=== PATIENT | male | born 1955 | race Caucasian/White ===

== ENCOUNTER 2016-05-17 18:58 | Emergency (ER) | payer SELFPAY ==
[2016-05-17 19:27] LABS: BASOPHILS 0.3 % (0.0-2.0); EOSINOPHILS 0.8 % (0-7); HEMATOCRIT 43.7 % (42.0-54.0); HEMOGLOBIN 15.2 g/dL (13.5-17.5); IMMATURE GRANULOCYTES 0.4 % (0-5); LYMPHOCYTES 40.6 % (15-50); MCH 36.2 pg (26.0-34.0); MCHC 34.8 g/dL (31.0-37.0); MEAN PLATELET VOLUME 9.5 fL (7.4-10.4); MONOCYTES 9.9 % (2-11); PLATELET COUNT 104 10x3/uL (130-400); RDW 12.5 % (11.5-14.5); WBC 7.7 10x3/uL (4.8-10.8)
[2016-05-17 19:52] LABS: ALBUMIN 4.1 g/dL (3.4-5.0); ALKALINE PHOSPHATASE 74 U/L (46-116); ALT (SGPT) 62 U/L (10-68); BILIRUBIN - TOTAL 0.24 mg/dL (0.2-1.3); CALC OSMOLALITY 272 mosm/kg (275-300); CALCIUM 8.2 mg/dL (8.5-10.1); CARBON DIOXIDE 27.1 mmol/L (21.0-32.0); CHLORIDE - SERUM 100 mmol/L (98-107); CREATININE - SERUM 0.8 mg/dL (0.6-1.3); GLUCOSE 98 mg/dL (74-106); POTASSIUM - SERUM 4.7 mmol/L (3.5-5.1); PROTEIN - SERUM 7.3 g/dL (6.4-8.2); SODIUM 137 mmol/L (136-145); UREA NITROGEN 10 mg/dL (7-18); eGFR NON AFRICAN AMERICAN > 90 mL/min (90-120)
[2016-05-17 20:03] LABS: CHOL - HDL RATIO 1.8 ratio (2.3-4.9); CHOLESTEROL, TOTAL 149 mg/dL (0-200); CKMB 2.2 U/L (0.0-3.6); CREATINE KINASE 216 UL (21-232); HDL CHOLESTEROL 81 mg/dL (32-96); LDL CHOLESTEROL 56 mg/dL (0-100); LDL-HDL RATIO 0.7 ratio (1.5-3.5); TRIGLYCERIDE 63 mg/dL (30-200); TROPONIN-I < 0.017 ng/mL (0.000-0.060)
== END 2016-05-17 21:28 | disposition home or self-care (01) ==
LOC: D.ER 18:58
PROVIDERS: Family Medicine
DX: R07.89 Other chest pain (principal); Y04.2XXA Assault by strike against or bumped into by another person, initial encounter; Y93.89 Activity, other specified; Y92.89 Other specified places as the place of occurrence of the external cause; F17.200 Nicotine dependence, unspecified, uncomplicated

== ENCOUNTER 2018-04-30 11:52 | Inpatient (IN) | payer MEDICAID ==
[~2018-04-30] VITALS: Ht 185.4 cm; Wt 61.2 kg
[2018-04-30 13:00] LABS: BASOPHILS 0.2 % (0-2); EOSINOPHILS 0 % (0-7); HEMOGLOBIN 13.3 g/dL (13.5-17.5); IMMATURE GRANULOCYTES 0.2 % (0-5); LYMPHOCYTES 23.9 % (15-50); MCH 37.4 pg (26.0-34.0); MCV 106.7 fL (80.0-100.0); MEAN PLATELET VOLUME 9.2 fL (7.4-10.4); MONOCYTES 6.3 % (2-11); NEUTROPHILS 69.4 % (40-80); RBC 3.56 10x6/uL (4.20-6.10); WBC 4.6 10x3/uL (4.8-10.8)
[2018-04-30 13:11] LABS: ANION GAP 9.5 mmol/L (8-16); BILIRUBIN - TOTAL 0.35 mg/dL (0.2-1.3); CALCIUM 8.8 mg/dL (8.5-10.1); CARBON DIOXIDE 24.7 mmol/L (21.0-32.0); CREATININE - SERUM 2.7 mg/dL (0.6-1.3); POTASSIUM - SERUM 3.2 mmol/L (3.5-5.1); PROTEIN - SERUM 7.2 g/dL (6.4-8.2)
[2018-04-30 13:40] LABS: PLATELET COUNT 28 10x3/uL (130-400)
--- NOTE | 2018-04-30 13:40 | NUR ---
CRITICAL LAB VALUE PLATELET COUNT OF 28 CALLED IN BY RADHA FROM LAB. EDP NOTIFIED AT THIS TIME.
[2018-04-30 13:47] LABS: PLATELET ESTIMATE DECREASED
[2018-04-30 15:38] LABS: INR 1.05 (0.85-1.17); PROTIME 13.2 SECONDS (11.6-15.0)
--- NOTE | 2018-04-30 16:55 | NUR ---
PT SPOUSE : SHIV PEPE [phone]
--- NOTE | 2018-04-30 19:00 | NUR ---
REPORT RECEIVED AND CARE OF PT ASSUMED. PT LYING IN SUPINE POSITION VISITING WITH SPOUSE. IV IN RIGHT FA PATENT WITH LR INFUSING AT 125 ML / HR. PT JUST ARRIVED ON UNIT AT 1825.
[2018-04-30 20:00] VITALS: BP 127/80
[2018-04-30 21:19] VITALS: BP 127/80; BMI 17.8
--- NOTE | 2018-04-30 21:48 | NUR ---
ADMISSION ASSESSMENT AND HISTORY COMPLETE. SCD'S PLACED ON PT PER ORDER. IV IN RIGHT FA PATENT WITH LR INFUSING AT 125 ML / HR. FALL PRECAUTIONS PLACED PT HAD A FALL LAST NIGHT AT HOME. IS AT BEDSIDE.
--- NOTE | 2018-04-30 22:52 | NUR ---
TELEMETRY PLACED ON PT PER ORDER.
[2018-05-01] VITALS: BP 107/63
[2018-05-01 04:00] VITALS: BP 105/71
[2018-05-01 06:44] LABS: BASOPHILS 0.3 % (0-2); EOSINOPHILS 0.3 % (0-7); HEMATOCRIT 31.7 % (42.0-54.0); HEMOGLOBIN 11.1 g/dL (13.5-17.5); LYMPHOCYTES 39.2 % (15-50); MCH 36.9 pg (26.0-34.0); MCV 105.3 fL (80.0-100.0); MEAN PLATELET VOLUME 8.9 fL (7.4-10.4); MONOCYTES 12.5 % (2-11); NEUTROPHILS 47.7 % (40-80); RBC 3.01 10x6/uL (4.20-6.10); RDW 13.1 % (11.5-14.5)
[2018-05-01 06:45] LABS: PLATELET COUNT 28 10x3/uL (130-400); WBC 3.4 10x3/uL (4.8-10.8)
[2018-05-01 07:06] LABS: ALBUMIN 3.1 g/dL (3.4-5.0); BILIRUBIN - TOTAL 0.37 mg/dL (0.2-1.3); CALCIUM 8.1 mg/dL (8.5-10.1); CARBON DIOXIDE 24.9 mmol/L (21.0-32.0); MAGNESIUM - SERUM 1.3 mg/dL (1.8-2.4); POTASSIUM - SERUM 3.9 mmol/L (3.5-5.1)
--- NOTE | 2018-05-01 08:00 | NUR ---
PATIENT IN BED WITH IV INTACT. NO COMPLAINTS OR SIGNS OF DISTRESS. EXPLAINED NOT TO EAT UNTIL AFTER CT SCANS. VERBALIZED UNDERSTANDING. CALL LIGHT WITHIN REACH.
[2018-05-01 09:09] VITALS: BP 129/81
[2018-05-01 10:00] VITALS: Ht 185.4 cm; Wt 61.2 kg
--- NOTE | 2018-05-01 11:20 | NUR ---
PATIENT RECIEVED BED BATH BY AT THIS TIME. IV INTACT. CALL LIGHT WITHIN REACH.
[2018-05-01 13:15] VITALS: BP 120/80
--- NOTE | 2018-05-01 14:15 | NUR ---
URINE SPECIMEN TAKEN TO LAB.
[2018-05-01 14:19] LABS: APPEARANCE CLEAR (CLEAR); BILIRUBIN NEGATIVE (NEGATIVE); COLOR STRAW (YELLOW); GLUCOSE NEGATIVE (NEGATIVE); KETONE LARGE mg/dL (NEGATIVE); NITRITE NEGATIVE (NEGATIVE); PROTEIN TRACE mg/dL (NEGATIVE); UROBILINOGEN NORMAL (NORMAL)
[2018-05-01 14:21] LABS: BACTERIA FEW /hpf (NONE SEEN); EPITHELIAL CELLS OCC /hpf (0-5); MUCUS <1+ /lpf (NONE SEEN); RED CELLS - URINE 0-5 /hpf (0-5); WHITE CELLS - URINE 0-5 /hpf (0-5)
--- NOTE | 2018-05-01 16:30 | NUR ---
PATIENT IN BED WITH IV INTACT. NO COMPLAINTS. CALL LIGHT WITHIN REACH.
--- NOTE | 2018-05-01 18:55 | NUR ---
PATIENT IN BED WITH IV INTACT. NO COMPLAINTS OR SIGNS OF DISTRESS. FAMILY AT BEDSIDE. CALL LIGHT WITHIN REACH.
[2018-05-01 19:38] VITALS: BP 149/95
--- NOTE | 2018-05-01 21:03 | NUR ---
GAVE TYLENOL PO PER REQUEST FOR PAIN IN FOOT (GOUT - PER PT)
--- NOTE | 2018-05-01 21:03 | NUR ---
HS MEDICATIONS GIVEN. WILL CONTINUE TO MONITOR FOR NEEDS.
--- NOTE | 2018-05-01 23:29 | NUR ---
GAVE LAST OF 4 MAG 1MG RIDERS FOR LOW MAGNESIUM LEVEL, PER THE ELECTROLYTE PROTOCOL.
[2018-05-02] VITALS: BP 131/84
[2018-05-02 04:00] VITALS: BP 140/90
--- NOTE | 2018-05-02 07:30 | NUR ---
REPORT RECIEVED ASSUMED CARE. PATIENT IN BED WITH IV INTACT. NO COMPLAINTS OR SIGNS OF DISTRESS. DENIES ANY NEEDS AT THIS TIME. CALL LIGHT WITHIN REACH.
[2018-05-02 07:32] LABS: BASOPHILS 0.3 % (0-2); EOSINOPHILS 0.3 % (0-7); HEMATOCRIT 31.4 % (42.0-54.0); HEMOGLOBIN 10.9 g/dL (13.5-17.5); LYMPHOCYTES 33.2 % (15-50); MCH 36.2 pg (26.0-34.0); MCHC 34.7 g/dL (31.0-37.0); MCV 104.3 fL (80.0-100.0); MEAN PLATELET VOLUME 10.2 fL (7.4-10.4); MONOCYTES 8.5 % (2-11); NEUTROPHILS 57.7 % (40-80); RBC 3.01 10x6/uL (4.20-6.10); RDW 12.7 % (11.5-14.5); WBC 3.1 10x3/uL (4.8-10.8)
[2018-05-02 07:42] LABS: PLATELET COUNT 37 10x3/uL (130-400)
[2018-05-02 08:00] VITALS: BP 119/72
[2018-05-02 08:01] LABS: BILIRUBIN - TOTAL 0.33 mg/dL (0.2-1.3); CALCIUM 7.9 mg/dL (8.5-10.1); CARBON DIOXIDE 28.3 mmol/L (21.0-32.0); PROTEIN - SERUM 5.9 g/dL (6.4-8.2)
[2018-05-02 08:04] LABS: ANION GAP 11.6 mmol/L (8-16); CREATININE - SERUM 1.3 mg/dL (0.6-1.3); MAGNESIUM - SERUM 1.7 mg/dL (1.8-2.4); POTASSIUM - SERUM 2.9 mmol/L (3.5-5.1)
--- NOTE | 2018-05-02 08:30 | NUR ---
PATIENT SITTING UP IN BED EATING WITH NO COMPLAINTS OR SIGNS OF DISTRESS. IV INTACT. CALL LIGHT WITHIN REACH.
[2018-05-02 12:00] VITALS: BP 131/85
--- NOTE | 2018-05-02 18:55 | NUR ---
PATIENT IN BED WITH IV INTACT. NO COMPLAINTS OR SIGNS OF DISTRESS. FAMILY AT BEDSIDE. CALL LIGHT WITHIN REACH.
--- NOTE | 2018-05-02 18:57 | NUR ---
PATIENT IN BED WITH IV INTACT. NO COMPLAINTS OR SIGNS OF DISTRESS AT THIS TIME. FAMILY AT BEDSIDE. CALL LIGHT WITHIN REACH.
--- NOTE | 2018-05-02 19:00 | NUR ---
REPORT RECEIVED AND CARE OF PT ASSUMED. PT LYING IN LOW DENSON'S POSITION VISITING WITH SPOUSE. IV IN RIGHT FA PATENT WITH LR INFUSING AT 125 ML / HR. TELEMETRY IN PLACE. WILL MONITOR FOR NEEDS.
[2018-05-02 21:02] VITALS: BP 148/74
--- NOTE | 2018-05-02 21:06 | NUR ---
HS MEDICATIONS GIVEN. WILL CONTINUE TO MONITOR FOR NEEDS.
[2018-05-03 00:43] VITALS: BP 140/84
[2018-05-03 04:00] VITALS: BP 130/85
--- NOTE | 2018-05-03 05:46 | NUR ---
PT SHOWERED WITH HIBACLENS AND ALL LINENS AND GOWN CHANGED.
[2018-05-03 06:03] LABS: BASOPHILS 0.3 % (0-2); EOSINOPHILS 1.4 % (0-7); HEMATOCRIT 34.5 % (42.0-54.0); LYMPHOCYTES 41.1 % (15-50); MCH 36.6 pg (26.0-34.0); MCHC 34.8 g/dL (31.0-37.0); MCV 105.2 fL (80.0-100.0); MEAN PLATELET VOLUME 9.5 fL (7.4-10.4); MONOCYTES 10.6 % (2-11); NEUTROPHILS 46.6 % (40-80); RBC 3.28 10x6/uL (4.20-6.10); RDW 12.9 % (11.5-14.5); WBC 3.5 10x3/uL (4.8-10.8)
[2018-05-03 06:32] LABS: INR 1.02 (0.85-1.17); PROTIME 12.9 SECONDS (11.6-15.0)
[2018-05-03 06:36] LABS: ALBUMIN 3.7 g/dL (3.4-5.0); ALKALINE PHOSPHATASE 39 U/L (46-116); BILIRUBIN - TOTAL 0.67 mg/dL (0.2-1.3); CALCIUM 8.8 mg/dL (8.5-10.1); CARBON DIOXIDE 31.3 mmol/L (21.0-32.0); CHLORIDE - SERUM 101 mmol/L (98-107); MAGNESIUM - SERUM 1.6 mg/dL (1.8-2.4); SODIUM 138 mmol/L (136-145); eGFR NON AFRICAN AMERICAN 80 mL/min (90-120)
[2018-05-03 06:52] LABS: PLATELET COUNT 50 10x3/uL (130-400)
[2018-05-03 06:56] LABS: ALT (SGPT) 29 U/L (10-68); CALC OSMOLALITY 274 mosm/kg (275-300); GLUCOSE 110 mg/dL (74-106); POTASSIUM - SERUM 3.7 mmol/L (3.5-5.1); UREA NITROGEN 7 mg/dL (7-18)
[2018-05-03 07:59] LABS: PLATELET ESTIMATE DECREASED
[2018-05-03 08:09] VITALS: BP 136/80
[2018-05-03] MEDS ORDERED: NORCO 7.5/325 T1 TA1 PO (11:39)
[2018-05-03] MEDS ORDERED: MIRALAX17 GM PO (11:40)
--- NOTE | 2018-05-03 11:58 | NUR ---
RESTING WITHOUT SIGNS OF DISTRESS
[2018-05-03 12:09] VITALS: BP 130/76
[2018-05-03 12:12] LABS: FOLATE (FOLIC ACID) - SERUM 6.5 ng/mL (>3.0)
--- NOTE | 2018-05-03 13:28 | MORECARE ---
CASE MANAGEMENT DISCHARGE SUMMARY PATIENT: HARRIET PEPE UNIT: [id number] ADM DATE: 04/30/18 AGE: 62 : 53 SEX: M ROOM/BED: D.2218 AUTHOR: FORREST CARVAJAL PHYSICIAN: REFERRING PHYSICIAN: SANDIE SIMMONS MD DATE OF SERVICE: 05/03/18 Discharge Plan Patient Name: HARRIET PEPE Facility: [facility]:[place] : 1955 Planned Disposition: Home Anticipated Discharge Date: Discharge Date: Expected LOS: Initial Reviewer: [email or web address] Initial Review Date: 04/30/2018 Generated: 05/03/18 2:28 pm Patient Name: HARRIET PEPE Page [id number] at 1328 All edits/amendments must be made on the electronic document DICTATION DATE: 05/03/18 1328 DIGITAL COMMENTATOR: FREDERIC 05/03/18 1328 RPT#: [id number] DC DATE: STATUS: ADM IN [facility] [address] [place] [address] END OF REPORT
--- NOTE | 2018-05-03 13:35 | MORECARE ---
CASE MANAGEMENT DISCHARGE SUMMARY PATIENT: HARRIET PEPE UNIT: [id number] ADM DATE: 04/30/18 AGE: 62 : 53 SEX: M ROOM/BED: D.2218 AUTHOR: FORREST CARVAJAL PHYSICIAN: REFERRING PHYSICIAN: SANDIE SIMMONS MD DATE OF SERVICE: 05/03/18 Discharge Plan Patient Name: HARRIET PEPE Facility: [facility]:[place] : 1955 Planned Disposition: Home Anticipated Discharge Date: Discharge Date: Expected LOS: Initial Reviewer: [id number] Initial Review Date: 04/30/2018 Generated: 05/03/18 2:35 pm Comments DCP- Discharge Planning Updated by [id number]: Shanique Anton on 05/03/18 12:[address] Patient Name: HARRIET PEPE Admission Status: ER Accout number: [id number] Admission Date: 04-30-2018 : 1955 Admission Diagnosis: Attending: SANDIE SIMMONS Current LOS: 3 Anticipated DC Date: Planned Disposition: Home Primary Insurance: MEDICAID [place] PENDING Discharge Planning Comments: CM MET WITH PATIENT TO ASSESS DISCHARGE PLANNING NEEDS. PATIENT LIVES INDEPENDENTLY WITH HIS AND PLANS TO RETURN THERE TODAY. HE SAID HIS HOME IS INDEPENDENT WITH HIS CARE AT HOME. DENIES ANY HH OR COMMUNITY NEEDS. THERE ARE 3 STEPS TO ENTER IN HIS HOME. CM WILL CONTINUE TO FOLLOW AND ASSIST WITH DC PLANNING NEEDED Rail Layer: Shanique Anton DCPIA - Discharge Planning Initial Assessment Updated by [id number]: Shanique Anton on 05/03/18 1:28 pm * Is the patient Alert and Oriented? Yes * How many steps to enter\exit or inside your home? * PCP soniya lo * Pharmacy [facility] [address] * Preadmission Environment Home with Family * ADLs Independent * Equipment None * List name and contact numbers for known caregivers / representatives who currently or will assist patient after discharge: bryson () [phone] * Verbal permission to speak to the caregivers and representatives has been obtained from the patient. N/A * Community resources currently utilized None * Additional services required to return to the preadmission environment? No * Can the patient safely return to the preadmission environment? Yes * Has this patient been hospitalized within the prior 30 days at any hospital? No Last DP export: 05/03/18 12:28 p Patient Name: HARRIET PEPE Page 86337 at 1335 All edits/amendments must be made on the electronic document DICTATION DATE: 05/03/181333 WAGON WINDER: FREDERIC 05/03/18 133 RPT#: [id number] DC DATE: STATUS: ADM IN [facility] [address] [place] [address] END OF REPORT
--- NOTE | 2018-05-03 13:56 | NUR ---
PT VOICE UNDERSTANDING OF DC ORDERS. IV WAS DC. AT BEDSIDE.
[2018-05-03 17:11] LABS: SPE - A/G RATIO 1.8 (0.7-1.7); SPE - ALPHA-1 GLOBULIN 0.2 g/dL (0.0-0.4); SPE - ALPHA-2 GLOBULIN 0.4 g/dL (0.4-1.0); SPE - BETA GLOBULIN 0.8 g/dL (0.7-1.3); SPE - GAMMA GLOBULIN 0.7 g/dL (0.4-1.8); SPE - M-SPIKE Not Observed g/dL (Not Observed); SPE - TOTAL PROTEIN 6.2 g/dL (6.0-8.5)
--- NOTE | 2018-05-04 14:32 | MORECARE ---
CASE MANAGEMENT DISCHARGE SUMMARY PATIENT: HARRIET PEPE UNIT: [id number] ADM DATE: 04/30/18 AGE: 62 : 53 SEX: M ROOM/BED: D.2218 AUTHOR: FORREST CARVAJAL PHYSICIAN: REFERRING PHYSICIAN: SANDIE SIMMONS MD DATE OF SERVICE: 05/04/18 Discharge Plan Patient Name: HARRIET PEPE Facility: [facility]:[place] : 1955 Planned Disposition: Home Anticipated Discharge Date: Discharge Date: 05/03/2018 Expected LOS: 0 Initial Reviewer: [id number] Initial Review Date: 04/30/2018 Generated: 05/04/18 3:32 pm Comments DCP- Discharge Planning Updated by [email or web address]: Shanique Anton on 05/03/18 12:[address] Patient Name: HARRIET PEPE Admission Status: ER Accout number: [id number] Admission Date: 04-30-2018 : 1955 Admission Diagnosis: Attending: SANDIE SIMMONS Current LOS: 3 Anticipated DC Date: Planned Disposition: Home Primary Insurance: MEDICAID [place] PENDING Discharge Planning Comments: CM MET WITH PATIENT TO ASSESS DISCHARGE PLANNING NEEDS. PATIENT LIVES INDEPENDENTLY WITH HIS AND PLANS TO RETURN THERE TODAY. HE SAID HIS HOME IS INDEPENDENT WITH HIS CARE AT HOME. DENIES ANY HH OR COMMUNITY NEEDS. THERE ARE 3 STEPS TO ENTER IN HIS HOME. CM WILL CONTINUE TO FOLLOW AND ASSIST WITH DC PLANNING NEEDED Grocery Carrier: Shanique Anton DCPIA - Discharge Planning Initial Assessment Updated by [id number]: Shanique Anton on 05/03/18 1:28 pm * Is the patient Alert and Oriented? Yes * How many steps to enter\exit or inside your home? * PCP soniya lo * Pharmacy [facility] [address] * Preadmission Environment Home with Family * ADLs Independent * Equipment None * List name and contact numbers for known caregivers / representatives who currently or will assist patient after discharge: bryson () [phone] * Verbal permission to speak to the caregivers and representatives has been obtained from the patient. N/A * Community resources currently utilized None * Additional services required to return to the preadmission environment? No * Can the patient safely return to the preadmission environment? Yes * Has this patient been hospitalized within the prior 30 days at any hospital? No Last DP export: 05/03/18 12:35 p Patient Name: HARRIET PEPE Page 60477 at 1432 All edits/amendments must be made on the electronic document DICTATION DATE: 05/04/181430 SCREW MACHINE SET UP OPERATOR: FREDERIC 05/04/181430 RPT#: [id number] DC DATE:05/03/18 STATUS: [facility] [address] [place] [address] END OF REPORT
== END 2018-05-03 13:57 | disposition home or self-care (01) | DRG 809 ==
LOC: D.ER 11:52 → D.MS 15:24 → D.EDHOLD 15:24 → D.MS 17:30
PROVIDERS: Family Medicine; General Practice; Internal Medicine Hematology & Oncology; ADMIT Family Medicine
PROC: 07DR3ZX Extraction of Iliac Bone Marrow, Percutaneous Approach, Diagnostic (ICD-10-PCS; principal; 2018-05-03 09:32)
DX: D61.818 Other pancytopenia (principal); E87.1 Hypo-osmolality and hyponatremia; N17.9 Acute kidney failure, unspecified; R18.8 Other ascites; Z72.0 Tobacco use; F10.10 Alcohol abuse, uncomplicated; E87.6 Hypokalemia; D75.89 Other specified diseases of blood and blood-forming organs

== ENCOUNTER 2018-05-08 13:31 | Inpatient (IN) | payer SELFPAY ==
[~2018-05-08] VITALS: Ht 185.4 cm; Wt 59.0 kg
[2018-05-08] VITALS (7 sets, daily range): BP systolic 105–131; BP diastolic 66–86
[~2018-05-08 13:31] MED LIST: MIRALAX17 GM PO; NORCO 7.5/325 T1 TA1 PO
[2018-05-08 14:46] LABS: APTT 33.8 SECONDS (22.8-39.4); BASOPHILS 0.6 % (0-2); EOSINOPHILS 0.3 % (0-7); HEMATOCRIT 36.5 % (42.0-54.0); HEMOGLOBIN 12.6 g/dL (13.5-17.5); INR 1.21 (0.85-1.17); MCH 37.3 pg (26.0-34.0); MCHC 34.5 g/dL (31.0-37.0); MEAN PLATELET VOLUME 9.3 fL (7.4-10.4); MONOCYTES 13.7 % (2-11); NEUTROPHILS 40.4 % (40-80); PROTIME 14.8 SECONDS (11.6-15.0); RBC 3.38 10x6/uL (4.20-6.10); RDW 14.1 % (11.5-14.5); WBC 3.2 10x3/uL (4.8-10.8)
[2018-05-08 14:47] LABS: PLATELET COUNT 64 10x3/uL (130-400)
[2018-05-08 14:51] LABS: ALBUMIN 4.1 g/dL (3.4-5.0); ALKALINE PHOSPHATASE 44 U/L (46-116); ALT (SGPT) 28 U/L (10-68); BILIRUBIN - TOTAL 0.39 mg/dL (0.2-1.3); CALC OSMOLALITY 289 mosm/kg (275-300); CALCIUM 9.3 mg/dL (8.5-10.1); CARBON DIOXIDE 31.1 mmol/L (21.0-32.0); CHLORIDE - SERUM 105 mmol/L (98-107); CREATININE - SERUM 3.1 mg/dL (0.6-1.3); GLUCOSE 130 mg/dL (74-106); PROTEIN - SERUM 7.6 g/dL (6.4-8.2); SODIUM 145 mmol/L (136-145); UREA NITROGEN 10 mg/dL (7-18); eGFR NON AFRICAN AMERICAN 22 mL/min (90-120)
[2018-05-08 15:03] LABS: CKMB 1.2 U/L (0.0-3.6); CREATINE KINASE 121 UL (21-232); MAGNESIUM - SERUM 1.7 mg/dL (1.8-2.4); THYROID STIMULATING HORMONE 0.28 uIU/mL (0.36-3.74)
[2018-05-08 15:04] LABS: TROPONIN-I < 0.017 ng/mL (0.000-0.060)
[2018-05-08 15:31] LABS: PRO BNP 68 pg/mL (0-125)
[2018-05-08] MEDS ORDERED: MULTI-DAY VITAM1 TAB PO (18:38)
[2018-05-09 01:14] VITALS: BP 117/66; BMI 17.8
[2018-05-09 03:44] VITALS: BP 108/64
[2018-05-09 09:27] VITALS: BP 130/85
[2018-05-09 10:32] LABS: APPEARANCE CLEAR (CLEAR); BILIRUBIN NEGATIVE (NEGATIVE); COLOR YELLOW (YELLOW); GLUCOSE NEGATIVE (NEGATIVE); KETONE MODERATE mg/dL (NEGATIVE); NITRITE NEGATIVE (NEGATIVE); PROTEIN 1+ mg/dL (NEGATIVE); UROBILINOGEN NORMAL (NORMAL)
[2018-05-09 10:35] LABS: UDS - AMPHET NEGATIVE QUAL (NEGATIVE); UDS - BARB NEGATIVE QUAL (NEGATIVE); UDS - BENZO NEGATIVE QUAL (NEGATIVE); UDS - COCAINE NEGATIVE QUAL (NEGATIVE); UDS - OPIATE NEGATIVE QUAL (NEGATIVE); UDS - PCP NEGATIVE QUAL (NEGATIVE); UDS - THC NEGATIVE QUAL (NEGATIVE)
[2018-05-09 10:37] LABS: BACTERIA FEW /hpf (NONE SEEN); EPITHELIAL CELLS 0-5 /hpf (0-5); RED CELLS - URINE 0-5 /hpf (0-5); WHITE CELLS - URINE 0-5 /hpf (0-5)
[2018-05-09 11:42] VITALS: BP 136/77
[2018-05-09 15:57] VITALS: BP 106/56
[2018-05-09 20:00] VITALS: BP 125/99
[2018-05-10 04:00] VITALS: BP 130/85
[2018-05-10 05:45] LABS: BASOPHILS 0.3 % (0-2); EOSINOPHILS 0.3 % (0-7); HEMATOCRIT 34.5 % (42.0-54.0); HEMOGLOBIN 11.8 g/dL (13.5-17.5); MCH 36.5 pg (26.0-34.0); MCHC 34.2 g/dL (31.0-37.0); MCV 106.8 fL (80.0-100.0); MEAN PLATELET VOLUME 9.4 fL (7.4-10.4); MONOCYTES 18.5 % (2-11); NEUTROPHILS 38.9 % (40-80); RBC 3.23 10x6/uL (4.20-6.10); RDW 13.2 % (11.5-14.5); WBC 2.9 10x3/uL (4.8-10.8)
[2018-05-10 05:50] LABS: PLATELET COUNT 77 10x3/uL (130-400)
[2018-05-10 05:59] LABS: ANION GAP 11.6 mmol/L (8-16); CALCIUM 8.3 mg/dL (8.5-10.1); CARBON DIOXIDE 28.9 mmol/L (21.0-32.0); POTASSIUM - SERUM 3.5 mmol/L (3.5-5.1)
[2018-05-10 06:01] LABS: CREATININE - SERUM 1.7 mg/dL (0.6-1.3)
[2018-05-10 08:56] VITALS: BP 131/91
[2018-05-10 12:07] VITALS: BMI 17.8
[2018-05-10 19:00] VITALS: BP 131/87
[2018-05-10 21:05] VITALS: Ht 185.4 cm; Wt 59.0 kg
[2018-05-11 04:00] VITALS: BP 147/93
[2018-05-11 05:26] LABS: BASOPHILS 0.3 % (0-2); EOSINOPHILS 1.2 % (0-7); HEMATOCRIT 34.6 % (42.0-54.0); HEMOGLOBIN 12.1 g/dL (13.5-17.5); LYMPHOCYTES 33.6 % (15-50); MCH 37.2 pg (26.0-34.0); MCV 106.5 fL (80.0-100.0); MEAN PLATELET VOLUME 10.2 fL (7.4-10.4); MONOCYTES 17.1 % (2-11); NEUTROPHILS 47.8 % (40-80); PLATELET COUNT 83 10x3/uL (130-400); RBC 3.25 10x6/uL (4.20-6.10); RDW 13.1 % (11.5-14.5); WBC 3.3 10x3/uL (4.8-10.8)
[2018-05-11 05:28] LABS: CALCIUM 8.4 mg/dL (8.5-10.1); CARBON DIOXIDE 28.6 mmol/L (21.0-32.0); CREATININE - SERUM 1.3 mg/dL (0.6-1.3); POTASSIUM - SERUM 3.6 mmol/L (3.5-5.1)
[2018-05-11 07:00] VITALS: BP 145/93
--- NOTE | 2018-05-11 17:21 | MORECARE ---
CASE MANAGEMENT DISCHARGE SUMMARY PATIENT: HARRIET PEPE UNIT: [id number] ADM DATE: 05/08/18 AGE: 62 : 53 SEX: M ROOM/BED: D.2120 AUTHOR: WEI,DOC PHYSICIAN: REFERRING PHYSICIAN: DORENE CONDE MD DATE OF SERVICE: 05/11/18 Discharge Plan Patient Name: HARRIET PEPE Facility: [facility]:[place] : 1955 Planned Disposition: Home Anticipated Discharge Date: 05/11/18 Discharge Date: 05/11/2018 Expected LOS: 3 Initial Reviewer: [id number] Initial Review Date: 05/11/2018 Generated: 05/11/18 6:21 pm Comments DCP- Discharge Planning Updated by [email or web address]: Josh Mcdermott on 05/11/18 4:[address] Patient Name: HARRIET PEPE Admission Status: ER Accout number: [id number] Admission Date: 05-08-2018 : 1955 Admission Diagnosis: Attending: DORENE CONDE Current LOS: 3 Anticipated DC Date: 05-11-2018 Planned Disposition: Home Primary Insurance: UNINSURED DISCOUNT PLAN Discharge Planning Comments: CM MET WITH PT AND SPOUS IN ROOM TO DISCUSS DISCHARGE NEEDS AND PLANNING. HARRIET PEPE provided verbal consent to discuss current and ongoing needs with/in the presence of: SPOUSE, LUIS FELIPE. PT HAS NO MEDICAL EQUIPMENT AT HOME AND NO MEDICAL EQUIPMENT PROVIDER PREFERENCE. CM DISCUSSED AVAILABILITY OF HOME HEALTH, REHAB SERVICES AND MEDICAL EQUIPMENT. PT DENIES DISCHARGE NEEDS. SPOUSE TO TRANSPORT HOME AT DISCHARGE TODAY. GREASE MACHINE WORKER NURSE NOTIFIED. Assistant Portfolio Manager: Josh Mcdermott DCPIA - Discharge Planning Initial Assessment Updated by [email or web address]: Josh Mcdermott on 05/11/18 5:19 pm * Is the patient Alert and Oriented? Yes * How many steps to enter\exit or inside your home? NONE * PCP DR. FRANCO VASQUEZ, [place] * Pharmacy [facility] [address] * Preadmission Environment Home with Family * ADLs Independent * Equipment None * Other Equipment NO MEDICAL EQUIPMENT PROVIDER PREFERENCE * List name and contact numbers for known caregivers / representatives who currently or will assist patient after discharge: LUIS FELIPE PEPE, SPOUSE, * Verbal permission to speak to the caregivers and representatives has been obtained from the patient. Yes * Community resources currently utilized None * Please name any agencies selected above. NONE * Additional services required to return to the preadmission environment? No * Can the patient safely return to the preadmission environment? Yes * Has this patient been hospitalized within the prior 30 days at any hospital? Yes Patient Name: HARRIET PEPE Page 34295 at 1721 All edits/amendments must be made on the electronic document DICTATION DATE: 05/11/181720 WATER TREATMENT PLANT ENGINEER: FREDERIC 05/11/181720 RPT#: [id number] DC DATE:05/11/18 STATUS: DIS IN [facility] [address] [place] [address] END OF REPORT
[2018-05-12 09:18] LABS: HEPATITIS C ANTIBODY <0.1 S/CO RAT (0.0-0.9)
== END 2018-05-11 13:46 | disposition home or self-care (01) | DRG 808 ==
LOC: D.ER 13:31 → D.EDHOLD 15:29 → D.M2 15:29
PROVIDERS: Family Medicine; Internal Medicine Hematology & Oncology; ADMIT Internal Medicine Nephrology
DX: D61.818 Other pancytopenia (principal); G93.41 Metabolic encephalopathy; E43 Unspecified severe protein-calorie malnutrition; F10.239 Alcohol dependence with withdrawal, unspecified; F17.213 Nicotine dependence, cigarettes, with withdrawal; Z68.1 Body mass index [BMI] 19.9 or less, adult; D53.9 Nutritional anemia, unspecified

== ENCOUNTER 2018-05-22 09:44 | Inpatient (IN) | payer MEDICAID ==
[~2018-05-22] VITALS: Ht 185.4 cm; Wt 61.8 kg
[~2018-05-22 09:44] MED LIST changes: +MULTI-DAY VITAM1 TAB PO
[2018-05-22 10:48] LABS: BASOPHILS 0.5 % (0-2); EOSINOPHILS 0 % (0-7); HEMATOCRIT 32.3 % (42.0-54.0); HEMOGLOBIN 11.3 g/dL (13.5-17.5); LYMPHOCYTES 38.8 % (15-50); MCH 36.9 pg (26.0-34.0); MCV 105.6 fL (80.0-100.0); MEAN PLATELET VOLUME 8.9 fL (7.4-10.4); MONOCYTES 6.8 % (2-11); NEUTROPHILS 53.9 % (40-80); RBC 3.06 10x6/uL (4.20-6.10); RDW 13.4 % (11.5-14.5); WBC 3.7 10x3/uL (4.8-10.8)
[2018-05-22 10:52] LABS: PLATELET COUNT 52 10x3/uL (130-400)
[2018-05-22 11:01] LABS: ALBUMIN 3.5 g/dL (3.4-5.0); ALKALINE PHOSPHATASE 43 U/L (46-116); ALT (SGPT) 19 U/L (10-68); BILIRUBIN - TOTAL 0.28 mg/dL (0.2-1.3); CALC OSMOLALITY 287 mosm/kg (275-300); CALCIUM 8.2 mg/dL (8.5-10.1); CARBON DIOXIDE 26.5 mmol/L (21.0-32.0); CHLORIDE - SERUM 108 mmol/L (98-107); CREATININE - SERUM 3.1 mg/dL (0.6-1.3); GLUCOSE 106 mg/dL (74-106); POTASSIUM - SERUM 3.5 mmol/L (3.5-5.1); PROTEIN - SERUM 6.7 g/dL (6.4-8.2); SODIUM 145 mmol/L (136-145); UREA NITROGEN 11 mg/dL (7-18); eGFR NON AFRICAN AMERICAN 22 mL/min (90-120)
[2018-05-22 11:14] LABS: AMYLASE - SERUM 72 U/L (25-115); CKMB 1.5 U/L (0.0-3.6); CREATINE KINASE 277 UL (21-232); LIPASE 225 U/L (73-393); MAGNESIUM - SERUM 1.6 mg/dL (1.8-2.4)
[2018-05-22 11:22] LABS: TROPONIN-I < 0.017 ng/mL (0.000-0.060)
[2018-05-22 11:26] VITALS: BP 105/64
[2018-05-22 12:35] LABS: UDS - AMPHET NEGATIVE QUAL (NEGATIVE); UDS - BARB NEGATIVE QUAL (NEGATIVE); UDS - BENZO POSITIVE QUAL (NEGATIVE); UDS - COCAINE NEGATIVE QUAL (NEGATIVE); UDS - OPIATE NEGATIVE QUAL (NEGATIVE); UDS - PCP NEGATIVE QUAL (NEGATIVE); UDS - THC NEGATIVE QUAL (NEGATIVE)
[2018-05-22 12:36] VITALS: BP 109/77
[2018-05-22 12:43] LABS: APPEARANCE CLEAR (CLEAR); BILIRUBIN NEGATIVE (NEGATIVE); COLOR YELLOW (YELLOW); GLUCOSE NEGATIVE (NEGATIVE); KETONE MODERATE mg/dL (NEGATIVE); NITRITE NEGATIVE (NEGATIVE); PROTEIN 1+ mg/dL (NEGATIVE); SPECIFIC GRAVITY 1.015 (1.005-1.020); UROBILINOGEN NORMAL (NORMAL)
[2018-05-22 13:30] VITALS: BP 127/84
--- NOTE | 2018-05-22 14:25 | NUR ---
ATTEMPT TO CALL REPORT ON PT. ROOM DIRTY, WILL NOT TAKE REPORT UNTIL CLEAN.
[2018-05-22 14:30] VITALS: BP 118/84
[2018-05-22 15:24] VITALS: BP 121/86
--- NOTE | 2018-05-22 15:26 | NUR ---
CALLED TO CHECK IF ROOM WAS CLEAN, NO ONE HAS CLEANED IT YET.
--- NOTE | 2018-05-22 15:51 | NUR ---
PT VOIDED 350CC .
--- NOTE | 2018-05-22 16:12 | NUR ---
RECIEVED REPORT FROM NURSE VILLA IN ER.
[2018-05-22 16:38] VITALS: BMI 17.9
--- NOTE | 2018-05-22 17:06 | NUR ---
PATIENT ARRIVED TO THE FLOOR. ASSISTED TO CHANGE INTO A YELLOW GOWN, ASSESSMENT COMPLETE, HISTORY COMPLETE. PATIENT IS A&O AT THIS TIME. SCATTERED BRUISING NOTED ON LIMBS AND TRUNK. DRIED ANIMAL FECES ON BILATERAL FEET, PATIENT REPORTS THE HAS 4 LARGE DOGS AND THEY "GO TO THE BATHROOM IN THE HOUSE", STATED HE USUALLY WEARS SHOES IN THE HOUSE BUT "GUESS NOT YESTERDAY". SMALL SCABS NOTED ON BILTERAL LEGS AND LEFT ELBOW. PATIENT STATES "I HAVE BEEN FALLING A LOT LATELY" PATIENT STATES HE HAS LOST WEIGHT DOWN TO 136 FROM 238 IN UNSPECIFID TIME.
--- NOTE | 2018-05-22 17:59 | NUR ---
SPOUSE CALLED AND CHECKED ON THE PATIENT. SPOUSE REPORTS THE PATIENT "IS TAKING TOO MANY PAIN PILLS, AND WAS VERBALLY ABUSIVE TODAY, CURSING AT HER TODAY" SHE REPORTS THE PATIETN IS SCHEDULED FOR OUTPATIENT XRAY ON RIGHT LEG AND FOOT ON THURSDAY RELATED TO THE PATIENTS PAIN.
--- NOTE | 2018-05-22 19:48 | NUR ---
RECEIVED REPORT, WILL ASSUME CARE OF PT, PT IS SLEEPING, NO DISTRESS NOTICE AT THIS TIME, BED IS LOW, SRX2, CALL LIGHT IN REACH, WILL CONTINUE PLAN OF CARE
[2018-05-22 20:00] VITALS: BP 125/87
[2018-05-23 00:40] VITALS: BP 126/80
--- NOTE | 2018-05-23 01:05 | NUR ---
PT ASKING FOR TYLENOL, GAVE ORDER
[2018-05-23 04:00] VITALS: BP 114/73
--- NOTE | 2018-05-23 04:41 | NUR ---
SLEEPING, NO DISTRESS NOTICED AT THIS TIME, BED IS LOW, SRX2, CALL LIGHT IN REACH, WILL CONTINUE PLAN OF CARE
--- NOTE | 2018-05-23 04:46 | NUR ---
RN ROUNDS. ASSESSED. PT RESTING WITH NON LABORED RESPIRATIONS, CALL LIGHT IN REACH. MONITOR AND CPOC.
[2018-05-23 05:47] LABS: BASOPHILS 0.5 % (0-2); EOSINOPHILS 0.5 % (0-7); HEMATOCRIT 29.8 % (42.0-54.0); HEMOGLOBIN 10.3 g/dL (13.5-17.5); IMMATURE GRANULOCYTES 0.2 % (0-5); LYMPHOCYTES 45.5 % (15-50); MCH 36.3 pg (26.0-34.0); MCHC 34.6 g/dL (31.0-37.0); MCV 104.9 fL (80.0-100.0); MEAN PLATELET VOLUME 9.3 fL (7.4-10.4); MONOCYTES 6.8 % (2-11); NEUTROPHILS 46.5 % (40-80); PLATELET COUNT 51 10x3/uL (130-400); RBC 2.84 10x6/uL (4.20-6.10); RDW 13.2 % (11.5-14.5); WBC 4.1 10x3/uL (4.8-10.8)
[2018-05-23 06:22] LABS: ALBUMIN 3.1 g/dL (3.4-5.0); BILIRUBIN - TOTAL 0.5 mg/dL (0.2-1.3); CALCIUM 7.8 mg/dL (8.5-10.1); CARBON DIOXIDE 23.5 mmol/L (21.0-32.0); MAGNESIUM - SERUM 1.8 mg/dL (1.8-2.4); POTASSIUM - SERUM 3.5 mmol/L (3.5-5.1)
--- NOTE | 2018-05-23 07:55 | NUR ---
PT LYING DOWN, AWAKE AND ORIENTED. C/O PAIN IN RIGHT FOOT. NO SWELLING OR NOTABLE FORRESTER ON FOOT. REQUESTS TYLENOL. WILL ACCOMIDATE. CL IN REACH. SRX2.
[2018-05-23 09:27] VITALS: BP 129/95
[2018-05-23 12:05] VITALS: BP 120/78
--- NOTE | 2018-05-23 13:10 | NUR ---
LORELEI NEEDS AT THIS TIME. CALL LIGHT IN REACH. WILL CONT. PLAN OF CARE.
--- NOTE | 2018-05-23 17:46 | NUR ---
PT LYING IN BED WATCHING SUPERBOWL. NO CONCERNS/COMPLAINTS. SHOWER WAS TAKEN TODAY. CL IN REACH. SRX2.
--- NOTE | 2018-05-23 19:30 | NUR ---
RECEIVED REPORT, WILL ASSUME CARE OF PT, PT ASKING WHEN I BRING MEDS TO PLEASE BRING HIM TYLENOL, DENIES ANY OTHER NEEDS, BED IS LOW, SRX2, CALL LIGHT IN REACH, WILL CONTINUE PLAN OF CARE
[2018-05-23 20:24] VITALS: BP 134/87
--- NOTE | 2018-05-23 21:34 | NUR ---
CALLED TO CHECK ON PT
[2018-05-23 23:55] VITALS: BP 141/85
[2018-05-24 03:50] VITALS: BP 133/87
--- NOTE | 2018-05-24 04:25 | NUR ---
PT RESTING IN BED WITH NO DISTRESS. RESPS. EVEN/NONLABORED. CALL LIGHT IN REACH. MONITOR AND CPOC.
[2018-05-24 05:49] LABS: BASOPHILS 0.2 % (0-2); EOSINOPHILS 0.4 % (0-7); HEMATOCRIT 27.5 % (42.0-54.0); HEMOGLOBIN 9.7 g/dL (13.5-17.5); LYMPHOCYTES 42.1 % (15-50); MCH 36.5 pg (26.0-34.0); MCHC 35.3 g/dL (31.0-37.0); MCV 103.4 fL (80.0-100.0); MEAN PLATELET VOLUME 9.4 fL (7.4-10.4); MONOCYTES 5.5 % (2-11); NEUTROPHILS 51.8 % (40-80); PLATELET COUNT 57 10x3/uL (130-400); RBC 2.66 10x6/uL (4.20-6.10); WBC 4.6 10x3/uL (4.8-10.8)
[2018-05-24 06:11] LABS: ANION GAP 13.6 mmol/L (8-16); CALCIUM 7.9 mg/dL (8.5-10.1); CARBON DIOXIDE 25.4 mmol/L (21.0-32.0)
[2018-05-24 06:24] LABS: CREATININE - SERUM 1.3 mg/dL (0.6-1.3)
[2018-05-24 08:02] LABS: PLATELET ESTIMATE DECREASED
[2018-05-24 08:05] LABS: ROULEAUX OCC
--- NOTE | 2018-05-24 10:16 | NUR ---
ALERT AND ORIENTED X4. RETURN TO ROOM FROM AMBULATING IN [place] WITH PHYSICAL THERAPY. SPOUSE ARRIVES REQUESTING CASE MANAGEMENT TO ACCOMPANY ENTERING ROOM. SPOUSE STATES, "I DO NOT WANT HIM TO COME HOME UNTIL HE HAS HAD TREATMENT. THIS IS THE THIRD TIME SINCE APRIL, HE HAS BEEN ADMITTED. HE NEEDS HELP, I CAN'T EVEN WORK BECAUSE WE ARE UP HERE OR I'M AT HOME TAKING CARE OF HIM." REPORT INFORMATION TO . CONTINUE PLAN OF CARE AND SAFETY PRECAUTIONS.
--- NOTE | 2018-05-24 12:53 | MORECARE ---
CASE MANAGEMENT DISCHARGE SUMMARY PATIENT: HARRIET PEPE UNIT: [id number] ADM DATE: 05/22/18 AGE: 62 : 53 SEX: M ROOM/BED: D.2113 AUTHOR: FORREST CARVAJAL PHYSICIAN: REFERRING PHYSICIAN: DORENE CONDE MD DATE OF SERVICE: 05/24/18 Discharge Plan Patient Name: HARRIET PEPE Facility: [facility]:[place] : 1955 Planned Disposition: Home Anticipated Discharge Date: 05/25/18 Discharge Date: Expected LOS: 3 Initial Reviewer: [email or web address] Initial Review Date: 05/22/2018 Generated: 05/24/18 1:53 pm DCPIA - Discharge Planning Initial Assessment Updated by [email or web address]: Josh Mcdermott on 05/24/18 12:53 pm * Is the patient Alert and Oriented? Yes * How many steps to enter\exit or inside your home? NONE * PCP DR. FRANCO VASQUEZ, [place] * Pharmacy [facility] * Preadmission Environment Home with Family * ADLs Independent * Equipment None * Other Equipment NO MEDICAL EQUIPMENT PROVIDER PREFERENCE * List name and contact numbers for known caregivers / representatives who currently or will assist patient after discharge: LUIS FELIPE PEPE, SPOUSE, * Verbal permission to speak to the caregivers and representatives has been obtained from the patient. Yes * Community resources currently utilized None * Please name any agencies selected above. NONE * Additional services required to return to the preadmission environment? No * Can the patient safely return to the preadmission environment? Yes * Has this patient been hospitalized within the prior 30 days at any hospital? Yes Coverage Notice Reviewer: [id number] - Josh Mcdermott Notice Issued Date-Time: 05/24/2018 9:25 Notice Type: IM Discharge Notice Notice Delivered To: Patient Relationship to Patient: Environmental Engineering Manager Name: Delivery Method: HAND - Hand Delivered Zuri Days: Prior Verbal Notification: Recipient Understood Notice: Yes Recipient Signature: Yes Med Rec Note Co-signed by Attending: Coverage Notice Comment: Patient Name: HARRIET PEPE Page 39490 at 1253 All edits/amendments must be made on the electronic document DICTATION DATE: 05/24/18 125 TECHNICAL ASSOCIATE: FREDERIC 05/24/18 125 RPT#: [id number] DC DATE: STATUS: ADM IN [facility] [address] [place] [address] END OF REPORT
[2018-05-24 13:02] VITALS: Ht 185.4 cm; Wt 61.8 kg
--- NOTE | 2018-05-24 13:08 | MORECARE ---
CASE MANAGEMENT DISCHARGE SUMMARY PATIENT: HARRIET PEPE UNIT: [id number] ADM DATE: 05/22/18 AGE: 62 : 53 SEX: M ROOM/BED: D.2113 AUTHOR: EWIDOC PHYSICIAN: REFERRING PHYSICIAN: DORENE CONDE MD DATE OF SERVICE: 05/24/18 Discharge Plan Patient Name: HARRIET PEPE Facility: [facility]:[place] : 1955 Planned Disposition: Home Anticipated Discharge Date: 05/25/18 Discharge Date: Expected LOS: 3 Initial Reviewer: [email or web address] Initial Review Date: 05/22/2018 Generated: 05/24/18 2:08 pm Comments DCP- Discharge Planning Updated by [email or web address]: Josh Mcdermott on 05/24/18 12:[address] Patient Name: HARRIET PEPE Admission Status: ER Accout number: [id number] Admission Date: 05-22-2018 : 1955 Admission Diagnosis: Attending: DORENE CONDE Current LOS: 2 Anticipated DC Date: 05-25-2018 Planned Disposition: Home Primary Insurance: MEDICAID [place] PENDING Discharge Planning Comments: CM RECEIVED CALL FROM LUIS FELIPE PEPE, SPOUSE, ; LUIS FELIPE STATES SHE IS TIRED OF PT'S DRINKING AND TAKING PRESCRIPTION MEDICATIONS. PT HAS TOLD EVERYONE THAT HE IS NOT DRINKING ANYMORE AND IT IS A LIE. SHE HAS FOUND TWO EMPTY PINT WHISKEY BOTTLES HIDDEN IN CABINETS. LUIS FELIPE REPORTS PT HAS A RECOVERY GROUP AT [place] BUT DOES NOT GO. SHE WOULD LIKE PT TO GO TO REHAB PRIOR TO RETURN HOME. CM EXPLAINED THAT PT WILL NEED TO BE AGREEABLE FOR CM TO ASSIST AND THAT CM WILL SPEAK TO PT THIS MORNING. CM DISCUSSED HOW TO APPLY FOR AN INVOLUNTARY COMMMITMENT FOR ALCOHOL AND DRUG ABUSE [facility] [place] [facility] COMPLIANCE DIRECTOR'S OFFICE. LUIS FELIPE WILL VISIT WITH THEM AND THEN COME TO HOSPITAL TO SEE PT. CM MET WITH PT IN ROOM TO DISCUSS DISCHARGE PLANNING AND NEEDS. PT REPORTS LIVING AT HOME INDEPENDENTLY WITH SPOUSE. PT HAS NO MEDICAL EQUIPMENT AND NO OUTSIDE SERVICES ASSISTING IN THE HOME. CM DISCUSSED AVAILABILITY OF HOME HEALTH, REHAB SERVICES AND MEDICAL EQUIPMENT. PT DENIES DISCHARGE NEEDS, REPORTS HIS WILL PICK HIM UP FOR DISCHARGE HOME. IMPORTANT MESSAGE FROM MEDICARE PROVIDED AND EXPLAINED. CM DISCUSSED AVAILABILITY OF DRUG AND ALCOHOL TREATMENT RESOURCES IN [place] AND [place]. PT REPORTS THAT HE HAS BEEN SOBER FOR TWO WEEKS AND HAS NOT DRANK SINCE THEN. PT REPORTS HE WAS DRINKING A PINT OF WHISKEY PER DAY UNTIL THAT TIME. PT DENIES NEED OF TREATMENT AND COMMUNITY RESOURCE INFORMATION REPORTING HE HAS A RECOVERY GROUP TO GO TO AT [place] IF NEEDED. PT REPORTS HE HAS QUIT SMOKING AND IS NOW VAPING AND WILL BE TRYING TO WEAN HIMSELF OFF THE VAPE ALSO. CM LEFT PT WITH THE COMMUNITY SUPPORT AND TREATMENT CENTER INFORMATION. PT'S SPOUSE ARRIVED, ASKED CM TO GO INTO ROOM WITH HER TO SPEAK TO PT. PT PROVIDED PERMISSION TO DISCUSS TREATMENT AND DISCHARGE PLANNING WITH HIS LUIS FELIPE. LUIS FELIPE INFORMED PT SHE IS TIRED OF HIS DRINKING AND LYING TO HER AND [place] FAMILY. SHE DEMANDED THAT PT GO TO TREATMENT BEFORE COMING HOME OR SHE IS LEAVING AND PT. PT AGREED TO GO TO TREATMENT. PT CALLED [facility], WAS TOLD THAT THERE IS WAITING LIST AND IT COULD BE "A WHILE" BEFORE THEY HAVE TREATMENT AVAILABILTY. PT PLACED HIMSELF ON THE LIST FOR ADMISSION AND THEY WILL CALL PT WHEN BED BECOMES AVAILABLE. PT REPORTS PLAN TO DISCHARGE HOME UNTIL HE CAN GET INTO TREATMENT. PT'S SPOUSE REPORTED THAT SHE WANTS PT TO STAY UNTIL HE GETS INTO TREATMENT. CM EXPLAINED THAT PT APPEARS STABLE AND THE DOCTOR HAD INFORMED PT YESTERDAY THAT PT MAY DISCHARGE TODAY. PT AGAIN REPORTS PLAN TO GO HOME UNTIL HE CAN GO TO TREATMENT. PT'S SPOUSE WILL CONTINUE TO SEEK OTHER TREATMENT PROVIDERS OUTSIDE [place] FOR PT. PT STATES HE WILL ONLY GO TO [facility] AND IS NOT LEAVING [facility]. PT DENIES FURTHER DISCHARGE NEEDS AT THIS TIME. PT ON WAITING LIST FOR [facility], PT PLANS TO DISCHARGE HOME UNTIL HE IS ACCEPTED UPON BED AVAILABILITY. CM TO FOLLOW AND ASSIST NEEDED. Graduate Recruiter: Josh Mcdermott DCPIA - Discharge Planning Initial Assessment Updated by [email or web address]: Josh Mcdermott on 05/24/18 12:53 pm * Is the patient Alert and Oriented? Yes * How many steps to enter\\exit or inside your home? NONE * PCP DR. FRANCO VASQUEZ, [place] * Pharmacy [facility] [address] * Preadmission Environment Home with Family * ADLs Independent * Equipment None * Other Equipment NO MEDICAL EQUIPMENT PROVIDER PREFERENCE * List name and contact numbers for known caregivers / representatives who currently or will assist patient after discharge: LUIS FELIPE PEPE, SPOUSE, * Verbal permission to speak to the caregivers and representatives has been obtained from the patient. Yes * Community resources currently utilized None * Please name any agencies selected above. NONE * Additional services required to return to the preadmission environment? No * Can the patient safely return to the preadmission environment? Yes * Has this patient been hospitalized within the prior 30 days at any hospital? Yes Coverage Notice Reviewer: [email or web address] Dana Mcdermott Notice Issued Date-Time: 05/24/2018 9:25 Notice Type: IM Discharge Notice Notice Delivered To: Patient Relationship to Patient: Molding Line Operator Name: Delivery Method: HAND - Hand Delivered Zuri Days: Prior Verbal Notification: Recipient Understood Notice: Yes Recipient Signature: Yes Med Rec Note Co-signed by Attending: Coverage Notice Comment: Last DP export: 05/24/18 11:53 am Patient Name: HARRIET PEPE Page 26159 at 1308 All edits/amendments must be made on the electronic document DICTATION DATE: 05/24/18 1308 GUT CARRIER: FREDERIC 05/24/18 1308 RPT#: [id number] DC DATE: STATUS: ADM IN [facility] [address] [place] [address] END OF REPORT
--- NOTE | 2018-05-24 18:03 | NUR ---
ALERT AND ORIENTED X4. RESTING IN BED. NO CHANGE. CONTINUE PLAN OF CARE AND SAFETY PRECAUTIONS.
--- NOTE | 2018-05-24 19:53 | NUR ---
RECEIVED REPORT, WILL ASSUME CARE PT, PT IS SLEEPING, NO DISTRESS NOTICED AT THIS TIME, BED IS LOW, SRX2, CALL LIGHT IN REACH, WILL CONTINUE PLAN OF CARE
[2018-05-24 20:00] VITALS: BP 141/90
[2018-05-25] VITALS: BP 143/100
[2018-05-25 04:00] VITALS: BP 114/57
--- NOTE | 2018-05-25 04:51 | NUR ---
SLEEPING WITH HEAD COVERED UP WITH BLANKET, BED IS LOW, SRX2, CALL LIGHT IN REACH, WILL CONTINUE PLAN OF CARE
[2018-05-25 05:43] LABS: BASOPHILS 0.5 % (0-2); EOSINOPHILS 1.2 % (0-7); HEMATOCRIT 29.1 % (42.0-54.0); LYMPHOCYTES 40.1 % (15-50); MCH 36.4 pg (26.0-34.0); MCHC 34.4 g/dL (31.0-37.0); MEAN PLATELET VOLUME 9.4 fL (7.4-10.4); MONOCYTES 8.8 % (2-11); NEUTROPHILS 49.4 % (40-80); PLATELET COUNT 68 10x3/uL (130-400); RBC 2.75 10x6/uL (4.20-6.10); RDW 13.2 % (11.5-14.5); WBC 4.1 10x3/uL (4.8-10.8)
[2018-05-25 06:07] LABS: CALC OSMOLALITY 278 mosm/kg (275-300); CALCIUM 8.1 mg/dL (8.5-10.1); CARBON DIOXIDE 25.4 mmol/L (21.0-32.0); CHLORIDE - SERUM 105 mmol/L (98-107); GLUCOSE 94 mg/dL (74-106); POTASSIUM - SERUM 3.5 mmol/L (3.5-5.1); SODIUM 141 mmol/L (136-145); UREA NITROGEN 8 mg/dL (7-18); eGFR NON AFRICAN AMERICAN 90 mL/min (90-120)
[2018-05-25 06:11] LABS: CREATININE - SERUM 0.9 mg/dL (0.6-1.3)
[2018-05-25 06:12] LABS: MCV 105.8 fL (80.0-100.0)
[2018-05-25 08:52] VITALS: BP 112/79
--- NOTE | 2018-05-25 09:11 | MORECARE ---
CASE MANAGEMENT DISCHARGE SUMMARY PATIENT: HARRIET PEPE UNIT: [id number] ADM DATE: 05/22/18 AGE: 62 : 53 SEX: M ROOM/BED: D.2113 AUTHOR: WEIDOC PHYSICIAN: REFERRING PHYSICIAN: DORENE CONDE MD DATE OF SERVICE: 05/25/18 Discharge Plan Patient Name: HARRIET PEPE Facility: [facility]:[place] : 1955 Planned Disposition: Home Anticipated Discharge Date: 05/25/18 Discharge Date: Expected LOS: 3 Initial Reviewer: [id number] Initial Review Date: 05/22/2018 Generated: 05/25/18 10:11 am Comments DCP- Discharge Planning Updated by [email or web address]: Josh Mcdermott on 05/25/18 8:[address] Patient Name: HARRIET PEPE Encounter No: [id number] : 1955 Primary Insurance: MEDICAID [place] PENDING Anticipated DC Date: 05-25-2018 Planned Disposition: Home DCP follow-up note: CM RECEIVED CALL FROM SHIV LI, SPOUSE, ; LUIS FELIPE WILL DRUG COORDINATOR PT TODAY AND ENSURE PT GOES TO [facility] ADDICTION SUPPORT GROUP UNTIL PT IS ACCEPTED AT [facility], SHE WILL BE HERE LATER TODAY. CM PAGED MARIAH MCKAY TO NOTIFY OF PT / SPOUSE'S AGREED UPON DISCHARGE PLAN FOR TODAY. Josh Mcdermott CASE MANAGEMENT DCP- Discharge Planning Updated by [id number]: Josh Mcdermott on 05/24/18 12:[address] Patient Name: HARRIET PEPE Admission Status: ER Accout number: [id number] Admission Date: 05-22-2018 : 1955 Admission Diagnosis: Attending: DORENE CONDE Current LOS: 2 Anticipated DC Date: 05-25-2018 Planned Disposition: Home Primary Insurance: MEDICAID [place] PENDING Discharge Planning Comments: CM RECEIVED CALL FROM LUIS FELIPE PEPE, SPOUSE, ; LUIS FELIPE STATES SHE IS TIRED OF PT'S DRINKING AND TAKING PRESCRIPTION MEDICATIONS. PT HAS TOLD EVERYONE THAT HE IS NOT DRINKING ANYMORE AND IT IS A LIE. SHE HAS FOUND TWO EMPTY PINT WHISKEY BOTTLES HIDDEN IN CABINETS. LUIS FELIPE REPORTS PT HAS A RECOVERY GROUP AT [place] BUT DOES NOT GO. SHE WOULD LIKE PT TO GO TO REHAB PRIOR TO RETURN HOME. CM EXPLAINED THAT PT WILL NEED TO BE AGREEABLE FOR CM TO ASSIST AND THAT CM WILL SPEAK TO PT THIS MORNING. CM DISCUSSED HOW TO APPLY FOR AN INVOLUNTARY COMMMITMENT FOR ALCOHOL AND DRUG ABUSE TH[facility]UGH THE [facility] OVER[facility] IRRIGATOR'S OFFICE. LUIS FELIPE WILL VISIT WITH THEM AND THEN COME TO HOSPITAL TO SEE PT. CM MET WITH PT IN ROOM TO DISCUSS DISCHARGE PLANNING AND NEEDS. PT REPORTS LIVING AT HOME INDEPENDENTLY WITH SPOUSE. PT HAS NO MEDICAL EQUIPMENT AND NO OUTSIDE SERVICES ASSISTING IN THE HOME. CM DISCUSSED AVAILABILITY OF HOME HEALTH, REHAB SERVICES AND MEDICAL EQUIPMENT. PT DENIES DISCHARGE NEEDS, REPORTS HIS WILL PICK HIM UP FOR DISCHARGE HOME. IMPORTANT MESSAGE FROM MEDICARE PROVIDED AND EXPLAINED. CM DISCUSSED AVAILABILITY OF DRUG AND ALCOHOL TREATMENT RESOURCES IN [place] AND [place]. PT REPORTS THAT HE HAS BEEN SOBER FOR TWO WEEKS AND HAS NOT DRANK SINCE THEN. PT REPORTS HE WAS DRINKING A PINT OF WHISKEY PER DAY UNTIL THAT TIME. PT DENIES NEED OF TREATMENT AND COMMUNITY RESOURCE INFORMATION REPORTING HE HAS A RECOVERY GROUP TO GO TO AT [place] IF NEEDED. PT REPORTS HE HAS QUIT SMOKING AND IS NOW VAPING AND WILL BE TRYING TO WEAN HIMSELF OFF THE VAPE ALSO. CM LEFT PT WITH THE [facility] SUPPORT AND TREATMENT CENTER INFORMATION. PT'S SPOUSE ARRIVED, ASKED CM TO GO INTO ROOM WITH HER TO SPEAK TO PT. PT PROVIDED PERMISSION TO DISCUSS TREATMENT AND DISCHARGE PLANNING WITH HIS LUIS FELIPE. LUIS FELIPE INFORMED PT SHE IS TIRED OF HIS DRINKING AND LYING TO HER AND [place] FAMILY. SHE DEMANDED THAT PT GO TO TREATMENT BEFORE COMING HOME OR SHE IS LEAVING AND PT. PT AGREED TO GO TO TREATMENT. PT CALLED [facility], WAS TOLD THAT THERE IS WAITING LIST AND IT COULD BE "A WHILE" BEFORE THEY HAVE TREATMENT AVAILABILTY. PT PLACED HIMSELF ON THE LIST FOR ADMISSION AND THEY WILL CALL PT WHEN BED BECOMES AVAILABLE. PT REPORTS PLAN TO DISCHARGE HOME UNTIL HE CAN GET INTO TREATMENT. PT'S SPOUSE REPORTED THAT SHE WANTS PT TO STAY UNTIL HE GETS INTO TREATMENT. CM EXPLAINED THAT PT APPEARS STABLE AND THE DOCTOR HAD INFORMED PT YESTERDAY THAT PT MAY DISCHARGE TODAY. PT AGAIN REPORTS PLAN TO GO HOME UNTIL HE CAN GO TO TREATMENT. PT'S SPOUSE WILL CONTINUE TO SEEK OTHER TREATMENT PROVIDERS OUTSIDE [place] FOR PT. PT STATES HE WILL ONLY GO TO [facility] AND IS NOT LEAVING [place] AREA. PT DENIES FURTHER DISCHARGE NEEDS AT THIS TIME. [facility], PT PLANS TO DISCHARGE HOME UNTIL HE IS ACCEPTED UPON BED AVAILABILITY. CM TO FOLLOW AND ASSIST NEEDED. Private Duty Rn: Josh Mcdermott DCPIA - Discharge Planning Initial Assessment Updated by [id number]: Josh Mcdermott on 05/24/18 12:53 pm * Is the patient Alert and Oriented? Yes * How many steps to enter\\exit or inside your home? NONE * PCP DR. FRANCO VASQUEZ, [place] * Pharmacy [facility] [address] * Preadmission Environment Home with Family * ADLs Independent * Equipment None * Other Equipment NO MEDICAL EQUIPMENT PROVIDER PREFERENCE * List name and contact numbers for known caregivers / representatives who currently or will assist patient after discharge: LUIS FELIPE PEPE, SPOUSE, * Verbal permission to speak to the caregivers and representatives has been obtained from the patient. Yes * Community resources currently utilized None * Please name any agencies selected above. NONE * Additional services required to return to the preadmission environment? No * Can the patient safely return to the preadmission environment? Yes * Has this patient been hospitalized within the prior 30 days at any hospital? Yes Coverage Notice Reviewer: [id number] - Josh Mcdermott Notice Issued Date-Time: 05/24/2018 9:25 Notice Type: IM Discharge Notice Notice Delivered To: Patient Relationship to Patient: Brake Repair Supervisor Name: Delivery Method: HAND - Hand Delivered Zuri Days: Prior Verbal Notification: Recipient Understood Notice: Yes Recipient Signature: Yes Med Rec Note Co-signed by Attending: Coverage Notice Comment: Last DP export: 05/24/18 12:08 pm Patient Name: HARRIET PEPE Page 68707 at 0911 All edits/amendments must be made on the electronic document DICTATION DATE: 05/25/18910 CAD DESIGNER DRAFTER: FREDERIC 05/25/18910 RPT#: [id number] DC DATE: STATUS: ADM IN [facility] [address] [place] [address] END OF REPORT
--- NOTE | 2018-05-25 13:05 | NUR ---
ARRIVES TO ROOM. ALERT AND ORIENTED X4. SITTING UP IN BED. DC LT WRIST IV TIP INTACT. DISCHARGE INSTRUCTIONS GIVEN VERBALLY AND WRITTEN. DISCHARGE PAPERS SIGNED ON CHART. ESCORT TO RIDE VIA WHEELCHAIR. REMAINS FREE FROM INJURY.
--- NOTE | 2018-05-26 07:50 | MORECARE ---
CASE MANAGEMENT DISCHARGE SUMMARY PATIENT: HARRIET PEPE UNIT: [id number] ADM DATE: 05/22/18 AGE: 62 : 53 SEX: M ROOM/BED: D.2113 AUTHOR: FORREST CARVAJAL PHYSICIAN: REFERRING PHYSICIAN: DORENE CONDE MD DATE OF SERVICE: 05/26/18 Discharge Plan Patient Name: HARRIET PEPE Facility: [facility]:[place] : 1955 Planned Disposition: Home Anticipated Discharge Date: 05/25/18 Discharge Date: 05/25/2018 Expected LOS: 3 Initial Reviewer: [id number] Initial Review Date: 05/22/2018 Generated: 05/26/18 8:50 am Comments DCP- Discharge Planning Updated by [id number]: Josh Mcdermott on 05/25/18 8:[address] Patient Name: HARRIET PEPE Encounter No: [id number] : 1955 Primary Insurance: MEDICAID [place] PENDING Anticipated DC Date: 05-25-2018 Planned Disposition: Home DCP follow-up note: CM RECEIVED CALL FROM SHIV LI, SPOUSE, ; LUIS FELIPE WILL LAMINATOR PT TODAY AND ENSURE PT GOES TO [facility] ADDICTION SUPPORT GROUP UNTIL PT IS ACCEPTED AT [facility], SHE WILL BE HERE LATER TODAY. CM PAGED MARIAH MCKAY TO NOTIFY OF PT / SPOUSE'S AGREED UPON DISCHARGE PLAN FOR TODAY. Josh Mcdermott CASE MARLY DCP- Discharge Planning Updated by [id number]: Josh Mcdermott on 05/24/18 12:[address] Patient Name: HARRIET PEPE Admission Status: ER Accout number: [id number] Admission Date: 05-22-2018 : 1955 Admission Diagnosis: Attending: DORENE CONDE Current LOS: 2 Anticipated DC Date: 05-25-2018 Planned Disposition: Home Primary Insurance: MEDICAID [place] PENDING Discharge Planning Comments: CM RECEIVED CALL FROM LUIS FELIPE PEPE, SPOUSE, ; LUIS FELIPE STATES SHE IS TIRED OF PT'S DRINKING AND TAKING PRESCRIPTION MEDICATIONS. PT HAS TOLD EVERYONE THAT HE IS NOT DRINKING ANYMORE AND IT IS A LIE. SHE HAS FOUND TWO EMPTY PINT WHISKEY BOTTLES HIDDEN IN CABINETS. LUIS FELIPE REPORTS PT HAS A RECOVERY GROUP AT [place] BUT DOES NOT GO. SHE WOULD LIKE PT TO GO TO REHAB PRIOR TO RETURN HOME. CM EXPLAINED THAT PT WILL NEED TO BE AGREEABLE FOR CM TO ASSIST AND THAT CM WILL SPEAK TO PT THIS MORNING. CM DISCUSSED HOW TO APPLY FOR AN INVOLUNTARY COMMMITMENT FOR ALCOHOL AND DRUG ABUSE [facility]UGH [facility] OFF[facility]. LUIS FELIPE WILL VISIT WITH THEM AND THEN COME TO HOSPITAL TO SEE PT. CM MET WITH PT IN ROOM TO DISCUSS DISCHARGE PLANNING AND NEEDS. PT REPORTS LIVING AT HOME INDEPENDENTLY WITH SPOUSE. PT HAS NO MEDICAL EQUIPMENT AND NO OUTSIDE SERVICES ASSISTING IN THE HOME. CM DISCUSSED AVAILABILITY OF HOME HEALTH, REHAB SERVICES AND MEDICAL EQUIPMENT. PT DENIES DISCHARGE NEEDS, REPORTS HIS WILL PICK HIM UP FOR DISCHARGE HOME. IMPORTANT MESSAGE FROM MEDICARE PROVIDED AND EXPLAINED. CM DISCUSSED AVAILABILITY OF DRUG AND ALCOHOL TREATMENT RESOURCES IN [place] AND [place]. PT REPORTS THAT HE HAS BEEN SOBER FOR TWO WEEKS AND HAS NOT DRANK SINCE THEN. PT REPORTS HE WAS DRINKING A PINT OF WHISKEY PER DAY UNTIL THAT TIME. PT DENIES NEED OF TREATMENT AND COMMUNITY RESOURCE INFORMATION REPORTING HE HAS A RECOVERY GROUP TO GO TO AT [place] IF NEEDED. PT REPORTS HE HAS QUIT SMOKING AND IS NOW VAPING AND WILL BE TRYING TO WEAN HIMSELF OFF THE VAPE ALSO. CM LEFT PT WITH THE COMM[facility] SUPPORT [facility]MENT CENTER INFORMATION. PT'S SPOUSE ARRIVED, ASKED CM TO GO INTO ROOM WITH HER TO SPEAK TO PT. PT PROVIDED PERMISSION TO DISCUSS TREATMENT AND DISCHARGE PLANNING WITH HIS LUIS FELIPE. LUIS FELIPE INFORMED PT SHE IS TIRED OF HIS DRINKING AND LYING TO HER AND [place] FAMILY. SHE DEMANDED THAT PT GO TO TREATMENT BEFORE COMING HOME OR SHE IS LEAVING AND PT. PT AGREED TO GO TO TREATMENT. [facility], WAS TOLD THAT THERE IS WAITING LIST AND IT COULD BE "A WHILE" BEFORE THEY HAVE TREATMENT AVAILABILTY. PT PLACED HIMSELF ON THE LIST FOR ADMISSION AND THEY WILL CALL PT WHEN BED BECOMES AVAILABLE. PT REPORTS PLAN TO DISCHARGE HOME UNTIL HE CAN GET INTO TREATMENT. PT'S SPOUSE REPORTED THAT SHE WANTS PT TO STAY UNTIL HE GETS INTO TREATMENT. CM EXPLAINED THAT PT APPEARS STABLE AND THE DOCTOR HAD INFORMED PT YESTERDAY THAT PT MAY DISCHARGE TODAY. PT AGAIN REPORTS PLAN TO GO HOME UNTIL HE CAN GO TO TREATMENT. PT'S SPOUSE WILL CONTINUE TO SEEK OTHER TREATMENT PROVIDERS OUTSIDE [place] FOR PT. PT STATES HE WILL ONLY GO TO [facility] AND IS NOT LEAVING [place] AREA. PT DENIES FURTHER DISCHARGE NEEDS AT THIS TIME. PT ON WAITING LIST FOR [facility], PT PLANS TO DISCHARGE HOME UNTIL HE IS ACCEPTED UPON BED AVAILABILITY. CM TO FOLLOW AND ASSIST NEEDED. Plug Sorter: Josh Mcdermott DCPIA - Discharge Planning Initial Assessment Updated by [id number]: Josh Mcdermott on 05/24/18 12:53 pm * Is the patient Alert and Oriented? Yes * How many steps to enter\\exit or inside your home? NONE * PCP DR. FRANCO VASQUEZ, [place] * Pharmacy [facility] [address] * Preadmission Environment Home with Family * ADLs Independent * Equipment None * Other Equipment NO MEDICAL EQUIPMENT PROVIDER PREFERENCE * List name and contact numbers for known caregivers / representatives who currently or will assist patient after discharge: LUIS FELIPE PPEE, SPOUSE, * Verbal permission to speak to the caregivers and representatives has been obtained from the patient. Yes * Community resources currently utilized None * Please name any agencies selected above. NONE * Additional services required to return to the preadmission environment? No * Can the patient safely return to the preadmission environment? Yes * Has this patient been hospitalized within the prior 30 days at any hospital? Yes Coverage Notice Reviewer: [id number] - Josh Mcdermott Notice Issued Date-Time: 05/24/2018 9:25 Notice Type: IM Discharge Notice Notice Delivered To: Patient Relationship to Patient: Sound Recordist Name: Delivery Method: HAND - Hand Delivered Zuri Days: Prior Verbal Notification: Recipient Understood Notice: Yes Recipient Signature: Yes Med Rec Note Co-signed by Attending: Coverage Notice Comment: Last DP export: 05/25/18 8:11 am Patient Name: HARRIET PEPE Page 53660 at 0750 All edits/amendments must be made on the electronic document DICTATION DATE: 05/26/18748 BAGGAGE SECURITY CHECKER: FREDERIC 05/26/1849 RPT#: [id number] DC DATE:05/25/18 [place] [id number] [place] [address] END OF REPORT
== END 2018-05-25 14:09 | disposition home or self-care (01) | DRG 682 ==
LOC: D.ER 09:44 → D.EDHOLD 12:55 → D.M2 13:58
PROVIDERS: Family Medicine; ADMIT Internal Medicine Nephrology
DX: N17.9 Acute kidney failure, unspecified (principal); G93.41 Metabolic encephalopathy; E43 Unspecified severe protein-calorie malnutrition; D61.818 Other pancytopenia; F17.213 Nicotine dependence, cigarettes, with withdrawal; E83.42 Hypomagnesemia; F10.10 Alcohol abuse, uncomplicated; D53.9 Nutritional anemia, unspecified; Z68.20 Body mass index [BMI] 20.0-20.9, adult

== ENCOUNTER 2018-06-06 15:21 | Observation (INO) | payer MEDICAID ==
[~2018-06-06] VITALS: Ht 185.4 cm; Wt 57.6 kg
--- NOTE | 2018-06-06 15:56 | NUR ---
FSBS 100
[2018-06-06 16:41] LABS: BASOPHILS 0.2 % (0-2); EOSINOPHILS 0.2 % (0-7); HEMATOCRIT 31.6 % (42.0-54.0); HEMOGLOBIN 10.8 g/dL (13.5-17.5); IMMATURE GRANULOCYTES 0.2 % (0-5); LYMPHOCYTES 31.3 % (15-50); MCH 36.6 pg (26.0-34.0); MCHC 34.2 g/dL (31.0-37.0); MCV 107.1 fL (80.0-100.0); MEAN PLATELET VOLUME 7.9 fL (7.4-10.4); MONOCYTES 4.7 % (2-11); NEUTROPHILS 63.4 % (40-80); PLATELET COUNT 52 10x3/uL (130-400); RBC 2.95 10x6/uL (4.20-6.10); RDW 13.5 % (11.5-14.5); WBC 4.7 10x3/uL (4.8-10.8)
[2018-06-06 16:58] LABS: ALBUMIN 3.6 g/dL (3.4-5.0); ANION GAP 17.9 mmol/L (8-16); BILIRUBIN - TOTAL 0.38 mg/dL (0.2-1.3); CALCIUM 8.3 mg/dL (8.5-10.1); CREATININE - SERUM 3.2 mg/dL (0.6-1.3); POTASSIUM - SERUM 3.9 mmol/L (3.5-5.1); PROTEIN - SERUM 6.9 g/dL (6.4-8.2)
[2018-06-06 17:00] LABS: PLATELET ESTIMATE DECREASED
--- NOTE | 2018-06-06 18:41 | NUR ---
PT LAYING IN BED. RESPIRATIONS ARE EVEN AND UNLABORED. NO DISTRESS IS NOTED AT THIS TIME. FAMILY MEMBER AT BEDSIDE. SIDERAILS UP, BED IN LOWEST POSITION. VSS. COLOR WNL FOR RACE. WILL CONTINUE TO MONITOR PATIENT.
[2018-06-06 18:42] VITALS: BP 93/54
[2018-06-06 18:48] LABS: UDS - AMPHET NEGATIVE QUAL (NEGATIVE); UDS - BARB NEGATIVE QUAL (NEGATIVE); UDS - BENZO POSITIVE QUAL (NEGATIVE); UDS - COCAINE NEGATIVE QUAL (NEGATIVE); UDS - OPIATE NEGATIVE QUAL (NEGATIVE); UDS - PCP NEGATIVE QUAL (NEGATIVE); UDS - THC NEGATIVE QUAL (NEGATIVE)
[2018-06-06 19:19] LABS: APPEARANCE CLOUDY (CLEAR); BILIRUBIN 1+ (NEGATIVE); COLOR DK YELLOW (YELLOW); GLUCOSE NEGATIVE (NEGATIVE); KETONE LARGE mg/dL (NEGATIVE); NITRITE NEGATIVE (NEGATIVE); PROTEIN NEGATIVE (NEGATIVE)
[2018-06-06 19:20] LABS: BACTERIA FEW /hpf (NONE SEEN); EPITHELIAL CELLS 0-5 /hpf (0-5); RED CELLS - URINE 0-5 /hpf (0-5); WHITE CELLS - URINE 0-5 /hpf (0-5)
--- NOTE | 2018-06-06 21:19 | NUR ---
PT LAYING IN BED. RESPIRATIOSN ARE EVEN AND UNLABORED. PT ATTEMPTING TO USE URINAL AT THIS TIME. NO DISTRESS NOTED. PT PROVIDED WITH WATER TO DRINK. WILL CONTINUE TO MONITOR. SPOKE WITH SHIV, AND UPDATED ON PT STATUS.
[2018-06-06 21:28] LABS: CKMB 1.3 U/L (0.0-3.6)
[2018-06-06 21:29] LABS: TROPONIN-I < 0.017 ng/mL (0.000-0.060)
[2018-06-06 22:14] VITALS: BP 118/78
--- NOTE | 2018-06-06 22:17 | NUR ---
PT IS ORIENTED TO PERSON AND TIME ONLY AT THIS TIME. NO DISTRESS IS NOTED. PT LAYING IN BED. ASSISTED PT WITH GETTING CELL PHONE FOR USE. PT XRAY PERFORMED IN ED ROOM AT THIS TIME. WILL CONTINUE TO MONITOR. PT DENIES FURTHER NEEDS.
--- NOTE | 2018-06-06 23:45 | NUR ---
ADMIT TO UNIT TO ROOM 2128 FROM ER. PT ALERT/ ORIENTED TO SELF AND CAN ANSWER BASIC NEEDS QUESTIONS APPROPRIATELY. ADMISSION ASSESSMENT AND HISTORY INITIATED. PT IS A POOR HISTORIAN AND NOT ACCOMPANIED BY FAMILY. HE RELAYS ONLY MINIMAL INFORMATION REGARDING HIS DRINKING/ALCOHOL USAGE. ADMITS TO DRINKING BEER DAILY. DENIES ANY OTHER TYPE OF DRUG USAGE. DENIES TAKING ANY PRESCRIPTION DRUGS AT THIS TIME. PT IS AND WAS PRESENT IN THE ER BUT WENT HOME BEFORE COMING TO THE FLOOR. PLAN OF CARE INITIATED. BANANA BAG AT 125ML/HR INFUSING TO LFA. WILL MONITOR FOR S/S OF WITHDRAWAL.
[2018-06-06 23:52] VITALS: BP 104/43
[2018-06-07 03:15] VITALS: BP 104/43; BMI 17.1
[2018-06-07 03:45] VITALS: BP 116/75
--- NOTE | 2018-06-07 06:00 | NUR ---
PT ACCIDENTALLY PULLED OUT HIS IV. RESITED 20G TO LFA AND BANANA BAG @ 125ML/HR RESUMMED.
--- NOTE | 2018-06-07 08:18 | NUR ---
PT'S CALLS AND STATES PT FELL FOUR TIMES THURSDAY AND HAS HAD SLURRED SPEECH AND SHE WAS HAVING A HARD TIME PICKING HIM UP AND HE WAS CURSING AT HER AND THE [facility] CAME AND PICKED HIM UP. SHE STATES PT "CAN EITHER GET WELL OR AT THE HOSPITAL." SHE STATES SHE HAD TO CALL THE [facility] TO COME PICK HIM UP YESTERDAY AFTER CONGREGATION AND SHE HOPES SHE "DIDN'T MAKE A MISTAKE." SHE ALSO STATES PT IS NEEDING A "SENIOR CARE/REHAB BECAUSE HE HAS A HARD TIME WALKING WITH HIS ANKLE." SHE ALSO STATES "MAKE SURE PT BRUSHES HIS TEETH HE HASN'T BRUSHED THEM SINCE THURSDAY WHEN HE WENT TO THE DOCTOR LAST. HE'S JUST BEEN TO WEAK TO GET OUT OF BED AND DO ANYTHING." SHE ALSO STATES SHE WILL BE UP HERE LATER.
[2018-06-07 08:44] VITALS: BP 118/75
--- NOTE | 2018-06-07 09:00 | NUR ---
PT WANTING TYLENOL FOR RIGHT FOOT PAIN AND STATES HE TAKES HYDROCODONE AT HOME. PAGEReilly LEMUS.
--- NOTE | 2018-06-07 09:30 | NUR ---
PT YELLING AT ME BECAUSE I HAVE NOT GIVEN HIM TYLENOL. I STATED TO HIM I CAN NOT GET YOU TYLENOL WITHOUT A DOCTOR'S ORDER. I AM STILL WAITING FOR THE DOCTOR TO CALL ME BACK. PT CONTINUE TO YELL AND CURSE AT ME. I STATED TO PT "HE CAN NOT TALK TO ME IN THAT WAY." PAGED SUDHAKAR TOP CASE ASSEMBLER AGAIN.
--- NOTE | 2018-06-07 10:03 | NUR ---
SUDHAKAR LEMUS STATES TO ORDER TYLENOL.
--- NOTE | 2018-06-07 11:30 | NUR ---
PT STATES HE "APOLOGIZES FOR BEING MEAN AND YELLING" AT ME EARLIER. PT STATES "I WAS IN PAIN, MY FOOT WAS HURTING."
[2018-06-07 12:02] VITALS: BP 121/72
[2018-06-07 13:02] LABS: BASOPHILS 0.2 % (0-2); EOSINOPHILS 0.2 % (0-7); HEMATOCRIT 29.8 % (42.0-54.0); HEMOGLOBIN 10.2 g/dL (13.5-17.5); MCH 36.4 pg (26.0-34.0); MCHC 34.2 g/dL (31.0-37.0); MCV 106.4 fL (80.0-100.0); MEAN PLATELET VOLUME 9.7 fL (7.4-10.4); MONOCYTES 6.8 % (2-11); NEUTROPHILS 64.8 % (40-80); WBC 4.1 10x3/uL (4.8-10.8)
[2018-06-07 13:04] LABS: PLATELET COUNT 70 10x3/uL (130-400)
[2018-06-07 13:07] LABS: ALBUMIN 3.1 g/dL (3.4-5.0); ANION GAP 11.3 mmol/L (8-16); BILIRUBIN - TOTAL 0.31 mg/dL (0.2-1.3); PROTEIN - SERUM 6.1 g/dL (6.4-8.2)
[2018-06-07 13:12] LABS: CREATININE - SERUM 2.3 mg/dL (0.6-1.3); POTASSIUM - SERUM 3.3 mmol/L (3.5-5.1)
[2018-06-07 13:32] VITALS: Ht 185.4 cm; Wt 57.6 kg
--- NOTE | 2018-06-07 13:34 | NUR ---
REPORTED TO ME THAT PT HAD A WOMAN VISTOR THAT LEFT BECAUSE SHE STATES PT WAS YELLING AND BEING MEAN TO HER.
--- NOTE | 2018-06-07 15:51 | NUR ---
REPORTED TO ME THIS AM THAT ER STATED THAT [facility] REPORTED PT'S HOME AND TO APS. SPOKE WITH [facility] CASE MANAGEMENT AND HE STATES APS WILL HAVE TO CONTACT US AND IF THEY DON'T BEFORE PT IS DC'D THERE IS NOTHING THAT WE CAN DO.
[2018-06-07 16:01] VITALS: BP 98/66
[2018-06-07 20:00] VITALS: BP 125/75
[2018-06-08] VITALS: BP 105/63
--- NOTE | 2018-06-08 03:00 | NUR ---
LYING IN BED WITH EYES CLOSED, CALL LIGHT IN REACH. WILL CONTINUE WITH PLAN OF CARE.
--- NOTE | 2018-06-08 03:44 | NUR ---
RESTING WITH EYES CLOSED, RESPERATIONS EVEN, NO S/S DSITRESS NOTED.
[2018-06-08 04:00] VITALS: BP 117/69
[2018-06-08 06:54] LABS: BASOPHILS 0.3 % (0-2); EOSINOPHILS 0.6 % (0-7); HEMATOCRIT 28.2 % (42.0-54.0); HEMOGLOBIN 9.7 g/dL (13.5-17.5); LYMPHOCYTES 36.2 % (15-50); MCH 36.2 pg (26.0-34.0); MCHC 34.4 g/dL (31.0-37.0); MCV 105.2 fL (80.0-100.0); MEAN PLATELET VOLUME 9.2 fL (7.4-10.4); MONOCYTES 8.5 % (2-11); NEUTROPHILS 54.4 % (40-80); PLATELET COUNT 66 10x3/uL (130-400); RBC 2.68 10x6/uL (4.20-6.10); RDW 13.1 % (11.5-14.5); WBC 3.5 10x3/uL (4.8-10.8)
[2018-06-08 07:01] LABS: ALBUMIN 2.9 g/dL (3.4-5.0); BILIRUBIN - TOTAL 0.39 mg/dL (0.2-1.3); CALCIUM 7.6 mg/dL (8.5-10.1); PROTEIN - SERUM 5.8 g/dL (6.4-8.2)
[2018-06-08 07:06] LABS: CREATININE - SERUM 1.7 mg/dL (0.6-1.3)
[2018-06-08 08:58] LABS: PLATELET ESTIMATE DECREASED
[2018-06-08 09:01] LABS: ANISOCYTOSIS OCC
[2018-06-08 09:47] VITALS: BP 116/73
--- NOTE | 2018-06-08 10:10 | NUR ---
Rehab Note- Acute Inpatient Rehab prescreen order received. The patient has Medicaid and does not have acute inpatient rehab benefits. Thank you for this referral! Snow Schultz RN Clinical Liaison, [facility] Rehab
--- NOTE | 2018-06-08 12:10 | NUR ---
PT'S AT BEDSIDE VISITING PT.
--- NOTE | 2018-06-08 13:34 | MORECARE ---
CASE MANAGEMENT DISCHARGE SUMMARY PATIENT: HARRIET PEPE UNIT: [id number] ADM DATE: 06/06/18 AGE: 62 : 53 SEX: M ROOM/BED: D.2128 AUTHOR: FORREST CARVAJAL PHYSICIAN: REFERRING PHYSICIAN: DORENE CONDE MD DATE OF SERVICE: 06/08/18 Discharge Plan Patient Name: HARRIET PEPE [facility] [facility] 1955 Planned Disposition: Home Anticipated Discharge Date: 06/08/18 Discharge Date: Expected LOS: 2 Initial Reviewer: [id number] Initial Review Date: 06/08/2018 Generated: 06/08/18 2:34 pm DCPIA - Discharge Planning Initial Assessment Updated by [id number]: Josh Mcdermott on 06/08/18 1:30 pm * Is the patient Alert and Oriented? Yes * How many steps to enter\exit or inside your home? NONE * PCP NONE GOES TO [facility] * [facility] [address] * Preadmission Environment Home with Family * ADLs Independent * Equipment None * Other Equipment NO MEDICAL EQUIPMENT PROVIDER PREFERENCE * List name and contact numbers for known caregivers / representatives who currently or will assist patient after discharge: LUIS FELIPE PEPE, SPOUSE, * Verbal permission to speak to the caregivers and representatives has been obtained from the patient. N/A * Community resources currently utilized None * Please name any agencies selected above. NONE * Additional services required to return to the preadmission environment? No * Can the patient safely return to the preadmission environment? Yes * Has this patient been hospitalized within the prior 30 days at any hospital? Yes Patient Name: HARRIET PEPE Page 77884 at 1334 All edits/amendments must be made on the electronic document DICTATION DATE: 06/08/181333 CABLE TOWER OPERATOR: FREDERIC 06/08/181333 RPT#: [id number] DC DATE: STATUS: ADM IN [facility] [address] [place] [address] END OF REPORT
--- NOTE | 2018-06-08 13:48 | MORECARE ---
CASE MANAGEMENT DISCHARGE SUMMARY PATIENT: HARRIET PEPE UNIT: [id number] ADM DATE: 06/06/18 AGE: 62 : 53 SEX: M ROOM/BED: D.5025 AUTHOR: FORREST CARVAJAL PHYSICIAN: REFERRING PHYSICIAN: DORENE CONDE MD DATE OF SERVICE: 06/08/18 Discharge Plan Patient Name: HARRIET PEPE Facility: [facility]:[place] : 1955 Planned Disposition: Home Anticipated Discharge Date: 06/08/18 Discharge Date: Expected LOS: 2 Initial Reviewer: [id number] Initial Review Date: 06/08/2018 Generated: 06/08/18 2:47 pm Comments DCP- Discharge Planning Updated by [id number]: Josh Mcdermott on 06/08/18 12:[address] Patient Name: HARRIET PEPE Admission Status: ER Accout number: [id number] Admission Date: 06-06-2018 : 1955 Admission Diagnosis: Attending: DORENE CONDE Current LOS: 2 Anticipated DC Date: 06-08-2018 Planned Disposition: Home Primary Insurance: MEDICAID [place] Discharge Planning Comments: CM RECEIVED ORDER FOR INPATIENT REHAB PRESCREENING. CM MET WITH PT IN ROOM TO DISCUSS DISCHARGE PLANNING AND NEEDS. PT REPORTS LIVING AT HOME INDEPENDENTLY WITH HIS . PT HAS NO MEDICAL EQUIPMENT AND NO OUTSIDE SERVICES ASSISTING IN THE HOME. CM DISCUSSED AVAILABILITY OF HOME HEALTH, REHAB SERVICES AND MEDICAL EQUIPMENT. PT HAS NO INPATIENT OR LONG-TERM REHAB BENEFITS WITH MEDICAID. PT HAS NO PRIMARY CARE DOCTOR TO FOLLOW HOME HEALTH ORDERS. PT REPORTS HE HAS BEEN GOING TO A WALK IN CLINIC FOR CARE PRIOR TO GETTING SICK; PT STATES HIS SPOUSE IS WORKING ON GETTING NEW PRIMARY CARE DOCTOR FOR PT. PT STATES HE WILL HAVE MEDICARE ON JUNE 18, 2018 AND WILL HAVE REHAB BENEFIT THEN. PT REPORTS HE HAS STOPPED DRINKING ALL ALCOHOL AND HAS NONE IN HIS HOME. PT DENIES TAKING ANY PRESCRIPTION OR STREET DRUGS OTHER THAN HYDROCODONE AND TYLENOL NEEDED ONLY. PT DOES NOT KNOW WHY HE WOULD BE POSITIVE FOR BENZODIAZAPINES. PT WILL NOT GO TO NURSING FACILITY FOR MANGLE CATCHER CARE. PT DOES NOT WANT TO GIVE HIS CHECK TO THE LONG-TERM FOR MANGLE CATCHER CARE. PT REPORTS PLAN TO RETURN HOME WITH , DENIES DISCHARGE NEEDS AND REPORTS HIS WILL PICK HIM UP FOR DISCHARGE HOME. PT IS NOT ATTENDING SUPPORT GROUP MEETINGS FOR ALCOHOL RECOVERY, REPORTING HE HAD STOPPED DRINKING WITH ASSISTANCE OF HIS AND NEEDS NOTHING MORE. PT HAS NO REHAB BENEFIT WITH MEDICAID. PT HAS NO PRIMARY CARE DOCTOR TO FOLLOW HOME HEALTH ORDERS. PT REFUSED MANGLE CATCHER CARE PLACEMENT IN LONG-TERM. PT PLANS TO DISCHARGE HOME WITH SPOUSE, DENIES DISCHARGE NEEDS AT THIS TIME. Steward/Stewardess Second: Josh Mcdermott DCPIA - Discharge Planning Initial Assessment Updated by [email or web address]: Josh Mcdermott on 06/08/18 1:30 pm * Is the patient Alert and Oriented? Yes * How many steps to enter\exit or inside your home? NONE * PCP NONE GOES TO [facility] * [facility]acy [facility] [address] * Preadmission Environment Home with Family * ADLs Independent * Equipment None * Other Equipment NO MEDICAL EQUIPMENT PROVIDER PREFERENCE * List name and contact numbers for known caregivers / representatives who currently or will assist patient after discharge: LUIS FELIPE PEPE, SPOUSE, * Verbal permission to speak to the caregivers and representatives has been obtained from the patient. N/A * Community resources currently utilized None * Please name any agencies selected above. NONE * Additional services required to return to the preadmission environment? No * Can the patient safely return to the preadmission environment? Yes * Has this patient been hospitalized within the prior 30 days at any hospital? Yes Last DP export: 06/08/18 12:34 p Patient Name: HARRIET PEPE Page [phone] at 1348 All edits/amendments must be made on the electronic document DICTATION DATE: 06/08/18 1347 RESEARCH & ANALYTICS MANAGER: FREDERIC 06/08/18 1347 RPT#: [id number] DC DATE: STATUS: ADM IN [facility] [address] [place] [address] END OF REPORT
--- NOTE | 2018-06-08 15:17 | NUR ---
PT DC HOME. LEFT WRIST 20G IV DC'D WITH CATH INTACT.
--- NOTE | 2018-06-08 17:53 | NUR ---
PT TAKEN DOWN VIA WC BY THIS NURSE ACCOMAPNIED BY .
--- NOTE | 2018-06-09 13:08 | MORECARE ---
CASE MANAGEMENT DISCHARGE SUMMARY PATIENT: HARRIET PEPE UNIT: [id number] ADM DATE: 06/06/18 AGE: 62 : 53 SEX: M ROOM/BED: D.1229 AUTHOR: FORREST CARVAJAL PHYSICIAN: REFERRING PHYSICIAN: DORENE CONDE MD DATE OF SERVICE: 06/09/18 Discharge Plan Patient Name: HARRIET PEPE Facility: [facility]:[place] : 1955 Planned Disposition: Home Anticipated Discharge Date: 06/08/18 Discharge Date: 06/08/2018 Expected LOS: 2 Initial Reviewer: [email or web address] Initial Review Date: 06/08/2018 Generated: 06/09/18 2:08 pm Comments DCP- Discharge Planning Updated by [email or web address]: Josh Mcdermott on 06/08/18 12:[address] Patient Name: HARRIET PEPE Admission Status: ER Accout number: [id number] Admission Date: 06-06-2018 : 1955 Admission Diagnosis: Attending: DORENE CONDE Current LOS: 2 Anticipated DC Date: 06-08-2018 Planned Disposition: Home Primary Insurance: MEDICAID [place] Discharge Planning Comments: CM RECEIVED ORDER FOR INPATIENT REHAB PRESCREENING. CM MET WITH PT IN ROOM TO DISCUSS DISCHARGE PLANNING AND NEEDS. PT REPORTS LIVING AT HOME INDEPENDENTLY WITH HIS . PT HAS NO MEDICAL EQUIPMENT AND NO OUTSIDE SERVICES ASSISTING IN THE HOME. CM DISCUSSED AVAILABILITY OF HOME HEALTH, REHAB SERVICES AND MEDICAL EQUIPMENT. PT HAS NO INPATIENT OR LONG TERM REHAB BENEFITS WITH MEDICAID. PT HAS NO PRIMARY CARE DOCTOR TO FOLLOW HOME HEALTH ORDERS. PT REPORTS HE HAS BEEN GOING TO A WALK IN CLINIC FOR CARE PRIOR TO GETTING SICK; PT STATES HIS SPOUSE IS WORKING ON GETTING NEW PRIMARY CARE DOCTOR FOR PT. PT STATES HE WILL HAVE MEDICARE ON JUNE 18, 2018 AND WILL HAVE REHAB BENEFIT THEN. PT REPORTS HE HAS STOPPED DRINKING ALL ALCOHOL AND HAS NONE IN HIS HOME. PT DENIES TAKING ANY PRESCRIPTION OR STREET DRUGS OTHER THAN HYDROCODONE AND TYLENOL NEEDED ONLY. PT DOES NOT KNOW WHY HE WOULD BE POSITIVE FOR BENZODIAZAPINES. PT WILL NOT GO TO NURSING FACILITY FOR SNF CARE. PT DOES NOT WANT TO GIVE HIS CHECK TO THE CARE HOME FOR SNF CARE. PT REPORTS PLAN TO RETURN HOME WITH , DENIES DISCHARGE NEEDS AND REPORTS HIS WILL PICK HIM UP FOR DISCHARGE HOME. PT IS NOT ATTENDING SUPPORT GROUP MEETINGS FOR ALCOHOL RECOVERY, REPORTING HE HAD STOPPED DRINKING WITH ASSISTANCE OF HIS AND NEEDS NOTHING MORE. PT HAS NO REHAB BENEFIT WITH MEDICAID. PT HAS NO PRIMARY CARE DOCTOR TO FOLLOW HOME HEALTH ORDERS. PT REFUSED SNF CARE PLACEMENT IN CARE HOME. PT PLANS TO DISCHARGE HOME WITH SPOUSE, DENIES DISCHARGE NEEDS AT THIS TIME. Hot Box Spotter: Josh Mcdermott DCPIA - Discharge Planning Initial Assessment Updated by [email or web address]: Josh Mcdermott on 06/08/18 1:30 pm * Is the patient Alert and Oriented? Yes * How many steps to enter\exit or inside your home? NONE * PCP NONE GOES TO [facility] * Pharmacy [facility] ON [address] * Preadmission Environment Home with Family * ADLs Independent * Equipment None * Other Equipment NO MEDICAL EQUIPMENT PROVIDER PREFERENCE * List name and contact numbers for known caregivers / representatives who currently or will assist patient after discharge: LUIS FELIPE PEPE, SPOUSE, * Verbal permission to speak to the caregivers and representatives has been obtained from the patient. N/A * Community resources currently utilized None * Please name any agencies selected above. NONE * Additional services required to return to the preadmission environment? No * Can the patient safely return to the preadmission environment? Yes * Has this patient been hospitalized within the prior 30 days at any hospital? Yes External Providers External Provider: OTHER-OTHER Next Contact Date: 06/09/2018 Service Request Date: Service Type: Resolution: Reviewer: Comments: Last DP export: 06/08/18 12:47 p Patient Name: HARRIET PEPE Page 10243 at 1308 All edits/amendments must be made on the electronic document DICTATION DATE: 06/09/18 1308 REGISTERED MEDICAL ASSISTANT: FREDERIC 06/09/18 1308 RPT#: [id number] MA DATE:06/08/18 STATUS: DIS IN [facility] [address] [place] [address] END OF REPORT
--- NOTE | 2018-06-09 13:16 | MORECARE ---
CASE MANAGEMENT DISCHARGE SUMMARY PATIENT: HARRIET PEPE UNIT: [id number] ADM DATE: 06/06/18 AGE: 62 : 53 SEX: M ROOM/BED: D.2939 AUTHOR: WEIDOC PHYSICIAN: REFERRING PHYSICIAN: DORENE CONDE MD DATE OF SERVICE: 06/09/18 Discharge Plan Patient Name: HARRIET PEPE Facility: [facility]:[place] : 1955 Planned Disposition: Home Anticipated Discharge Date: 06/08/18 Discharge Date: 06/08/2018 Expected LOS: 2 Initial Reviewer: [email or web address] Initial Review Date: 06/08/2018 Generated: 06/09/18 2:16 pm Comments DCP- Discharge Planning Updated by [email or web address]: Josh Mcdermott on 06/09/18 12:[address] Patient Name: HARRIET PEPE Encounter No: [id number] : 1955 Primary Insurance: MEDICAID [place] Anticipated DC Date: 06-08-2018 Planned Disposition: Home DCP follow-up note: CM RECEIVED PHONE CALL FROM [facility], , WHO HAS RECEIVED REFERRAL DUE TO SELF NEGLECT / ALCOHOLISM WITH ALLEGATION PT IS DRINKING RUBBING ALCOHOL. CM EXPLAINED THAT PT HAD DISCHARGED HOME YESTERDAY. MUNIRA WILL FOLLOW UP WITH PT AT HOME AND ASKED FOR ADMISSION RECORDS TO BE FAXED. MARC FAXED REQUESTED INFORMATION TO [facility] FOR INVESTIGATION TO [phone]. CLIF Thornton DCP- Discharge Planning Updated by [email or web address]: Josh Mcdermott on 06/08/18 12:[address] Patient Name: HARRIET PEPE Admission Status: ER Accout number: [id number] Admission Date: 06-06-2018 : 1955 Admission Diagnosis: Attending: DORENE CONDE Current LOS: 2 Anticipated DC Date: 06-08-2018 Planned Disposition: Home Primary Insurance: MEDICAID [place] Discharge Planning Comments: CM RECEIVED ORDER FOR INPATIENT REHAB PRESCREENING. CM MET WITH PT IN ROOM TO DISCUSS DISCHARGE PLANNING AND NEEDS. PT REPORTS LIVING AT HOME INDEPENDENTLY WITH HIS . PT HAS NO MEDICAL EQUIPMENT AND NO OUTSIDE SERVICES ASSISTING IN THE HOME. CM DISCUSSED AVAILABILITY OF HOME HEALTH, REHAB SERVICES AND MEDICAL EQUIPMENT. PT HAS NO INPATIENT OR HALFWAY REHAB BENEFITS WITH MEDICAID. PT HAS NO PRIMARY CARE DOCTOR TO FOLLOW HOME HEALTH ORDERS. PT REPORTS HE HAS BEEN GOING TO A WALK IN CLINIC FOR CARE PRIOR TO GETTING SICK; PT STATES HIS SPOUSE IS WORKING ON GETTING NEW PRIMARY CARE DOCTOR FOR PT. PT STATES HE WILL HAVE MEDICARE ON JUNE 18, 2018 AND WILL HAVE REHAB BENEFIT THEN. PT REPORTS HE HAS STOPPED DRINKING ALL ALCOHOL AND HAS NONE IN HIS HOME. PT DENIES TAKING ANY PRESCRIPTION OR STREET DRUGS OTHER THAN HYDROCODONE AND TYLENOL NEEDED ONLY. PT DOES NOT KNOW WHY HE WOULD BE POSITIVE FOR BENZODIAZAPINES. PT WILL NOT GO TO NURSING FACILITY FOR [facility] CARE. PT DOES NOT WANT TO GIVE HIS CHECK TO THE GROUP HOME FOR [facility] CARE. PT REPORTS PLAN TO RETURN HOME WITH , DENIES DISCHARGE NEEDS AND REPORTS HIS WILL PICK HIM UP FOR DISCHARGE HOME. PT IS NOT ATTENDING SUPPORT GROUP MEETINGS FOR ALCOHOL RECOVERY, REPORTING HE HAD STOPPED DRINKING WITH ASSISTANCE OF HIS AND NEEDS NOTHING MORE. PT HAS NO REHAB BENEFIT WITH MEDICAID. PT HAS NO PRIMARY CARE DOCTOR TO FOLLOW HOME HEALTH ORDERS. PT REFUSED PERFORMANCE ARCHITECT CARE PLACEMENT IN GROUP HOME. PT PLANS TO DISCHARGE HOME WITH SPOUSE, DENIES DISCHARGE NEEDS AT THIS TIME. [id number] Analyst: Josh Mcdermott DCPIA - Discharge Planning Initial Assessment Updated by [email or web address]: Josh Mcdermott on 06/08/18 1:30 pm * Is the patient Alert and Oriented? Yes * How many steps to enter\exit or inside your home? NONE * PCP NONE GOES TO [facility] * Pharmacy [facility] ON [address] * Preadmission Environment Home with Family * ADLs Independent * Equipment None * Other Equipment NO MEDICAL EQUIPMENT PROVIDER PREFERENCE * List name and contact numbers for known caregivers / representatives who currently or will assist patient after discharge: LUIS FELIPE PEPE, SPOUSE, * Verbal permission to speak to the caregivers and representatives has been obtained from the patient. N/A * Community resources currently utilized None * Please name any agencies selected above. NONE * Additional services required to return to the preadmission environment? No * Can the patient safely return to the preadmission environment? Yes * Has this patient been hospitalized within the prior 30 days at any hospital? Yes Last DP export: 06/09/18 12:08 p Patient Name: HARRIET PEPE Page 46051 at 1316 All edits/amendments must be made on the electronic document DICTATION DATE: 06/09/18 1316 PANTS PRESSER AUTOMATIC: FREDERIC 06/09/18 1316 RPT#: [id number] DC DATE:06/08/18 STATUS: DIS IN [facility] [address] [place] [address] END OF REPORT
== END 2018-06-08 17:54 | disposition home or self-care (01) ==
LOC: D.ER 15:21 → D.M2 22:51 → OBSVTIME 22:51 → D.M2 22:51
PROVIDERS: Family Medicine; Family Medicine Adult Medicine; ADMIT Internal Medicine Nephrology
DX: N17.9 Acute kidney failure, unspecified (principal); E86.0 Dehydration; Z91.81 History of falling; D61.818 Other pancytopenia; E43 Unspecified severe protein-calorie malnutrition; Z68.1 Body mass index [BMI] 19.9 or less, adult

== ENCOUNTER → 2019-01-25 16:40 | Outpatient (CLI) | payer MEDICARE, BC ==
[2018-06-07 13:32] VITALS: BMI 15.1
[~2019-01-25 16:40] MED LIST changes: +ALBUTEROL2.5 MG/3 M UPD; +ATIVAN1 MG PO; +COLACE100 MG PO; +ELIQUIS2.5 MG PO; +LISINOPRIL10 MG PO; +MAG-OX 400 MG400 MG PO; +NICODERM C1 PATCH .1 TRANSDERM; +NORCO-7.5 PO; +Nicoderm [PBKC] TRANSDERM; +PROTONIX40 MG PO
== END | disposition home or self-care (01) ==
LOC: D.LABREF 16:40
PROVIDERS: ATTEND Orthopaedic Surgery
DX: M16.11 Unilateral primary osteoarthritis, right hip (principal)

== ENCOUNTER 2019-01-27 16:10 | Inpatient (IN) | payer MEDICARE, BC ==
[~2019-01-27] VITALS: Ht 185.4 cm; Wt 63.2 kg
[~2019-01-27 16:10] MED LIST changes: -ALBUTEROL2.5 MG/3 M UPD; -ATIVAN1 MG PO; -COLACE100 MG PO; -ELIQUIS2.5 MG PO; -LISINOPRIL10 MG PO; -MAG-OX 400 MG400 MG PO; -NICODERM C1 PATCH .1 TRANSDERM; -NORCO-7.5 PO; -Nicoderm [PBKC] TRANSDERM; -PROTONIX40 MG PO
[2019-02-08] MEDS ORDERED: LISINOPRIL10 MG PO (14:23)
[2019-02-09 12:22] LABS: BASOPHILS 0.2 % (0-2); EOSINOPHILS 0.4 % (0-7); HEMATOCRIT 36.3 % (42.0-54.0); HEMOGLOBIN 12.3 g/dL (13.5-17.5); IMMATURE GRANULOCYTES 0.2 % (0-5); LYMPHOCYTES 26.4 % (15-50); MCH 38.1 pg (26.0-34.0); MCHC 33.9 g/dL (31.0-37.0); MCV 112.4 fL (80.0-100.0); MEAN PLATELET VOLUME 9.1 fL (7.4-10.4); MONOCYTES 10.9 % (2-11); NEUTROPHILS 61.9 % (40-80); RBC 3.23 10x6/uL (4.20-6.10); RDW 12.1 % (11.5-14.5); WBC 5.2 10x3/uL (4.8-10.8)
[2019-02-09 12:26] LABS: PLATELET COUNT 86 10x3/uL (130-400)
[2019-02-09 12:32] LABS: CALC OSMOLALITY 274 mosm/kg (275-300); CALCIUM 9.1 mg/dL (8.5-10.1); CARBON DIOXIDE 27.3 mmol/L (21.0-32.0); CHLORIDE - SERUM 100 mmol/L (98-107); CREATININE - SERUM 0.9 mg/dL (0.6-1.3); GLUCOSE 85 mg/dL (74-106); POTASSIUM - SERUM 4.6 mmol/L (3.5-5.1); SODIUM 137 mmol/L (136-145); UREA NITROGEN 17 mg/dL (7-18); eGFR NON AFRICAN AMERICAN 90 mL/min (90-120)
[2019-02-09 12:49] LABS: APTT 28.6 SECONDS (22.8-39.4); PROTIME 12.7 SECONDS (11.6-15.0)
[2019-02-09 13:09] LABS: APPEARANCE CLEAR (CLEAR); BACTERIA FEW /hpf (NEGATIVE); BILIRUBIN NEGATIVE (NEGATIVE); COLOR YELLOW (YELLOW); EPITHELIAL CELLS 0-5 /hpf (0-5); GLUCOSE NEGATIVE (NEGATIVE); KETONE NEGATIVE (NEGATIVE); MUCUS <1+ /lpf (NONE SEEN); NITRITE NEGATIVE (NEGATIVE); PROTEIN TRACE mg/dL (NEGATIVE); RED CELLS - URINE RARE /hpf (0-5); SPECIFIC GRAVITY 1.015 (1.005-1.020); WHITE CELLS - URINE 0-5 /hpf (NEGATIVE)
[2019-02-14 12:08] VITALS: BP 143/99; BMI 18.5
--- NOTE | 2019-02-14 14:55 | NUR ---
RIGHT LEG WASHED FROM HIP TO TOES CIRCUMFERENCIALLY WITH HIBICLEANSE AND ALCOHOL PRIOR TO CHLORAPREP. PLASMA BLADE SET TO 09/25 REM PAD LOT#:[id number] EXP: 09/23/2020 TRAFFIC IN ROOM KEPT TO MINIMUM
[2019-02-14 16:36] VITALS: BP 112/65
--- NOTE | 2019-02-14 16:54 | NUR ---
RECEIVED PATIENT FROM RECOVERY, RESTING COMFORTABLY. NO C/O PAIN. NO S/S OF ACUTE DISTRESS NOTED. RIGHT TOTAL HIP, DRESSING TO HIP C/D/I. FAMILY AT BEDSIDE. DENIES ANY NEEDS AT THIS TIME. CALL LIGHT IN REACH. WILL CONTINUE TO MONITOR.
[2019-02-14 17:30] VITALS: BP 116/73; BMI 17.1
--- NOTE | 2019-02-14 18:13 | NUR ---
RESTING IN BED, NO C/O PAIN. NO S/S OF ACUTE DISTRESS NOTED. CALL LIGHT IN REACH. DENIES ANY NEEDS AT THIS TIME. WILL CONTINUE TO MONITOR.
[2019-02-14 22:13] VITALS: BP 109/71
[2019-02-15 01:21] VITALS: BP 94/70
--- NOTE | 2019-02-15 03:52 | NUR ---
Patient alert and orented able to voice needs and wants to staff, O2 at 3l via n/c in place. IV to left FA with ns. IV intact and patien, no redness to site no c/o pain,at IV site. Telemtry in place 60sr. alarm on bed call light and water in reach. Bed low. checked often for needs and safety.
[2019-02-15 05:34] VITALS: BP 106/72
[2019-02-15 07:03] LABS: BASOPHILS 0 % (0-2); EOSINOPHILS 0 % (0-7); HEMOGLOBIN 7.9 g/dL (13.5-17.5); IMMATURE GRANULOCYTES 0.6 % (0-5); LYMPHOCYTES 12.3 % (15-50); MCH 37.6 pg (26.0-34.0); MCHC 32.9 g/dL (31.0-37.0); MCV 114.3 fL (80.0-100.0); MEAN PLATELET VOLUME 9.6 fL (7.4-10.4); MONOCYTES 14.7 % (2-11); NEUTROPHILS 72.4 % (40-80); PLATELET COUNT 84 10x3/uL (130-400); RDW 11.6 % (11.5-14.5); WBC 5.4 10x3/uL (4.8-10.8)
--- NOTE | 2019-02-15 07:08 | NUR ---
PT IS RESTING IN BED WITH EYES CLOSED. RESPIRATIONS ARE EVEN AND UNLABORED. PT IS EASILY AROUSED WITH VERBAL STIMULATION. PT IS AAO X 4 UPON AROUSAL. DRESSING TO RIGHT HIP WITH MODERATE BLOODY DRAINAGE BUT IS INTACT. PT DENIES PRESENCE OF NUMBNESS/TINGLING TO RLE. PEDAL PULSE IS PALP. CAP REFILL <3. PT DENIES PRESENCE OF PAIN/N/V. PT DENIES PRESENCE OF FURTHER NEEDS. BED IS IN THE LOWEST POSITION. CALL LIGHT AND BEDSIDE TABLE ARE WITHIN REACH. SIDE RAILS X 2. BED ALARM IS ON AND WORKING. WILL CONT TO MONITOR.
[2019-02-15 07:17] LABS: ANION GAP 16.6 mmol/L (8-16); CALCIUM 7.3 mg/dL (8.5-10.1); CARBON DIOXIDE 23.1 mmol/L (21.0-32.0); CREATININE - SERUM 1.5 mg/dL (0.6-1.3); MAGNESIUM - SERUM 1.3 mg/dL (1.8-2.4); POTASSIUM - SERUM 5.7 mmol/L (3.5-5.1)
[2019-02-15 07:53] LABS: PLATELET ESTIMATE DECREASED
[2019-02-15 08:42] VITALS: BP 82/51
[2019-02-15 08:48] VITALS: BP 72/48
--- NOTE | 2019-02-15 08:49 | NUR ---
UPON ENTERING PT ROOM. PT WITH LISINOPRIL 10MG PRESCRIPTION FROM HOME ON BEDSIDE TABLE. PT STATES "I ALREADY TOOK MY BLOODPRESSURE MEDICINE". PT REPORTS THAT HE TOOK HIS MEDICATION ORDERED. MANUAL BP OBTAINED SEE FLOWSHEET. PT IS HYPOTENSIVE AT THIS TIME BUT AAO X 4. GM GONCALVES APRN PAGED.
--- NOTE | 2019-02-15 09:02 | NUR ---
LUIS MIGUEL SANDHU APRN NOTIFIED OF PT HYPOTENSIVE STATE AND H/H LEVEL WELL PT TAKING HOME MEDICATION. TELEPHONE ORDERS RECD ARE HOLD ALL BP MEDICATION AND TRANSFUSE [address] ORDERS.
--- NOTE | 2019-02-15 09:39 | NUR ---
ROOM CHECK COMPLETED OF PT ROOM. PT EDUCATED ON NOT TAKING MEDICATION FROM HOME UNLESS OTHERWISE DIRECTED BY DR. PT VERBALIZES UNDERSTANDING AND STATES THAT HE HAS NOT TAKEN ANY OTHER HOME MEDICATION EXCEPT FOR LISINOPRIL THIS AM. HOME MEDICATIONS ARE PUT AWAY AND PT NOTIFIED SPOUSE TO COME AND TAKE HOME MEDICATION BACK HOME.
--- NOTE | 2019-02-15 10:50 | NUR ---
UNIT (1) OF PRBC TRANSFUSION INTIATED. SEE TRANSFUSION CARD. NO APPARENT S/S OF DISTRESS NOTED AT THIS TIME. PT IS AAO X 4. DRESSING TO RIGHT HIP REINFORCED WITH 4X4 GAUZE AND ABD PADS. DR QUINTEROS AT BEDSIDE AT THIS TIME VERBAL ORDERS TO NOTIFY OF POST TRANSFUSION BP AND ORDER POST TRANSFUSION H/H. WILL PLACE ORDERS. PT DENIES PRESENCE OF PAIN/N/V AT THIS TIME. WILL STAY IN ROOM TO MONITOR CLOSELY FOR FIRST 15 MINUTES OF TRANSFUSION. BED IS IN THE LOWEST POSITION. CALL LIGHT AND BEDSIDE TABLE ARE WITHIN REACH. SIDE RAILS X 2. BED ALARM IS ON.
--- NOTE | 2019-02-15 11:05 | NUR ---
SEE TRANSFUSION CARD FOR VS. PT IS AAO X 4. NO APPARENT S/S OF DISTRESS NOTED AT THIS TIME. PRBC INFUSING WITHOUT DIFFICULTY. PT DENIES PRESENCE OF N/V/PAIN AT THIS TIME. BED IS IN THE LOWEST POSITION. CALL LIGHT AND BEDSIDE TABLE ARE WITHIN REACH. SIDE RAILS X 2. BED ALARM IS ON. PT DENIES FURTHER NEEDS. WILL CONT TO MONITOR.
[2019-02-15 13:24] VITALS: Ht 185.4 cm; Wt 63.2 kg
--- NOTE | 2019-02-15 13:26 | NUR ---
UNIT (2) OF PRBC TRANFUSION INITIATED. VSS. SEE TRANSFUSION CARD. PT IS AAO X 4. NO APPARENT S/S OF DISTRESS NOTED AT THIS TIME. WILL STAY IN ROOM TO CLOSELY MONITOR FOR FIRST 15 MINUTES OF TRANSFUSION.
--- NOTE | 2019-02-15 14:00 | NUR ---
22G PIV PLACED TO RIGHT FA X 1 ATTEMPT.
--- NOTE | 2019-02-15 15:35 | NUR ---
UNIT (2) OF PRBC INFUSION IS COMPLETE. VSS. SEE TRANSFUSION CARD. PT IS AAO X 4. NO APPARENT S/S DISTRESS NOTED. POST TRANSFUSION H/H ORDERED PER DR QUINTEROS. PT DENIES PRESENCE OF N/V/PAIN AT THIS TIME. BED IS IN THE LOWEST POSITION. CALL LIGHT AND BEDSIDE TABLE ARE WITHIN REACH. SIDE RAILS X 2. BED ALARM IS ON AND WORKING. PT DENIES FURTHER NEEDS. WILL CONT TO MONITOR.
--- NOTE | 2019-02-15 16:02 | MORECARE ---
CASE MANAGEMENT DISCHARGE SUMMARY PATIENT: HARRIET PEPE UNIT: [id number] ADM DATE: 02/14/19 AGE: 63 : 51 SEX: M ROOM/BED: D.2213 AUTHOR: WEIDOC PHYSICIAN: REFERRING PHYSICIAN: HIMANSHU ESPINAL MD DATE OF SERVICE: 02/15/19 Discharge Plan Patient Name: HARRIET PEPE Facility: [facility]:[place] : 1955 Planned Disposition: Home or Self Care Anticipated Discharge Date: Discharge Date: Expected LOS: Initial Reviewer: [email or web address] Initial Review Date: 02/14/2019 Generated: 02/15/19 5:01 pm Comments DCP- Discharge Planning Updated by [id number]: Shanique Anton on 02/15/19 2:[address] Patient Name: HARRIET PEPE Admission Status: Urgent Accout number: [id number] Admission Date: 02-14-2019 : 1955 Admission Diagnosis: Attending: HIMANSHU ESPINAL Current LOS: 1 Anticipated DC Date: Planned Disposition: Home or Self Care Primary Insurance: MEDICARE A & B Discharge Planning Comments: CM met with patient to complete initial dc planning assessment. CM educated patient on the CM role and verbal consent given by patient to complete assessment. Patient lives at home with his spouse where he was/is independent with his care. At discharge patient plans to return home and feels this is a safe discharge. CM discussed availability of home health, rehab services, and medical equipment. He is unsure where he will do his rehab. He said he will talk to his and let me know tomorrow. 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 He has a walker, BSC, and cane at home.Patient denied known discharge needs at this time. CM will continue to follow and will assist as needed with dc plans/needs. Agricultural Technical Officer: Shanique Anton DCPIA - Discharge Planning Initial Assessment Updated by [email or web address]: Shanique Anton on 02/15/19 3:53 pm * Is the patient Alert and Oriented? Yes * How many steps to enter\exit or inside your home? * PCP [place] * [facility]acy [facility] [address] * Preadmission Environment Home with Family * ADLs Independent * Equipment Bedside Commode Cane Rolling Walker * List name and contact numbers for known caregivers / representatives who currently or will assist patient after discharge: LUIS FELIPE PEPE (SPOUSE) [phone] * Verbal permission to speak to the caregivers and representatives has been obtained from the patient. N/A * Community resources currently utilized None * Additional services required to return to the preadmission environment? Yes * Can the patient safely return to the preadmission environment? Yes * Has this patient been hospitalized within the prior 30 days at any hospital? No Patient Name: HARRIET PEPE Page 34528 at 1602 All edits/amendments must be made on the electronic document DICTATION DATE: 02/15/191600 GRADUATE STUDENT INSTRUCTOR: FREDERIC 02/15/191600 RPT#: [id number] DC DATE: STATUS: ADM IN [facility] [address] [place] [address] END OF REPORT
[2019-02-15 16:30] LABS: HEMOGLOBIN 8.9 g/dL (13.5-17.5)
[2019-02-15 21:26] VITALS: BP 111/67
[2019-02-16] VITALS (7 sets, daily range): BP systolic 100–139; BP diastolic 64–93
--- NOTE | 2019-02-16 03:46 | NUR ---
RESTING IN BED WITH NO S/S OF DISTRESS CALL LIGHT AND WATER IN REACH.
[2019-02-16 07:33] LABS: CALC OSMOLALITY 272 mosm/kg (275-300); CALCIUM 7.1 mg/dL (8.5-10.1); CARBON DIOXIDE 27.2 mmol/L (21.0-32.0); CHLORIDE - SERUM 101 mmol/L (98-107); GLUCOSE 90 mg/dL (74-106); MAGNESIUM - SERUM 1.1 mg/dL (1.8-2.4); POTASSIUM - SERUM 4.2 mmol/L (3.5-5.1); SODIUM 135 mmol/L (136-145); UREA NITROGEN 20 mg/dL (7-18)
[2019-02-16 07:49] LABS: CREATININE - SERUM 0.8 mg/dL (0.6-1.3); eGFR NON AFRICAN AMERICAN > 90 mL/min (90-120)
--- NOTE | 2019-02-16 08:38 | NUR ---
PT SITTING UP IN BED EATING BREAKFAST, NO S/S OF DISTRESS, BED IN LOW POSITION, CL IN REACH CONTINUE WITH PLAN OF CARE
[2019-02-16 09:31] LABS: BASOPHILS 0.2 % (0-2); EOSINOPHILS 0.4 % (0-7); HEMATOCRIT 27.4 % (42.0-54.0); HEMOGLOBIN 9.4 g/dL (13.5-17.5); IMMATURE GRANULOCYTES 0.4 % (0-5); LYMPHOCYTES 20.9 % (15-50); MCH 34.8 pg (26.0-34.0); MCHC 34.3 g/dL (31.0-37.0); MONOCYTES 13.5 % (2-11); NEUTROPHILS 64.6 % (40-80); PLATELET COUNT 74 10x3/uL (130-400); RDW 19.3 % (11.5-14.5); WBC 5.3 10x3/uL (4.8-10.8)
[2019-02-16 09:36] LABS: MCV 101.5 fL (80.0-100.0)
--- NOTE | 2019-02-16 10:44 | NUR ---
TOOK PATIENT DRESSING ON HIP OFF AND CHANGED AGAIN WITH MEPLEX AND BORDER GAUZE DRESSING TOPPED WITH ABD DRESSING. PT UP IN CHAIR AT BEDSIDE CONTINUE WITH PLAN OF CARE
--- NOTE | 2019-02-16 13:01 | NUR ---
Rehab Note- Acute Inpatient REhab prescreen order received. THe patient is POD #2. Will plan on possible admit tomorrow 02/17/19. Spoke with case management. Will continue to follow at this time. THank you for this referral! Maximilian Schultz RN Clinical Liaison, [facility] Rehab
--- NOTE | 2019-02-16 20:00 | NUR ---
ALERT RESTIGN I BED DRESSED IN STREAT CLOTHES STATES IM READY TO GO THEY ARE COMMING TO GET ME TO GO TO REHAB. REORIENTIATED TO ROOM AND THAT IT WAS EVENING AND NOT GOING ANYWHERE TILL IN MORNING. IV OUT ARM BANDS OFF, CALL LIGHT IN REACH, SIA MAT ON BED
--- NOTE | 2019-02-16 21:30 | NUR ---
CALL RECIEVED FROM WHO VOICED CONCERNS THAT PT MAY BE GOING THROUGH ALCHOL AND NICOTINE WITHDRAWALS, WHICH COULD BE WHY HE IS CONFUSED CALL TO DR KRISHNA REPORTED WIFES CONCERNS, ORDER RECIEVED FOR [facility] PRN PT RESTING QUITELY WITH EYES CLOSED AT THIS TIME WILL RENU
[2019-02-17] VITALS (9 sets, daily range): BP systolic 114–165; BP diastolic 65–99
--- NOTE | 2019-02-17 01:30 | NUR ---
AWAKE CONFUSED UP OUT OF BED TO BATHROOM, AND AGAIN PACKING UP BELONGINGS TO LEAVE, REORIENTIATED TO PLACE AND TIME OF DAY, RETURNED TO BED WILL CONTINUE TO MONITOR
[2019-02-17 06:53] LABS: BASOPHILS 0.2 % (0-2); EOSINOPHILS 0 % (0-7); HEMATOCRIT 23.2 % (42.0-54.0); IMMATURE GRANULOCYTES 0.4 % (0-5); MCH 35.4 pg (26.0-34.0); MCHC 34.5 g/dL (31.0-37.0); MCV 102.7 fL (80.0-100.0); MONOCYTES 17.3 % (2-11); NEUTROPHILS 66.1 % (40-80); PLATELET COUNT 83 10x3/uL (130-400); RBC 2.26 10x6/uL (4.20-6.10); RDW 18.5 % (11.5-14.5); WBC 5.3 10x3/uL (4.8-10.8)
[2019-02-17 07:21] LABS: CALC OSMOLALITY 272 mosm/kg (275-300); CALCIUM 7.5 mg/dL (8.5-10.1); CARBON DIOXIDE 29.4 mmol/L (21.0-32.0); CHLORIDE - SERUM 100 mmol/L (98-107); CREATININE - SERUM 0.6 mg/dL (0.6-1.3); GLUCOSE 101 mg/dL (74-106); POTASSIUM - SERUM 3.8 mmol/L (3.5-5.1); SODIUM 137 mmol/L (136-145); eGFR NON AFRICAN AMERICAN > 90 mL/min (90-120)
[2019-02-17 07:39] LABS: UREA NITROGEN 11 mg/dL (7-18)
[2019-02-17 07:41] LABS: MAGNESIUM - SERUM 0.9 mg/dL (1.8-2.4)
--- NOTE | 2019-02-17 10:13 | MORECARE ---
CASE MANAGEMENT DISCHARGE SUMMARY PATIENT: HARRIET PEPE UNIT: [id number] ADM DATE: 02/14/19 AGE: 63 : 51 SEX: M ROOM/BED: D.2213 AUTHOR: FORREST CARVAJAL PHYSICIAN: REFERRING PHYSICIAN: HIMANSHU ESPINAL MD DATE OF SERVICE: 02/17/19 Discharge Plan Patient Name: HARRIET PEPE Facility: [facility]:[place] : 1955 Planned Disposition: Home or Self Care Anticipated Discharge Date: Discharge Date: Expected LOS: Initial Reviewer: [id number] Initial Review Date: 02/14/2019 Generated: 02/17/19 11:13 am Comments DCP- Discharge Planning Updated by [email or web address]: Shanique Anton on 02/17/19 9:[address] IMM SERVED AND EXPLAINED, COPY GIVEN TO PATIENT. DCP- Discharge Planning Updated by [email or web address]: Shanique Anton on 02/15/19 2:[address] Patient Name: HARRIET PEPE Admission Status: Urgent Accout number: [id number] Admission Date: 02-14-2019 : 1955 Admission Diagnosis: Attending: HIMANSHU ESPINAL Current LOS: 1 Anticipated DC Date: Planned Disposition: Home or Self Care Primary Insurance: MEDICARE A & B Discharge Planning Comments: CM met with patient to complete initial dc planning assessment. CM educated patient on the CM role and verbal consent given by patient to complete assessment. Patient lives at home with his spouse where he was/is independent with his care. At discharge patient plans to return home and feels this is a safe discharge. CM discussed availability of home health, rehab services, and medical equipment. He is unsure where he will do his rehab. He said he will talk to his and let me know tomorrow. 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 He has a walker, BSC, and cane at home.Patient denied known discharge needs at this time. CM will continue to follow and will assist as needed with dc plans/needs. Supervisor Gate Services: Shanique Anton DCPIA - Discharge Planning Initial Assessment Updated by [email or web address]: Shanique Anton on 02/15/19 3:53 pm * Is the patient Alert and Oriented? Yes * How many steps to enter\exit or inside your home? * PCP [facility] * Pharmacy [facility] [address] * Preadmission Environment Home with Family * ADLs Independent * Equipment Bedside Commode Cane Rolling Walker * List name and contact numbers for known caregivers / representatives who currently or will assist patient after discharge: LUIS FELIPE PEPE (SPOUSE) [phone] * Verbal permission to speak to the caregivers and representatives has been obtained from the patient. N/A * Community resources currently utilized None * Additional services required to return to the preadmission environment? Yes * Can the patient safely return to the preadmission environment? Yes * Has this patient been hospitalized within the prior 30 days at any hospital? No Coverage Notice Reviewer: [email or web address] Dana Anton Notice Issued Date-Time: 02/17/2019 9:10 Notice Type: IM Discharge Notice Notice Delivered To: Patient Relationship to Patient: Mill Laborer Name: Delivery Method: HAND - Hand Delivered Zuri Days: Prior Verbal Notification: Recipient Understood Notice: Yes Recipient Signature: Yes Med Rec Note Co-signed by Attending: Coverage Notice Comment: Last DP export: 02/15/19 3:02 Patient Name: HARRIET PEPE Page 15385 at 1013 All edits/amendments must be made on the electronic document DICTATION DATE: 02/17/19 1013 COPPER TAPPER: FREDERIC 02/17/19 1013 RPT#: [id number] DC DATE: STATUS: ADM IN [facility] [address] [place] [address] END OF REPORT
[2019-02-17 11:19] LABS: PLATELET ESTIMATE DECREASED
[2019-02-17 11:20] LABS: ANISOCYTOSIS OCC; HYPOCHROMASIA OCC; ROULEAUX OCC
--- NOTE | 2019-02-17 14:41 | MORECARE ---
CASE MANAGEMENT DISCHARGE SUMMARY PATIENT: HARRIET PEPE UNIT: [id number] ADM DATE: 02/14/19 AGE: 63 : 51 SEX: M ROOM/BED: D.2213 AUTHOR: FORREST CARVAJAL PHYSICIAN: REFERRING PHYSICIAN: HIMANSHU ESPINAL MD DATE OF SERVICE: 02/17/19 Discharge Plan Patient Name: HARRIET PEPE Facility: [facility]:[place] : 1955 Planned Disposition: Home or Self Care Anticipated Discharge Date: Discharge Date: Expected LOS: Initial Reviewer: [email or web address] Initial Review Date: 02/14/2019 Generated: 02/17/19 3:40 pm Comments DCP- Discharge Planning Updated by [id number]: Shanique Anton on 02/17/19 1:[address] PATIENT TO DC TO INPATIENT REHAB TODAY, I ATTEMPTED TO CALL SHIV () TO LET HER KNOW, I LEFT MESSAGE FOR HER DCP- Discharge Planning Updated by [email or web address]: Shanique Anton on 02/17/19 9:[address] IMM SERVED AND EXPLAINED, COPY GIVEN TO PATIENT. DCP- Discharge Planning Updated by [email or web address]: Shanique Anton on 02/15/19 2:[address] Patient Name: HARRIET PEPE Admission Status: Urgent Accout number: [id number] Admission Date: 02-14-2019 : 1955 Admission Diagnosis: Attending: HIMANSHU ESPINAL Current LOS: 1 Anticipated DC Date: Planned Disposition: Home or Self Care Primary Insurance: MEDICARE A & B Discharge Planning Comments: CM met with patient to complete initial dc planning assessment. CM educated patient on the CM role and verbal consent given by patient to complete assessment. Patient lives at home with his spouse where he was/is independent with his care. At discharge patient plans to return home and feels this is a safe discharge. CM discussed availability of home health, rehab services, and medical equipment. He is unsure where he will do his rehab. He said he will talk to his and let me know tomorrow. 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 He has a walker, BSC, and cane at home.Patient denied known discharge needs at this time. CM will continue to follow and will assist as needed with dc plans/needs. Switchman Supervisor: Shanique Anton DCPIA - Discharge Planning Initial Assessment Updated by [id number]: Shanique Anton on 02/15/19 3:53 pm * Is the patient Alert and Oriented? Yes * How many steps to enter\exit or inside your home? * PCP CLARI * Pharmacy [facility] [address] * Preadmission Environment Home with Family * ADLs Independent * Equipment Bedside Commode Cane Rolling Walker * List name and contact numbers for known caregivers / representatives who currently or will assist patient after discharge: LUIS FELIPE PEPE (SPOUSE) [phone] * Verbal permission to speak to the caregivers and representatives has been obtained from the patient. N/A * Community resources currently utilized None * Additional services required to return to the preadmission environment? Yes * Can the patient safely return to the preadmission environment? Yes * Has this patient been hospitalized within the prior 30 days at any hospital? No Coverage Notice Reviewer: [id number] - Shanique Anton Notice Issued Date-Time: 02/17/2019 9:10 Notice Type: IM Discharge Notice Notice Delivered To: Patient Relationship to Patient: Parachute Repairer Name: Delivery Method: HAND - Hand Delivered Zuri Days: Prior Verbal Notification: Recipient Understood Notice: Yes Recipient Signature: Yes Med Rec Note Co-signed by Attending: Coverage Notice Comment: Last DP export: 02/17/19 9:13 Patient Name: HARRIET PEPE Page 23466 at 1441 All edits/amendments must be made on the electronic document DICTATION DATE: 02/17/19 144 APPEALS ANALYST: FREDERIC 02/17/19 144 RPT#: [id number] DC DATE: STATUS: ADM IN [facility] [address] [place] [address] END OF REPORT
[2019-02-17] MEDS ORDERED: COLACE100 MG PO (14:49)
[2019-02-17] MEDS ORDERED: PROTONIX40 MG PO (14:49)
[2019-02-17] MEDS ORDERED: MAG-OX 400 MG400 MG PO (14:49)
[2019-02-17] MEDS ORDERED: ELIQUIS2.5 MG PO (14:50)
--- NOTE | 2019-02-17 16:16 | MORECARE ---
CASE MANAGEMENT DISCHARGE SUMMARY PATIENT: HARRIET PEPE UNIT: [id number] ADM DATE: 02/14/19 AGE: 63 : 51 SEX: M ROOM/BED: D.2213 AUTHOR: FORREST CARVAJAL PHYSICIAN: REFERRING PHYSICIAN: HIMANSHU ESPINAL MD DATE OF SERVICE: 02/17/19 Discharge Plan Patient Name: HARRIET PEPE Facility: [facility]:[place] : 1955 Planned Disposition: Home or Self Care Anticipated Discharge Date: Discharge Date: Expected LOS: Initial Reviewer: [email or web address] Initial Review Date: 02/14/2019 Generated: 02/17/19 5:16 pm Comments DCP- Discharge Planning Updated by [email or web address]: Shanique Anton on 02/17/19 3:[address] PATIENT IS NOT GOING TO INPATIENT REHAB TODAY, DR QUINTEROS HAS CANCELLED HIS DISCHARGE DCP- Discharge Planning Updated by [id number]: Shanique Anton on 02/17/19 1:[address] PATIENT TO DC TO INPATIENT REHAB TODAY, I ATTEMPTED TO CALL SHIV () TO LET HER KNOW, I LEFT MESSAGE FOR HER DCP- Discharge Planning Updated by [email or web address]: Shanique Anton on 02/17/19 9:[address] IMM SERVED AND EXPLAINED, COPY GIVEN TO PATIENT. DCP- Discharge Planning Updated by [id number]: Shanique Anton on 02/15/19 2:[address] Patient Name: HARRIET PEPE Admission Status: Urgent Accout number: [id number] Admission Date: 02-14-2019 : 1955 Admission Diagnosis: Attending: HIMANSHU ESPINAL Current LOS: 1 Anticipated DC Date: Planned Disposition: Home or Self Care Primary Insurance: MEDICARE A & B Discharge Planning Comments: CM met with patient to complete initial dc planning assessment. CM educated patient on the CM role and verbal consent given by patient to complete assessment. Patient lives at home with his spouse where he was/is independent with his care. At discharge patient plans to return home and feels this is a safe discharge. CM discussed availability of home health, rehab services, and medical equipment. He is unsure where he will do his rehab. He said he will talk to his and let me know tomorrow. 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 He has a walker, BSC, and cane at home.Patient denied known discharge needs at this time. CM will continue to follow and will assist as needed with dc plans/needs. Care Transition Mgr: Shanique Anton DCPIA - Discharge Planning Initial Assessment Updated by [email or web address]: Shanique Anton on 02/15/19 3:53 pm * Is the patient Alert and Oriented? Yes * How many steps to enter\exit or inside your home? * PCP CLARI * [facility]acy [facility] [address] * Preadmission Environment Home with Family * ADLs Independent * Equipment Bedside Commode Cane Rolling Walker * List name and contact numbers for known caregivers / representatives who currently or will assist patient after discharge: LUIS FELIPE PEPE (SPOUSE) [phone] * Verbal permission to speak to the caregivers and representatives has been obtained from the patient. N/A * Community resources currently utilized None * Additional services required to return to the preadmission environment? Yes * Can the patient safely return to the preadmission environment? Yes * Has this patient been hospitalized within the prior 30 days at any hospital? No Coverage Notice Reviewer: [id number] - Shanique Anton Notice Issued Date-Time: 02/17/2019 9:10 Notice Type: IM Discharge Notice Notice Delivered To: Patient Relationship to Patient: Remelt Sugar Boiler Name: Delivery Method: HAND - Hand Delivered Zuri Days: Prior Verbal Notification: Recipient Understood Notice: Yes Recipient Signature: Yes Med Rec Note Co-signed by Attending: Coverage Notice Comment: Last DP export: 02/17/19 1:41 Patient Name: HARRIET PEEP Page 07698 at 1616 All edits/amendments must be made on the electronic document DICTATION DATE: 02/17/191615 MACHINE WASHER: FREDERIC 02/17/191615 RPT#: [id number] DC DATE: STATUS: ADM IN [facility] [address] [place] [address] END OF REPORT
--- NOTE | 2019-02-17 16:19 | NUR ---
PT INCREASINGLY CONFUSED AND HALLUCINATING, SEEING YOUNG CHILDREN IN ROOM AND NOT PRESENT IN ROOM WHEN HE STATES THAT THEY ARE. PT TALKING TO HIMSELF, PICKING AT THINGS. ATIVAN 1MG ADMINISTERED PO AT THIS TIME PER ORDERS. IV SITED TO RIGHT FOREARM 22g X 1 STICK. STARTED MAGNESIUM PER ORDERS AT THIS TIME. PT CONTINUES TO ATTEMPT TO GET OUT OF BED ON OWN. FALL PRECAUTIONS IN PLACE. PROVIDED REALITY ORIENTATION, HOWEVER HE REMAINS ORIENTED TO PERSON ONLY.
--- NOTE | 2019-02-17 17:35 | NUR ---
PT SIA ALARM SOUNDING. PT FOUND SITTING ON SOB BLEEDING WHERE HE HAS BITTEN IV TUBING INTO. IV TO LEFT FOREARM DISCONTINUED, DRESSING APPLIED TO SITE. PT REMAINS CONFUSED. HALLUCINATING. CONTACTING SPOUSE BY PHONE REPEADETLY. ATTEMPTED TO REORIENTATE PT, BUT UNSUCCESSFUL. PT ATTEMPTS TO GET UP FROM BED ON OWN STAFF NEARBY. STATES THAT HE IS GOING TO BACK BATHROOM. ASSISTED PT TO BATHROOM. WHERE HIS GATE IS UNSTEADY. HE CONTINUES TO HALLUCINATE, PICKING AT OBJECTS ON FLOOR THAT ARE SPECKS OF COLOR IN THE LUZ. PT BECOMES SOMEWHAT AGGRESSIVE STAFF ATTEMPTS TO EDUCATE PT REGARDING RISK FOR FALLS AND NEED FOR STAFF ASSISTANCE. HOLLERING AT STAFF "I CAN DO THIS ON MY OWN. I WILL USE THIS BAR RIGHT HERE. YOU CAN LEAVE ME ALONE." STAFF REMAINED AT DOORWAY TO BATHROOM FOR PT SAFETY. ASSISTED BACK TO BED, SIA BED ALARM INPLACE AND ON. CL WITHIN REACH.
--- NOTE | 2019-02-17 17:55 | NUR ---
CONTACTED PHARMACY FOR THIAMIN FOR IM INJECTION. HE STATED THAT HE WOULD HAVE TO BRING IT UP.
--- NOTE | 2019-02-17 21:45 | NUR ---
RECEIVED PT IN WHEELCHAIR FROM [facility], PT AMBULATED WITH ASSISTANCE FROM THE WHEELCHAIR TO THE BED. VSS, NO SIGNS OF ACUTE DISTRESS NOTED. R HIP DRESSING CDI, BRUISING NOTED AROUND THE DRSNG. PT CONFUSED, REORIENTED NEEDED. ATTEMPTED TO TAKE OFF TELE WIRES AND INSTRUCTED TO PUT BACK ON. SHIFT ASSESSMENT COMPLETE, SEE FLOWSHEET. CALL LIGHT IN REACH, BED IN LOWEST POSITION. WILL MONITOR.
--- NOTE | 2019-02-17 21:47 | NUR ---
REPORT GIVEN TO AKANKSHA IN ICU, TRANSPORTED TO ICU VIA WC
--- NOTE | 2019-02-17 22:00 | NUR ---
OBSERVED HALLUCINATING. REORIENTED.
--- NOTE | 2019-02-17 23:00 | NUR ---
PT OBSERVED GETTING OUT OF BED, TALKING TO SOMEBODY IN THE ROOM - REORIENTED AND ASSISTED BACK TO BED. SANDWICH GIVEN, ATE 50%.
[2019-02-18] VITALS (24 sets, daily range): BP systolic 105–153; BP diastolic 71–110
[2019-02-18 00:55] LABS: BASOPHILS 0 % (0-2); EOSINOPHILS 0.2 % (0-7); HEMATOCRIT 21.4 % (42.0-54.0); IMMATURE GRANULOCYTES 0.2 % (0-5); LYMPHOCYTES 16.3 % (15-50); MCH 36.2 pg (26.0-34.0); MCV 103.4 fL (80.0-100.0); MEAN PLATELET VOLUME 9.6 fL (7.4-10.4); MONOCYTES 18.9 % (2-11); NEUTROPHILS 64.4 % (40-80); PLATELET COUNT 95 10x3/uL (130-400); RBC 2.07 10x6/uL (4.20-6.10); RDW 17.8 % (11.5-14.5); WBC 5.3 10x3/uL (4.8-10.8)
[2019-02-18 00:56] LABS: HEMOGLOBIN 7.5 g/dL (13.5-17.5)
[2019-02-18 01:10] LABS: ALBUMIN 2.8 g/dL (3.4-5.0); ALKALINE PHOSPHATASE 67 U/L (46-116); ALT (SGPT) 43 U/L (10-68); BILIRUBIN - TOTAL 0.78 mg/dL (0.2-1.3); CALC OSMOLALITY 275 mosm/kg (275-300); CALCIUM 7.4 mg/dL (8.5-10.1); CARBON DIOXIDE 28.1 mmol/L (21.0-32.0); CHLORIDE - SERUM 101 mmol/L (98-107); CREATININE - SERUM 0.9 mg/dL (0.6-1.3); GLUCOSE 111 mg/dL (74-106); MAGNESIUM - SERUM 1.3 mg/dL (1.8-2.4); POTASSIUM - SERUM 3.2 mmol/L (3.5-5.1); PROTEIN - SERUM 6.1 g/dL (6.4-8.2); SODIUM 137 mmol/L (136-145); UREA NITROGEN 15 mg/dL (7-18); eGFR NON AFRICAN AMERICAN 90 mL/min (90-120)
--- NOTE | 2019-02-18 01:25 | NUR ---
KATTY WU APN PAGED AND UPDATE GIVEN. NEW ORDERS RECEIVED TO TRANSFUSE 2 UNITS PRBC AND START PIV. 20 G PIV INSERTED TO L FOREARM.
--- NOTE | 2019-02-18 03:00 | NUR ---
REASSESSMENT COMPLETE, SEE FLOWSHEET. PT SLEEPING, EASY TO AROUSE. VSS, NO SIGNS OF ACUTE DISTRESS NOTED. WILL CONTINUE TO MONITOR.
[2019-02-18 03:08] LABS: BASOPHILS 0.2 % (0-2); EOSINOPHILS 0.2 % (0-7); HEMATOCRIT 20.2 % (42.0-54.0); IMMATURE GRANULOCYTES 0.2 % (0-5); LYMPHOCYTES 17.3 % (15-50); MCH 35.4 pg (26.0-34.0); MCHC 34.7 g/dL (31.0-37.0); MEAN PLATELET VOLUME 9.3 fL (7.4-10.4); MONOCYTES 19.1 % (2-11); PLATELET COUNT 101 10x3/uL (130-400); RDW 17.7 % (11.5-14.5)
[2019-02-18 03:12] LABS: RBC 1.98 10x6/uL (4.20-6.10)
[2019-02-18 03:16] LABS: APTT 20.7 SECONDS (22.8-39.4)
[2019-02-18 03:18] LABS: CALC OSMOLALITY 277 mosm/kg (275-300); CALCIUM 7.1 mg/dL (8.5-10.1); CARBON DIOXIDE 25.4 mmol/L (21.0-32.0); CHLORIDE - SERUM 101 mmol/L (98-107); CREATININE - SERUM 0.8 mg/dL (0.6-1.3); GLUCOSE 125 mg/dL (74-106); MAGNESIUM - SERUM 1.1 mg/dL (1.8-2.4); PHOSPHOROUS 2.7 mg/dL (2.5-4.9); POTASSIUM - SERUM 3.4 mmol/L (3.5-5.1); SODIUM 138 mmol/L (136-145); UREA NITROGEN 14 mg/dL (7-18); eGFR NON AFRICAN AMERICAN > 90 mL/min (90-120)
[2019-02-18 03:21] LABS: INR 1.2 (0.85-1.17); PROTIME 14.6 SECONDS (11.6-15.0)
--- NOTE | 2019-02-18 05:00 | NUR ---
CHG BATH, LINEN CHANGE COMPLETE. VSS, NO SIGNS OF ACUTE DISTRESS NOTED. PRBC INFUSING PER ORDERS.
--- NOTE | 2019-02-18 07:15 | NUR ---
PT RESTING IN BED ASLEEP, VSS AND WNL. SHIFT ASSESSMENT PERFORMED. 1ST UNIT OF PRBC COMPLETE, 2ND UNIT OF PRBC STARTED. PT IS CURRENTLY IN RESTRAINTS TO BILATERAL WRISTS DUE HALLUCINATIONS AND AMS. TREATING PT FOR POSSIBLE DT AT THIS TIME. RESTRAINTS REMOVED TO CHECK SKIN. SKIN TO BILATERAL WRIST C/D/I. NO REDNESS NOTED. WILL CONT TO FOLLOW POC
--- NOTE | 2019-02-18 07:33 | NUR ---
15 MINUTE POST TRANSFUSION VITALS OBTAINED AND WNL. PT RESTING IN BED ASLEEP. WILL CONT TO FOLLOW POC
--- NOTE | 2019-02-18 08:07 | NUR ---
PT BECOMING AGGITATED. PRN IV ATIVAN GIVEN ORDERED. WILL CONT TO FOLLOW POC
--- NOTE | 2019-02-18 09:00 | NUR ---
PT MG THIS AM WAS 1.1 AND PT NOT ABLE TO WAKE UP ENOUGH FOR PO MEDS AT THIS TIME. PIV TO LEFT FA HAS PRBC INFUSING AT THIS TIME. 20G PIV INSERTED X1 ATTEMPT TO RIGHT FA. PT TOLERATED WELL. 1GM MG STARTED TO RIGHT PIV. WILL CONT TO FOLLOW POC
--- NOTE | 2019-02-18 09:10 | NUR ---
PT WOKE UP AND DRANK SOME APPLE JUICE WITH NO SIGNS OF ASPIRATION. PO MEDS GIVEN ORDERED. PT TOOK A FEW SMALL BITES OF EGGS. PT FELL BACK ASLEEP. HOB LOWERED TO 30. BED ALARM ON AND TESTED. WILL CONT TO FOLLOW POC
--- NOTE | 2019-02-18 10:10 | NUR ---
PT WOKE UP AND BEGAN PULLING AT SHEETS. SCHEDULED ATIVAN GIVEN ORDERED. PARTH CARE PROVIDED AND PT REPOSITIONED IN BED. SOFT WRIST RESTRAINTS IN USE AT THIS TIME. PT WAS ABLE TO STATE HIS NAME, , AND YEAR BUT STATES HE IS [facility]. PT REORIENTED TO ICU. ICE PACKS PLACED TO RIGHT HIP DUE TO SWELLING. PT STATES HE IS NOT IN PAIN AT THIS TIME. BED ALARM ON, NONSLIP SOCKS ON, CALL LIGHT WITHIN REACH. 2ND UNIT PRBC COMPLETE AT THIS TIME, POST TRANSFUSION VITALS WNL. WILL CONT TO FOLLOW POC
--- NOTE | 2019-02-18 10:34 | NUR ---
PT AGGITATED. WHEN ASKED PAIN LEVEL PT STATES 10/10. PRN NORCO GIVEN ORDERED. PT STATES HE IS COLD. WARM BLANKET PROVIDED AND PT RELAXED AND CLOSED HIS EYES. WILL CONT TO FOLLOW POC
--- NOTE | 2019-02-18 11:25 | NUR ---
Nutrition follow-up: Pt now in ICU 2/2 DT's from heavy ETOH use Diet: Regular PO intake had been 75-100% of meals; however, due to confusion po intake has decreased Labs reviewed Wt: 139# +BM RDN following.
--- NOTE | 2019-02-18 12:40 | NUR ---
ORTHO HERE AND ASSISTED WITH DRESSING CHANGE TO RIGHT HIP. NO NEW ORDERS RECIEVED AT THIS TIME. PARTH CARE PROVIDED AND FULL LINEN CHANGE PROVIDED. WILL CONT TO FOLLOW POC
--- NOTE | 2019-02-18 13:30 | NUR ---
ASSISTED PT WITH TRAY SET UP. PT ATE 15% OF MEAL. BED ALARM ON AND TESTED. WILL CONT TO FOLLOW POC
--- NOTE | 2019-02-18 14:29 | NUR ---
FFP STARTED ORDERED. PRE TRANSUSION VITALS STABLE. WRIST RESTRAINTS REMOVED. PT IS RESTING IN BED ASLEEP. WILL CONT TO FOLLOW POC
--- NOTE | 2019-02-18 15:42 | NUR ---
FFP CURRENTLY INFUSING. PT RESTING IN BED ASLEEP. VSS AND WNL. WILL CONT TO FOLLOW POC
--- NOTE | 2019-02-18 15:51 | NUR ---
HERE AND ASSESSED PT INCISION. NO NEW ORDERS RECIEVED AT THIS TIME.
--- NOTE | 2019-02-18 17:12 | NUR ---
PT RESTING IN BED, AT BEDSIDE, TRAY SET UP PROVIDED. PT ALERT AND TALKING WITH FAMILY. CALL LIGHT WITHIN REACH, BED ALARM ON AND TESTED, WILL CONT TO FOLLOW POC
--- NOTE | 2019-02-18 17:39 | NUR ---
PT IS CRAVING A CIGARETTE. ADVISED PT WE CAN ORDER A NICOTINE PATCH TO HELP THE CRAVINGS. PT AGREES, CALLED [facility] AND NEW ORDER RECIEVED FOR NICOTINE PATCH
--- NOTE | 2019-02-18 19:05 | NUR ---
SHIFT ASSESSMENT COMPLETED, LARGE HEMATOMA ON RIGHT HIP NOTED, VSS SEE FLOWSHEET FOR ASSESSMENT DETAILS, PT AWAKE ALERT AND ORIENTED X 4
[2019-02-18 19:07] LABS: BASOPHILS 0.2 % (0-2); EOSINOPHILS 0.5 % (0-7); LYMPHOCYTES 21.2 % (15-50); MCH 33.1 pg (26.0-34.0); MCHC 33.6 g/dL (31.0-37.0); MEAN PLATELET VOLUME 9.1 fL (7.4-10.4); MONOCYTES 20.8 % (2-11); NEUTROPHILS 57.3 % (40-80); PLATELET COUNT 90 10x3/uL (130-400); RDW 20.9 % (11.5-14.5); WBC 4.2 10x3/uL (4.8-10.8)
[2019-02-18 19:10] LABS: HEMATOCRIT 28.3 % (42.0-54.0); HEMOGLOBIN 9.5 g/dL (13.5-17.5); MCV 98.6 fL (80.0-100.0); RBC 2.87 10x6/uL (4.20-6.10)
[2019-02-18 19:38] LABS: INR 1.07 (0.85-1.17); PROTIME 13.4 SECONDS (11.6-15.0)
--- NOTE | 2019-02-18 23:30 | NUR ---
REASSESSMENT COMPLETED SEELEXI
[2019-02-19] VITALS (9 sets, daily range): BP systolic 113–140; BP diastolic 63–99
--- NOTE | 2019-02-19 02:00 | NUR ---
PATIENT RECEIVED HS MEDICATIONS - SEE EMAR FOR ADMINISTRATION
--- NOTE | 2019-02-19 02:01 | NUR ---
PATIENT RESTING COMFORTABLY, REPORTS REDUCTION OF PAIN
[2019-02-19 03:20] LABS: BASOPHILS 0.2 % (0-2); EOSINOPHILS 0.5 % (0-7); HEMATOCRIT 26.8 % (42.0-54.0); HEMOGLOBIN 9.2 g/dL (13.5-17.5); IMMATURE GRANULOCYTES 0.2 % (0-5); LYMPHOCYTES 20.7 % (15-50); MCH 33.7 pg (26.0-34.0); MCHC 34.3 g/dL (31.0-37.0); MCV 98.2 fL (80.0-100.0); MONOCYTES 22.1 % (2-11); NEUTROPHILS 56.3 % (40-80); PLATELET COUNT 106 10x3/uL (130-400); RBC 2.73 10x6/uL (4.20-6.10); RDW 20.4 % (11.5-14.5); WBC 4.4 10x3/uL (4.8-10.8)
--- NOTE | 2019-02-19 03:38 | NUR ---
REASSESSMENT COMPLETED SEE FLOWSHEET
[2019-02-19 03:40] LABS: CALC OSMOLALITY 265 mosm/kg (275-300); CALCIUM 7.6 mg/dL (8.5-10.1); CARBON DIOXIDE 24.8 mmol/L (21.0-32.0); CHLORIDE - SERUM 100 mmol/L (98-107); CREATININE - SERUM 0.6 mg/dL (0.6-1.3); GLUCOSE 95 mg/dL (74-106); MAGNESIUM - SERUM 1.7 mg/dL (1.8-2.4); POTASSIUM - SERUM 3.3 mmol/L (3.5-5.1); SODIUM 134 mmol/L (136-145); eGFR NON AFRICAN AMERICAN > 90 mL/min (90-120)
[2019-02-19 03:41] LABS: PHOSPHOROUS 3.4 mg/dL (2.5-4.9); UREA NITROGEN 8 mg/dL (7-18)
--- NOTE | 2019-02-19 06:29 | NUR ---
PATIENT RECEIVED CHG BATH AND FULL LINEN CHANGE AT THIS TIME
--- NOTE | 2019-02-19 06:50 | NUR ---
HERE VISITING WITH PT. PER PT WILL TRANSFER TO REHAB TODAY BUT HAS TO LEAVE HOSPITAL AT THIS TIME AND WILL BE BACK TO PUT IN ORDERS
--- NOTE | 2019-02-19 07:21 | NUR ---
PT RESTING IN BED, VSS AND WNL. PT SITTING UP IN BED ANSWERING QUESTIONS. A&O X4. SHIFT ASSESSMENT PERFORMED. DENIES ANY NEEDS AT THIS TIME, WILL CONT TO FOLLOW POC
--- NOTE | 2019-02-19 08:00 | NUR ---
PT SITTING UP IN BED EATING BREAKFAST. AM MEDICATIONS GIVEN ORDERED. DENIES ANY NEEDS AT THIS TIME, WILL CONT TO FOLLOW POC
--- NOTE | 2019-02-19 09:13 | NUR ---
PT RESTING IN BED ASLEEP. BED ALARM ON, CALL LIGHT WITHIN REACH. WILL CONT TO FOLLOW POC
--- NOTE | 2019-02-19 10:21 | NUR ---
PT RESTING IN BED EATING SNACKS, CALL LIGHT WITHIN REACH, DENIES ANY NEEDS AT THIS TIME, WILL CONT TO FOLLOW POC
--- NOTE | 2019-02-19 11:15 | NUR ---
PLACED A TRANSFER ORDER TO FLOOR. PAGED DUE TO WANTING TO DISCHARGE PT TO REHAB. PER OK TO TRANSFER PT TO THE FLOOR UNTIL CASE MANAGEMENT CAN LOOK INTO REHAB PLACEMENT.
--- NOTE | 2019-02-19 11:30 | NUR ---
REPORT CALLED TO [facility] ON [facility], PT TRANSPORTED VIA BED TO 2212
--- NOTE | 2019-02-19 12:10 | NUR ---
RECEIVED PT FROM AUTOMATIC NAILING MACHINE OPERATOR León MARX, TRANSFERRED TO BED IN ROOM PT STATED IN PAIN, ADMINISTERED 1 TIME ORDER OF TORADOL, CONTINUE WITH PLAN OF CARE
--- NOTE | 2019-02-19 14:14 | NUR ---
CONFIRMED WITH MARLEN SANDHU APN, THAT PT IS TO RESUME ELIQUIS.
[2019-02-19] MEDS ORDERED: ATIVAN1 MG PO (16:32)
[2019-02-19] MEDS ORDERED: NICODERM C1 PATCH .1 TRANSDERM (16:34)
--- NOTE | 2019-02-19 17:12 | MORECARE ---
CASE MANAGEMENT DISCHARGE SUMMARY PATIENT: HARRIET PEPE UNIT: [id number] ADM DATE: 02/14/19 AGE: 63 : 51 SEX: M ROOM/BED: D.2213 AUTHOR: FORREST CARVAJAL PHYSICIAN: REFERRING PHYSICIAN: HIMANSHU ESPINAL MD DATE OF SERVICE: 02/19/19 Discharge Plan Patient Name: HARRIET PEPE Facility: [facility]:[place] : 1955 Planned Disposition: Home or Self Care Anticipated Discharge Date: Discharge Date: 02/19/2019 Expected LOS: Initial Reviewer: [email or web address] Initial Review Date: 02/14/2019 Generated: 02/19/19 6:12 pm Comments DCP- Discharge Planning Updated by [id number]: Kanwal Singh on 02/19/19 4:[address] Patient Name: HARRIET PEPE Admission Status: Urgent Accout number: [id number] Admission Date: 02-14-2019 : 1955 Admission Diagnosis: Attending: HIMANSHU ESPINAL Current LOS: 5 Anticipated DC Date: Planned Disposition: Home or Self Care Primary Insurance: MEDICARE A & B Discharge Planning Comments: PATIENT ADMITTED TO [facility] TODAY. Circuit Breaker Mechanic: Kanwal Singh DCP- Discharge Planning Updated by [email or web address]: Shanique Anton on 02/17/19 3:[address] PATIENT IS NOT GOING TO INPATIENT REHAB TODAY, DR QUINTEROS HAS CANCELLED HIS DISCHARGE DCP- Discharge Planning Updated by [id number]: Shanique Anton on 02/17/19 1:[address] PATIENT TO DC TO INPATIENT REHAB TODAY, I ATTEMPTED TO CALL SHIV () TO LET HER KNOW, I LEFT MESSAGE FOR HER DCP- Discharge Planning Updated by [id number]: Shanique Anton on 02/17/19 9:[address] IMM SERVED AND EXPLAINED, COPY GIVEN TO PATIENT. DCP- Discharge Planning Updated by [id number]: Shanique Anton on 02/15/19 2:[address] Patient Name: HARRIET PEPE Admission Status: Urgent Accout number: [id number] Admission Date: 02-14-2019 : 03-15-1956 Admission Diagnosis: Attending: HIMANSHU ESPINAL Current LOS: 1 Anticipated DC Date: Planned Disposition: Home or Self Care Primary Insurance: MEDICARE A & B Discharge Planning Comments: CM met with patient to complete initial dc planning assessment. CM educated patient on the CM role and verbal consent given by patient to complete assessment. Patient lives at home with his spouse where he was/is independent with his care. At discharge patient plans to return home and feels this is a safe discharge. CM discussed availability of home health, rehab services, and medical equipment. He is unsure where he will do his rehab. He said he will talk to his and let me know tomorrow. 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 He has a walker, BSC, and cane at home.Patient denied known discharge needs at this time. CM will continue to follow and will assist as needed with dc plans/needs. Circuit Breaker Mechanic: Shanique Anton DCPIA - Discharge Planning Initial Assessment Updated by [email or web address]: Shanique Anton on 02/15/19 3:53 pm * Is the patient Alert and Oriented? Yes * How many steps to enter\exit or inside your home? * PCP CLARI * [facility] [address] * Preadmission Environment Home with Family * ADLs Independent * Equipment Bedside Commode Cane Rolling Walker * List name and contact numbers for known caregivers / representatives who currently or will assist patient after discharge: LUIS FELIPE PEPE (SPOUSE) [phone] * Verbal permission to speak to the caregivers and representatives has been obtained from the patient. N/A * Community resources currently utilized None * Additional services required to return to the preadmission environment? Yes * Can the patient safely return to the preadmission environment? Yes * Has this patient been hospitalized within the prior 30 days at any hospital? No Coverage Notice Reviewer: [id number] - Shanique Anton Notice Issued Date-Time: 02/17/2019 9:10 Notice Type: IM Discharge Notice Notice Delivered To: Patient Relationship to Patient: Senior Engineering Associate Name: Delivery Method: HAND - Hand Delivered Zuri Days: Prior Verbal Notification: Recipient Understood Notice: Yes Recipient Signature: Yes Med Rec Note Co-signed by Attending: Coverage Notice Comment: Last DP export: 02/17/19 3:16 Patient Name: HARRIET PEPE Page 00270 at 1712 All edits/amendments must be made on the electronic document DICTATION DATE: 02/19/191711 SAFETY TRAINER: FREDERIC 02/19/191711 RPT#: [id number] DC DATE:02/19/19 STATUS: DIS IN [facility] [address] [place] [address] END OF REPORT
--- NOTE | 2019-02-21 08:52 | OP ---
PATIENT NAME: HARRIET PEPE MEDICAL RECORD: [id number] :51 LOCATION:D.[id number] ADMISSION DATE:02/14/19 SURGEON: HIMANSHU ESPINAL MD DATE OF OPERATION: 02/15/2019 PREOPERATIVE DIAGNOSIS: Degenerative arthritis of the right hip. POSTOPERATIVE DIAGNOSIS: Degenerative arthritis of the right hip. PROCEDURE: Right total hip arthroplasty. SURGEON: Himanshu Espinal MD STRATEGY INTERN: ALAN Dover INTRAOPERATIVE COMPLICATIONS: None. SUMMARY OF PATHOLOGIC FINDINGS: The patient was found to have substantial osteoarthritis along with a very large interposed labral tear. IMPLANTS USED: Kinsman Trident total hip arthroplasty, Trident II titanium shell, Accolade II neck Biolox delta ceramic V40 femoral head standard and a size 36 mm alpha code F 0-degree polyethylene insert. ESTIMATED BLOOD LOSS: 200 cc. OPERATIVE SUMMARY IN DETAIL: After obtaining the appropriate preoperative orthopedic surgery consent as well as anesthetic consultation, evaluation and clearance, the patient was brought to the operating room and placed on the operating table in supine position. After general laryngeal mask airway was administered, the patient was placed in left lateral decubitus position. All pressure points were well padded to include down peroneal pad as well as axillary roll. The patient was held firmly to the operating table using the vacuum pack suction system. Right lower extremity and hip were then prepped and draped in routine sterile fashion. A curvilinear incision was made over the greater trochanter, taken along the IT band which was split in line with fibers. The IT band revealed gluteus medius minimus attachment. There were reflected anteriorly. Hip capsule was then seen, this split in line with the femoral neck. Femoral neck was exposed. The hip was dislocated. Femoral neck cut was made using the femoral neck cutting guide for the Accolade II system. At this point, serial and sequential reaming were done for a size 56 mm Tritanium II cluster cup that was then put into place with excellent capture. No need for screw fixation. Polyethylene was snapped into place and checked. Attention was then turned to the proximal femur. Serial and sequential reaming and broaching were done for a size 9 Accolade II stem. This was then put into the appropriate place. Trial was undertaken. It was felt that the standard was the most appropriate. The standard was tamped into place on the Beck taper. The hip was reduced, taken through range of motion and found to be stable in all planes. Intraoperative radiographs were taken at this point, showed excellent position and placement with good leg length episcopalian. Having completed this, the wound was copiously irrigated, filled with a gram of vancomycin and a gram of tobramycin. The hip capsule was closed with #2 Ethibond followed by reapproximation of gluteus medius minimus back to the greater trochanter using #5 Ethibond transosseously, this was done by Yuriy Nath. IT band was likewise closed by Yuriy Nath followed by further irrigation and then OPERATIVE REPORT [id number] HARRIET PEPE followed by final closure with #1 Vicryl, 2-0 Vicryl and skin betsy. Sterile dressings were applied. The patient was awakened and taken to the recovery room in stable condition. All final needle and sponge counts were correct. TRANSINT:[id number] Voice Confirmation ID: [id number] DOCUMENT ID: [id number] KYLIE PHILLIPS, HIMANSHU OLIVER at 0852 CC: [id number] DICTATION DATE: 02/17/19 1136 FLASH WELDER: 02/17/19 1251 DIS IN 02/19/19 [facility] [address] [place] [address]
== END 2019-02-19 14:44 | DRG 470 ==
LOC: D.SDCHOLD 02-14 10:00 → D.MS 02-14 10:35 → D.SDCHOLD 02-14 12:40 → D.MS 02-14 16:23 → D.ICU 02-17 21:45 → D.MS 02-19 11:34
PROVIDERS: Family Medicine; ADMIT Orthopaedic Surgery; ATTEND Orthopaedic Surgery
PROC: 0SR90J9 Replacement of Right Hip Joint with Synthetic Substitute, Cemented, Open Approach (ICD-10-PCS; principal; 2019-02-14 12:45)
DX: M16.11 Unilateral primary osteoarthritis, right hip (principal); D62 Acute posthemorrhagic anemia; F10.231 Alcohol dependence with withdrawal delirium; I95.9 Hypotension, unspecified; D64.9 Anemia, unspecified; I10 Essential (primary) hypertension

== ENCOUNTER 2019-02-19 15:05 | Inpatient (IN) | payer MEDICARE, BC ==
[~2019-02-19] VITALS: Ht 185.4 cm; Wt 58.5 kg
[~2019-02-19 15:05] MED LIST changes: +COLACE100 MG PO; +ELIQUIS2.5 MG PO; +LISINOPRIL10 MG PO; +MAG-OX 400 MG400 MG PO; +PROTONIX40 MG PO
[2019-02-19 16:19] VITALS: BP 135/92; BMI 17.0
[2019-02-19] MEDS ORDERED: ATIVAN1 MG PO (16:32)
[2019-02-19] MEDS ORDERED: NICODERM C1 PATCH .1 TRANSDERM (16:34)
--- NOTE | 2019-02-19 16:45 | NUR ---
PT ADMITTED TO UNIT AT 1445. PT IS ALERT AND ORIENTED AND SEEMINGLY PLEASANT AT THIS TIME. PT HAS AN IV TO RT FA. PT HAS SCABS/SORES ON RT BIG TOE, LT WICK AND BILAT UE. PT HAS AN INCISION TO RT HIP WITH A BULK DRESSING IN PLACE D/T HEMATOMA DRAINING. PT ADMISSION COMPLETE. PT DENEIS NEEDS. WCTM.
--- NOTE | 2019-02-19 18:14 | NUR ---
PT RESTING IN BED, DENIES NEEDS. WCTM.
--- NOTE | 2019-02-19 20:11 | NUR ---
PATIENT RECEIVED SITTING UP IN BED WATCHING TV. ASSESSMENT & VITAL SIGNS DONE. DRESSING TO RIGHT HIP DRY & INTACT. PATIENT ABLE TO VOICE HIS NEEDS & USE CALL LIGHT WITHIN REACH. BED LOW. ALARM ON. WILL CONTINUE TO MONITOR.
[2019-02-19 20:15] VITALS: BP 136/90
--- NOTE | 2019-02-20 00:53 | NUR ---
I have reviewed this patient and I concur with the Shift Assessment completed by the Licensed Practical Nurse today this shift.
--- NOTE | 2019-02-20 02:10 | NUR ---
PATIENT EYES CLOSED. RESPIRATIONS 18 & EVEN. BED LOW. CALL LIGHT & URINAL WITHIN REACH. WILL CONTINUE TO MONITOR.
--- NOTE | 2019-02-20 05:48 | NUR ---
PATIENT C/O PAIN LEVEL 7 FOR HIP PAIN. NORCO GIVEN. PATIENT IV TO RIGHT FOREARM. PATIENT TOLERATED IT WELL.
[2019-02-20 06:06] LABS: CALC OSMOLALITY 261 mosm/kg (275-300); CALCIUM 8.1 mg/dL (8.5-10.1); CARBON DIOXIDE 24.1 mmol/L (21.0-32.0); CHLORIDE - SERUM 96 mmol/L (98-107); CREATININE - SERUM 0.6 mg/dL (0.6-1.3); GLUCOSE 112 mg/dL (74-106); POTASSIUM - SERUM 3.4 mmol/L (3.5-5.1); SODIUM 131 mmol/L (136-145); UREA NITROGEN 7 mg/dL (7-18); eGFR NON AFRICAN AMERICAN > 90 mL/min (90-120)
[2019-02-20 06:27] LABS: HEMATOCRIT 30.4 % (42.0-54.0); HEMOGLOBIN 10.3 g/dL (13.5-17.5); MCH 33.4 pg (26.0-34.0); MCHC 33.9 g/dL (31.0-37.0); MCV 98.7 fL (80.0-100.0); RBC 3.08 10x6/uL (4.20-6.10); RDW 18.6 % (11.5-14.5)
[2019-02-20 06:28] LABS: PLATELET COUNT 136 10x3/uL (130-400)
[2019-02-20 07:03] LABS: ANISOCYTOSIS 1+; HYPOCHROMASIA 2+; LYMPHOCYTES 22 % (15-50); MONOCYTES 14 % (2-11); NEUTROPHILS 63 % (40-80); PLATELET ESTIMATE NORMAL
--- NOTE | 2019-02-20 08:15 | NUR ---
PT RESTING IN BED WITH EYES OPEN CALL LIGHT IN REACH NO PROBLEMS WILL MONITER
--- NOTE | 2019-02-20 10:30 | NUR ---
I have reviewed this patient and I concur with the Shift Assessment completed by the Licensed Practical Nurse today this shift.
--- NOTE | 2019-02-20 15:40 | NUR ---
PT RESTING IN BED WITH EYES OPEN CALL LIGHT IN REACH NO PROBLEMS WILL MONITER
--- NOTE | 2019-02-20 19:36 | NUR ---
PT SITTING UP IN BED.CL IN REACH. DENIES NEEDS AT THIS TIME. BED IN LOW SIDE RAILS X2. RESP EVEN AND UNLABORED. A/O X4. LUNGS CLEAR. BOWEL ACTIVE X4. WILL CONTINUE TO MONITOR.
[2019-02-20 20:17] VITALS: BP 112/76
--- NOTE | 2019-02-21 02:50 | NUR ---
I have reviewed this patient and I concur with the Shift Assessment completed by the Licensed Practical Nurse today this shift.
[2019-02-21 07:19] LABS: CALC OSMOLALITY 268 mosm/kg (275-300); CALCIUM 7.7 mg/dL (8.5-10.1); CARBON DIOXIDE 28.1 mmol/L (21.0-32.0); CHLORIDE - SERUM 99 mmol/L (98-107); CREATININE - SERUM 0.6 mg/dL (0.6-1.3); GLUCOSE 107 mg/dL (74-106); POTASSIUM - SERUM 3.2 mmol/L (3.5-5.1); SODIUM 135 mmol/L (136-145); UREA NITROGEN 9 mg/dL (7-18); eGFR NON AFRICAN AMERICAN > 90 mL/min (90-120)
[2019-02-21 07:31] LABS: BASOPHILS 0.4 % (0-2); EOSINOPHILS 0.8 % (0-7); HEMATOCRIT 31.5 % (42.0-54.0); HEMOGLOBIN 10.5 g/dL (13.5-17.5); IMMATURE GRANULOCYTES 0.2 % (0-5); LYMPHOCYTES 19.1 % (15-50); MCH 33.2 pg (26.0-34.0); MCHC 33.3 g/dL (31.0-37.0); MCV 99.7 fL (80.0-100.0); MEAN PLATELET VOLUME 9.3 fL (7.4-10.4); NEUTROPHILS 52.5 % (40-80); RBC 3.16 10x6/uL (4.20-6.10); RDW 17.7 % (11.5-14.5); WBC 5.1 10x3/uL (4.8-10.8)
[2019-02-21 07:33] LABS: PLATELET COUNT 189 10x3/uL (130-400)
[2019-02-21 08:00] VITALS: BP 124/81
--- NOTE | 2019-02-21 08:00 | NUR ---
PATIENT IS ALERT/ORIENT. SITTING UP IN BED FOR BREAKFAST. CALL LIGHT WITHIN REACH. VOICES NO NEEDS AT THIS TIME. WILL CONTINUE WITH PLAN OF CARE
--- NOTE | 2019-02-21 09:41 | NUR ---
PATIENT WORKING WITH PHYSICAL THERAPIST. WALKING UP AND DOWN THE HALLWAY WITH WHEELED WALKER. THERAPIST USING GAIT BELT.
[2019-02-21 14:18] VITALS: Ht 185.4 cm; Wt 58.5 kg
--- NOTE | 2019-02-21 14:44 | NUR ---
PATIENT RESTING IN BED AFTER THERAPY. NEEDED ASST TO BATHROOM. MOD ASST OF ONE TO BATHROOM
--- NOTE | 2019-02-21 18:53 | NUR ---
GREETED PATIENT AND INTRODUCED MYSELF HIS NURSE. PATIENT IS LAYING IN BED WATCHING TV. RESPIRATIONS EVEN. NO S/S OF DISTRESS. STATES THAT PAIN IS 6/10 RIGHT HIP. CALL LIGHT IN REACH.
[2019-02-21 19:19] VITALS: BP 127/87
--- NOTE | 2019-02-21 23:56 | NUR ---
PT. RESTING QUIETLY WITH EYES CLOSED. RESPIRTATIONS EVEN. NO S/S OF DISTRESS. SR UP X 2. BED IN LOWEST POSITION. CALL LIGHT IN REACH.
[2019-02-22 08:01] VITALS: BP 129/86
--- NOTE | 2019-02-22 10:57 | NUR ---
PATIENT ADMITTED TO REHAB FROM ACUTE FLOOR.. DR. MONTAGUE IS PATIENT PCP. DME AT HOME IS A WALKER, CANE AND BEDSIDE COMMODE. DISCHARGE PLANS ARE FOR PATIENT TO RETURN HOME WITH HIS SPOUSE AT DISCHARGE. WILL CONTINUE TO FOLLOW WITH PATIENT.
--- NOTE | 2019-02-22 11:26 | NUR ---
ALERT AND ORIENTED. PARTICIPATING IN THERAPY AT THIS TIME. PAIN MED GIVEN. NO DISTRESS NOTED.
--- NOTE | 2019-02-22 16:30 | NUR ---
NO CHANGE IN ASSESSMENT. RESTING WO C/O PAIN. BED ALARM ON. CL IN REACH.
--- NOTE | 2019-02-22 18:56 | NUR ---
GREETED PATIENT AND INTRODUCED MYSELF HIS NURSE. PATIENT IS LAYING IN BED IN SUPINE POSITION. RESPIRATIONS EVEN. NO S/S OF DISTRESS. CALL LIGHT IN REACH. STATES THAT PAIN IS 6/10 IN RIGHT HIP.
[2019-02-22 19:00] VITALS: BP 139/89
--- NOTE | 2019-02-22 23:18 | NUR ---
PT. RESTING QUIETLY. DENIES ANY NEED AT THIS TIME. CALL LIGHT IN REACH.
[2019-02-23 05:45] LABS: BASOPHILS 0.3 % (0-2); EOSINOPHILS 0.9 % (0-7); HEMATOCRIT 30.2 % (42.0-54.0); IMMATURE GRANULOCYTES 0.3 % (0-5); LYMPHOCYTES 22.6 % (15-50); MCH 33.1 pg (26.0-34.0); MCHC 33.1 g/dL (31.0-37.0); MEAN PLATELET VOLUME 8.9 fL (7.4-10.4); MONOCYTES 17.9 % (2-11); RBC 3.02 10x6/uL (4.20-6.10); RDW 16.9 % (11.5-14.5)
[2019-02-23 06:01] LABS: PLATELET COUNT 245 10x3/uL (130-400); WBC 6.6 10x3/uL (4.8-10.8)
[2019-02-23 06:02] LABS: CALCIUM 8.1 mg/dL (8.5-10.1); CARBON DIOXIDE 26.9 mmol/L (21.0-32.0); CHLORIDE - SERUM 98 mmol/L (98-107); CREATININE - SERUM 0.6 mg/dL (0.6-1.3); GLUCOSE 102 mg/dL (74-106); SODIUM 131 mmol/L (136-145); eGFR NON AFRICAN AMERICAN > 90 mL/min (90-120)
[2019-02-23 06:07] LABS: CALC OSMOLALITY 262 mosm/kg (275-300); POTASSIUM - SERUM 3.7 mmol/L (3.5-5.1); UREA NITROGEN 12 mg/dL (7-18)
--- NOTE | 2019-02-23 07:25 | NUR ---
ALERT AND OREINTED. RESTING WO DISTRESS. RESP EVEN AND UNLABORED. CL IN REACH.
[2019-02-23 07:48] VITALS: BP 137/89
--- NOTE | 2019-02-23 11:44 | NUR ---
AMBULATING IN DURAN WITH PT AT THIS TIME.
--- NOTE | 2019-02-23 13:09 | NUR ---
Nutrition Follow-up: Diet: Regular PO intake: 80% x 7 meals; patient reports good appetite. Reports last BM was this morning. Wt: 129# (02/21/19). Labs, meds, and nursing skin assessment all reviewed. Continue current nutrition regimen. RD Following.
--- NOTE | 2019-02-23 15:29 | NUR ---
NO CHANGE IN ASSESSMENT. RESTING WO DISTRESS. RESP EVEN AND UNLABORED. CL IN REACH.
--- NOTE | 2019-02-23 15:45 | NUR ---
CARE TEAM MEETING: PATIENT DOING WELL IN THERAPY. SPOKE WITH SPOUSE AND SHE WOULD LIKE A REFERRAL TO [facility] IF PATIENT IS UNABLE TO RETURN HOME DUE TO SHE WORKS LONG HOURS AND HE WOULD BE BY HIMSELF. WILL CONTINUE TO FOLLOW WITH PATIENT AND WILL ASSIT WITH DISCHARGE NEEDS.
--- NOTE | 2019-02-23 19:51 | NUR ---
GREETED PATIENT AND INTRODUCED MYSELF HIS NURSE. ADMINISTERED PRN PAIN MEDICATION FOR PAIN 6/10 IN RIGHT HIP. RESPIRATIONS EVEN. NO S/S OF DISTRESS. CALL LIGHT IN REACH.
[2019-02-23 21:32] VITALS: BP 94/60
--- NOTE | 2019-02-24 04:20 | NUR ---
PT. RESTING QUIETLY WITH EYES CLOSED. RESPIRATIONS EVEN. NO S/S OF DISTRESS. CALL LIGHT IN REACH.
--- NOTE | 2019-02-24 08:00 | NUR ---
PATIENT IS ALERT/ORIENT. SITTING UP IN BED TO EAT BREAKFAST. CALL LIGHT WITHIN REACH. VOICES NO NEEDS AT THIS TIME. WILL CONTINUE WITH PLAN OF CARE
[2019-02-24 08:34] VITALS: BP 135/86
--- NOTE | 2019-02-24 11:00 | NUR ---
PATIENT SITTING UP IN WHEELCHAIR AT BEDSIDE AFTER THERAPY. CALL LIGHT WITHIN REACH. VOICES NO NEEDS AT THIS TIME.
--- NOTE | 2019-02-24 13:50 | NUR ---
PRN PAIN MEDICATION GIVEN FOR RIGHT HIP PAIN PER PATIENT REQUEST
--- NOTE | 2019-02-24 20:00 | NUR ---
PATIENT RECEIVED SITTING UP IN BED WATCHING TV. ASSESSMENT & VITAL SIGNS DONE. BED LOW. ALARM ON. CALL LIGHT WITHIN REACH. WILL CONTINUE TO MONITOR.
[2019-02-24 21:12] VITALS: BP 108/70
--- NOTE | 2019-02-25 02:12 | NUR ---
I have reviewed this patient and I concur with the Shift Assessment completed by the Licensed Practical Nurse today this shift.
--- NOTE | 2019-02-25 02:56 | NUR ---
PATIENT EYES CLOSED. RESPIRATIONS 18 & EVEN. BED LOW. ALARM ON. CALL LIGHT WITHIN REACH. WILL CONTINUE TO MONITOR.
[2019-02-25 07:45] LABS: BASOPHILS 0.7 % (0-2); EOSINOPHILS 1.7 % (0-7); HEMATOCRIT 30.3 % (42.0-54.0); HEMOGLOBIN 9.9 g/dL (13.5-17.5); IMMATURE GRANULOCYTES 0.4 % (0-5); LYMPHOCYTES 25.3 % (15-50); MCH 33.1 pg (26.0-34.0); MCHC 32.7 g/dL (31.0-37.0); MCV 101.3 fL (80.0-100.0); MEAN PLATELET VOLUME 8.7 fL (7.4-10.4); MONOCYTES 11.8 % (2-11); NEUTROPHILS 60.1 % (40-80); RBC 2.99 10x6/uL (4.20-6.10); RDW 16.5 % (11.5-14.5); WBC 5.4 10x3/uL (4.8-10.8)
[2019-02-25 07:48] LABS: CALC OSMOLALITY 272 mosm/kg (275-300); CALCIUM 8.5 mg/dL (8.5-10.1); CARBON DIOXIDE 29.2 mmol/L (21.0-32.0); CHLORIDE - SERUM 101 mmol/L (98-107); CREATININE - SERUM 0.7 mg/dL (0.6-1.3); GLUCOSE 95 mg/dL (74-106); POTASSIUM - SERUM 3.9 mmol/L (3.5-5.1); SODIUM 136 mmol/L (136-145); UREA NITROGEN 14 mg/dL (7-18); eGFR NON AFRICAN AMERICAN > 90 mL/min (90-120)
[2019-02-25 07:52] LABS: PLATELET COUNT 305 10x3/uL (130-400)
[2019-02-25 08:00] VITALS: BP 128/78
--- NOTE | 2019-02-25 08:15 | NUR ---
PT RESTING IN BED WITH EYES OPEN CALL LIGHT IN REACH NO PROBLEMS WILL MONITER
--- NOTE | 2019-02-25 18:02 | NUR ---
PT RESTING IN BED WITH EYES OPEN CALL LIGHT IN REACH NO PROBLEMS WILL MONITER
[2019-02-25 20:00] VITALS: BP 100/59
--- NOTE | 2019-02-25 20:00 | NUR ---
PATIENT RECEIVED SITTING UP IN BED WATCHING TV. ASSESSMENT & VITAL SIGNS DONE. NO C/O PAIN OR DISTRESS. BED LOW. CALL LIGHT & URINAL WITHIN REACH. ALARM ON. WILL CONTINUE TO MONITOR.
[2019-02-25 20:33] VITALS: BP 169/70
--- NOTE | 2019-02-26 02:17 | NUR ---
I have reviewed this patient and I concur with the Shift Assessment completed by the Licensed Practical Nurse today this shift.
--- NOTE | 2019-02-26 03:56 | NUR ---
PATIENT EYES CLOSED. RESPIRATIONS 18 & EVEN. BED LOW. ALARM ON. CALL LIGHT WITHIN REACH. WILL CONTINUE TO MONITOR.
[2019-02-26 08:00] VITALS: BP 137/89
--- NOTE | 2019-02-26 08:00 | NUR ---
PATIENT IS ALERT/ORIENT. CALL LIGHT WITHIN REACH. VOICES NO NEEDS AT THIS TIME. WILL CONTINUE WITH PLAN OF CARE
--- NOTE | 2019-02-26 11:45 | NUR ---
PATIENT IN REHAB ROOM. WORKING WITH PHYSICAL THERAPIST. DENIES ANY PAIN/DISC AT THIS TIME.
--- NOTE | 2019-02-26 14:58 | NUR ---
PATIENT USING URINAL AT BEDSIDE. SPILLS URINAL WHEN USING.
--- NOTE | 2019-02-26 16:06 | NUR ---
PATIENT RESTING IN BED AFTER THERAPY. CALL LIGHT WITHIN REACH
--- NOTE | 2019-02-26 19:07 | NUR ---
PATIENT RECIEVED SITTING UP IN BED WATCHING TV. ASSESSMENT & VITAL SIGNS DONE. CALL LIGHT & URINAL WITHIN REACH. ALARM ON. WILL CONTINUE TO MONITOR.
[2019-02-26 20:00] VITALS: BP 114/62
--- NOTE | 2019-02-27 02:57 | NUR ---
I have reviewed this patient and I concur with the Shift Assessment completed by the Licensed Practical Nurse today this shift.
--- NOTE | 2019-02-27 04:36 | NUR ---
QUIET HOURS. PT IN SHOWER ASSISTED BY NURSE ANDRES. NO SIGNS OF ACUTE DISTRESS NOTED.
--- NOTE | 2019-02-27 04:52 | NUR ---
PATIENT SHOWER GIVEN. PATIENT RETURNED TO BED. ALARM ON. CALL LIGHT & URINAL WITHIN REACH. WILL CONTINUE TO MONITOR.
[2019-02-27 08:00] VITALS: BP 129/79
--- NOTE | 2019-02-27 08:30 | NUR ---
PATIENT IS ALERT/ORIENT. CALL LIGHT WITHIN REACH. VOICES NO NEEDS AT THIS TIME. WILL CONTINUE WITH PLAN OF CARE
--- NOTE | 2019-02-27 09:40 | NUR ---
PATIENT REQUESTED PRN PAIN MEDICATION FOR RIGHT HIP PAIN/DISC. GIVEN. THIS NURSE TALKED TO PATIENT IN REGARDS OF WALKING INTO THE BATHROOM TO URINATE INSTEAD OF USING URINAL AT BEDSIDE. PATIENT WILL BE DISCHARGING HOME THIS WEEK. PATIENT AGREED.
--- NOTE | 2019-02-27 14:05 | NUR ---
PATIENT TURNED OIL FIRE SPECIALIST LIGHT TO GO TO THE BATHROOM. STAND BY ASST WITH WHEELED WALKER.
--- NOTE | 2019-02-27 15:19 | NUR ---
PATIENT HELPED TO BATHROOM. MODERATE ASST FROM WHEELCHAIR ONTO TOILET
--- NOTE | 2019-02-27 15:39 | NUR ---
PRN PAIN MEDICATION GIVEN PER PATIENT REQUEST FOR RIGHT HIP INCSION PAIN
--- NOTE | 2019-02-27 19:07 | NUR ---
PT IS RESTING IN BED WITH EYES OPEN. ALERT AND ORIENTED X 3. DENIES ACUTE PAIN OR DISCOMFORT AT THIS TIME. NO NEEDS VOICED. PT STATED: "THAT GIRL TOOK MY URINAL AWAY TODAY, SO I WILL CALL YOU WHEN I NEED TO PEE." SR'S ARE UP X 2 IN BED. CALL LIGHT AND BEDSIDE TABLE ARE WITHIN EASY REACH.
[2019-02-27 20:00] VITALS: BP 136/83
--- NOTE | 2019-02-27 21:30 | NUR ---
PT ASSISTED TO THE BATHROOM WITH SBA. NO FURTHER NEEDS VOICED.
--- NOTE | 2019-02-28 00:50 | NUR ---
I have reviewed this patient and I concur with the Shift Assessment completed by the Licensed Practical Nurse today this shift.
--- NOTE | 2019-02-28 03:41 | NUR ---
QUIET HOURS. PT LYING IN BED EYES CLOSED RESTING QUIETLY. RR EVEN AND UNLABORED. CL IN REACH. BED ALARM ON
[2019-02-28 05:46] LABS: BASOPHILS 0.7 % (0-2); EOSINOPHILS 1.5 % (0-7); HEMATOCRIT 33.2 % (42.0-54.0); HEMOGLOBIN 10.5 g/dL (13.5-17.5); IMMATURE GRANULOCYTES 0.7 % (0-5); MCH 32.4 pg (26.0-34.0); MCHC 31.6 g/dL (31.0-37.0); MCV 102.5 fL (80.0-100.0); MEAN PLATELET VOLUME 8.5 fL (7.4-10.4); MONOCYTES 9.9 % (2-11); NEUTROPHILS 60.2 % (40-80); PLATELET COUNT 355 10x3/uL (130-400); RBC 3.24 10x6/uL (4.20-6.10); RDW 16.3 % (11.5-14.5); WBC 6.1 10x3/uL (4.8-10.8)
[2019-02-28 06:12] LABS: CALC OSMOLALITY 276 mosm/kg (275-300); CALCIUM 8.8 mg/dL (8.5-10.1); CARBON DIOXIDE 28.8 mmol/L (21.0-32.0); CHLORIDE - SERUM 102 mmol/L (98-107); CREATININE - SERUM 0.8 mg/dL (0.6-1.3); GLUCOSE 87 mg/dL (74-106); POTASSIUM - SERUM 4.3 mmol/L (3.5-5.1); SODIUM 139 mmol/L (136-145); UREA NITROGEN 12 mg/dL (7-18); eGFR NON AFRICAN AMERICAN > 90 mL/min (90-120)
[2019-02-28 07:54] VITALS: BP 128/87
--- NOTE | 2019-02-28 10:01 | RHP ---
PATIENT: HARRIET PEPE MEDICAL RECORD: [id number] ACCOUNT: [id number] LOCATION:[facility]1113 : 51 ADMISSION DATE: 02/19/19 REHABILITATION HISTORY AND PHYSICAL EXAMINATION POST ADMISSION PHYSICIAN EXAMINATION DATE OF ADMISSION: 02/19/2019. ADMITTING DIAGNOSIS: Joint replacement of right total hip arthroscopy due to degenerative changes in his right hip. HISTORY OF PRESENT ILLNESS: The patient is a 63-year-old gentleman who is admitted to the hospital for an elective right total hip due to increasing pain in his right hip due to degenerative arthritis. He has had some postop confusion, impulsive behaviors, acute blood loss anemia requiring 2 units packed red blood cells, supplemental O2 need, monitoring closely for DTs with history of alcohol abuse. He has had some hypotensive episodes, adjusting blood pressure medicines. He has decondition, weakness, poor safety awareness, debility, impaired mobility, gait disturbance. He has high fall risk and self-care deficits. These are all barriers to his discharge home. He lives at home with his , was independent with mobility and ADLs. He is currently set up for mod assist with ADLs. He and his would like him to return home at his prior level of function or better after getting discharged from rehabilitation. COMORBIDITIES: Include falls, hypoxia, dyspnea, hypotension, hyperglycemia, fluid overload, dehydration, electrolyte imbalance, edema, impaired skin integrity, fatigue, malaise bleeding, anemia, respiratory distress, history of loss of appetite, change in cognition, malnutrition, weight loss, UTI, incontinence, postop pain, postop infection, and postop wound dehiscence. PAST MEDICAL HISTORY: Significant for emphysema, anemia, pancytopenia, constipation, arthritis. He has had a history of alcohol addiction and tobacco abuse. PAST SURGICAL HISTORY: Includes knee scope and excision of the lymph node. ALLERGIES: CODEINE. CURRENT MEDICATIONS: Include a Nicoderm patch to apply daily, multivitamin tablet daily, lisinopril 10 mg daily, Protonix 40 mg daily, Mag-Ox 400 mg b.i.d., Colace 100 mg b.i.d., Eliquis 2.5 mg b.i.d., lorazepam 1 mg q.6 hours as needed, [place] 7.5/325 as needed. HABITS: He does have a history of alcohol and tobacco use. FAMILY HISTORY: Noncontributory. SOCIAL HISTORY: The patient hopes to return back home and get back to his prior level of functioning. REVIEW OF SYSTEMS: GENERAL: He does complain of weakness and fatigue. HEENT: He denies cold, cough, or congestion. CARDIOVASCULAR: He denies chest pain. HISTORY AND PHYSICAL [id number] HARRIET PEPE PHYSICAL EXAMINATION: VITAL SIGNS: Stable, afebrile. GENERAL: An elderly gentleman in no acute distress, alert upon exam. HEENT: Normocephalic and atraumatic. Mucosa moist. NECK: Supple. No lymphadenopathy. LUNGS: Clear in upper [place]. No wheeze, rhonchi, or rales. HEART: Regular rate and rhythm. He does have a II/ systolic ejection murmur. ABDOMEN: Soft, benign, nondistended. Positive bowel sounds times 4. EXTREMITIES: No clubbing, cyanosis, or edema. Postop swelling appears normal. NEUROLOGIC: He does have 3/5 muscular strength in his proximal muscles of his thighs. LABORATORY DATA: White count 6.0, H&H of 10 and 30, platelet count is noted to be 136. His sodium is 131, potassium 3.4, BUN and creatinine 7 and 0.6, and blood sugar is noted to be 112. ASSESSMENT: This is a 63-year-old gentleman with rehab working diagnosis of status post right total hip arthroplasty secondary to degenerative arthritis and pain. The patient has potential to make improvement. We instituted the following multidisciplinary therapies include, but not limited to physical, occupational, respiratory, speech, nutritional services, prosthetics and orthotics. Given his complex medical condition and risk for more complications, rehabilitation services cannot be provided at a low level of care such as [facility] facility. PLAN: [facility]. [facility] to include the following disciplines: A. Physical therapy to improve gait, all transfer skills and bed mobility to a modified independent level. B. Occupational therapy to a modified independent level. C. Case management to assist with discharge planning and placement options. D. Nutrition to assist with nutritional needs. E. Rehabilitation nursing to assist in monitoring the patient's underlying medical conditions and to assist with any type of bowel or bladder management. 2. The patient's current medications and medical care will be continued. 3. The patient will be placed on standard fall precautions. 4. The patient's estimated length of stay is approximately 7-10 days. 5. We will discuss this patient during care team staff meeting this week. TRANSINT:[id number] Voice Confirmation ID: [id number] DOCUMENT ID: [id number] JOAN notes whether there has been none or any medical/functional change since admission: - No change since pre-admission screen. JOAN attests patient continues to be appropriate for IRF: - Continues to appropriate. HISTORY AND PHYSICAL [id number] HARRIET PEPE,GATO JACOBS MD at 1001 CC: [id number] DICTATION DATE: 02/20/19 1115 ASSEMBLER WET WASH: 02/20/19 1212 ADM IN [place] [id number] [place] [id number]
--- NOTE | 2019-02-28 15:12 | NUR ---
PT RESTING IN BED WITH EYES OPEN CALL LIGHT IN REACH NO PROBLEMS WILL MONITER
--- NOTE | 2019-02-28 18:53 | NUR ---
PT RESTING IN BED WITH EYES OPEN CALL LIGHT IN REACH NO PROBLEMS WILL MONITER
--- NOTE | 2019-02-28 19:41 | NUR ---
GREETED PATIENT AND INTRODUCED MYSELF HIS NURSE. PATIENT IS LAYING IN BED WATCHING TV. RESPIRATIONS EVEN. NO S/S OF DISTRESS. DENIES ANY FURTHER NEEDS AT THIS TIME. CALL LIGHT IN REACH.
[2019-02-28 21:12] VITALS: BP 116/73
--- NOTE | 2019-03-01 02:40 | NUR ---
PT. RESTING QUIETLY WITH EYES CLOSED. RESPIRATONS EVEN. NO S/S OF DISTRESS. CALL LIGHT IN REACH.
--- NOTE | 2019-03-01 07:58 | NUR ---
RESTING WO DISTRESS. RESP EVEN AND UNLABORED. CL IN REACH.
[2019-03-01 08:27] VITALS: BP 138/89
--- NOTE | 2019-03-01 12:25 | NUR ---
SITTING IN WC FOR LUNCH. DRESSING TO FEET WET DURING SHOWER. CHANGED DRESSING. CHAIR ALARM ON. CL IN REACH.
--- NOTE | 2019-03-01 12:28 | NUR ---
SITTING IN WC FOR LUNCH. NO C/O PAIN. CL IN REACH.
--- NOTE | 2019-03-01 13:40 | NUR ---
Nutrition Follow-up: Diet: Regular PO intake: 75-100%; reports good appetite. Last BM: 02/27/19. Wt: 129# (02/21/19), no new wt Labs, meds, and nursing skin assessment reviewed Continue current nutrition regimen. RD Following.
--- NOTE | 2019-03-01 16:33 | NUR ---
NO CHANGE IN ASSESSMENT. NO DISTRESS NOTED. CL IN REACH.
--- NOTE | 2019-03-01 19:09 | NUR ---
GREETED PATIENT AND INTRODUCED MYSELF HIS NURSE. PATIENT IS LAYING IN BED RESTING AT THIS TIME. RESPIRATIONS EVEN. NO S/S OF DISTRESS. STATES THAT PAIN IN RIGHT HIP 10/27. WILL ADMINISTER PRN PAIN MEDICATION. CALL LIGHT IN REACH.
[2019-03-01 21:36] VITALS: BP 110/69
--- NOTE | 2019-03-02 01:31 | NUR ---
PT. RESTING QUIETLY WITH EYES CLOSED. RESPIRATIONS EVEN. NO S/S OF DISTRESS. SR UP X 2. BED IN LOWEST POSITION. CALL LIGHT IN REACH.
--- NOTE | 2019-03-02 05:58 | NUR ---
PT. RESTING QUIETLY WITH EYES CLOSED AFTER ADMINISTRATION OF MORNING MEDICATIONS. RESPIRATIONS EVEN. NO S/S OF DISTRESS. CALL LIGHT IN REACH.
[2019-03-02 06:16] LABS: CALC OSMOLALITY 273 mosm/kg (275-300); CALCIUM 8.8 mg/dL (8.5-10.1); CARBON DIOXIDE 30.5 mmol/L (21.0-32.0); CHLORIDE - SERUM 103 mmol/L (98-107); CREATININE - SERUM 0.8 mg/dL (0.6-1.3); GLUCOSE 90 mg/dL (74-106); POTASSIUM - SERUM 4.5 mmol/L (3.5-5.1); SODIUM 137 mmol/L (136-145); UREA NITROGEN 13 mg/dL (7-18); eGFR NON AFRICAN AMERICAN > 90 mL/min (90-120)
[2019-03-02 06:17] LABS: BASOPHILS 0.4 % (0-2); HEMATOCRIT 32.2 % (42.0-54.0); HEMOGLOBIN 10.4 g/dL (13.5-17.5); IMMATURE GRANULOCYTES 0.6 % (0-5); LYMPHOCYTES 34.6 % (15-50); MCH 33.3 pg (26.0-34.0); MCHC 32.3 g/dL (31.0-37.0); MCV 103.2 fL (80.0-100.0); MEAN PLATELET VOLUME 8.5 fL (7.4-10.4); MONOCYTES 12.6 % (2-11); NEUTROPHILS 49.8 % (40-80); PLATELET COUNT 355 10x3/uL (130-400); RBC 3.12 10x6/uL (4.20-6.10); RDW 16.3 % (11.5-14.5); WBC 5.4 10x3/uL (4.8-10.8)
[2019-03-02 08:34] VITALS: BP 130/80
--- NOTE | 2019-03-02 10:08 | NUR ---
PARTICIPATED IN THERAPY THIS AM. NO C/O PAIN.
--- NOTE | 2019-03-02 12:05 | NUR ---
PATIENT SITTING UP AT BEDSIDE TO EAT LUNCH. CALL LIGHT WITHIN REACH. VOICES NO NEEDS AT THIS TIME.
--- NOTE | 2019-03-02 13:38 | NUR ---
PRN PAIN MEDICATION GIVEN PER PATIENT REQUEST
--- NOTE | 2019-03-02 14:16 | NUR ---
SURGICAL CLIPS REMOVED FROM RIGHT HIP WITHOUT DIFFICULTY. STIR STRIPES APPLED
--- NOTE | 2019-03-02 19:00 | NUR ---
GREETED PATIENT AND INTRODUCED MYSELF HIS NURSE. PATIENT IS LAYING IN BED WATCHING TV. RESPIRATIONS EVEN. NO S/S OF DISTRESS. CALL LIGHT IN REACH. DENIES ANY FURTHER NEEDS AT THIS TIME. STATES THAT PAIN IS 6/10 IN RIGHT HIP AT THIS TIME.
[2019-03-02 19:30] VITALS: BP 125/84
--- NOTE | 2019-03-02 23:41 | NUR ---
PT. RESTING QUIETLY WITH EYES CLOSED. RESPIRATIONS EVEN. NO S/S OF DISTRESS. SR UP X 2. BED IN LOWEST POSITION. CALL LIGHT IN REACH.
[2019-03-03 08:00] VITALS: BP 113/69
[2019-03-03] MEDS ORDERED: NORCO-7.5 PO (08:30)
--- NOTE | 2019-03-03 09:31 | NUR ---
PATIENT DISCHARGING HOME TODAY WITH FAMILY.[facility] WILL PROVIDE [facility]AP[facility] AT HOME. NO NEW DME NEEDED AT THIS TIME. DR. MONTAGUE 03/16/19 @ 12:00, DR. ESPINAL 03/15/19 @ 10:45. PATIENT CHOICE FORM (HANDOUT GIVEN ) AND IMFM FORMS SIGNED AND COPY GIVEN TO PATIENT. DISCHARGE INSTRUCTIONS FAXED TO PCP, HOME HEALTH AND REVIEWED WITH PATIENT AND SPOUSE.
--- NOTE | 2019-03-03 14:00 | NUR ---
PT DISCHARGED HOME WITH VIA WHEELCHAIR DISCHARGE SUMMARY AND MEDS REVIEWED WITH PT NO QUESTIONS OR CONCERNS.
--- NOTE | 2019-03-03 15:57 | NUR ---
PT RESTING IN BED WITH EYES OPEN CALL LIGHT IN REACH NO PROBLEMS WILL MONITER
== END 2019-03-03 17:27 | disposition home health service (06) | DRG 560 ==
LOC: D.REHAB 15:05
PROVIDERS: ADMIT Emergency Medicine; ATTEND Emergency Medicine
DX: Z47.1 Aftercare following joint replacement surgery (principal); E46 Unspecified protein-calorie malnutrition; N39.0 Urinary tract infection, site not specified; D62 Acute posthemorrhagic anemia; Z96.641 Presence of right artificial hip joint; R09.02 Hypoxemia; I95.9 Hypotension, unspecified; R06.00 Dyspnea, unspecified; R73.9 Hyperglycemia, unspecified; E87.70 Fluid overload, unspecified; E86.0 Dehydration; E87.8 Other disorders of electrolyte and fluid balance, not elsewhere classified; R60.9 Edema, unspecified; R06.03 Acute respiratory distress; R63.4 Abnormal weight loss; T81.31XD Disruption of external operation (surgical) wound, not elsewhere classified, subsequent encounter; G89.18 Other acute postprocedural pain; R53.1 Weakness; M16.11 Unilateral primary osteoarthritis, right hip

== ENCOUNTER 2019-03-10 19:33 | Inpatient (IN) | payer MEDICARE, BC ==
[~2019-03-10] VITALS: Ht 185.4 cm; Wt 61.2 kg
--- NOTE | ~2019-03-10 | HEMODYNAMI ---
PATIENT:HARRIET PEPE MEDICAL RECORD: [id number] : 51 LOCATION:[id number] ADMISSION DATE: 03/10/19 Generatedon:03/11/201912:09 Patient name: HARRIET PEPE Patient #: [id number] SSN: D OB: 1955 Date of study: 03/11/2019 Page: Of Hemodynamic Procedure Report Patient Data Patient Demographics First Name: HARRIET Gender: Male Last Name: MY : 1955 [facility] Initial: NICK Age: 63 year(s) Patient #: [id number] Race: Unknown Additional ID: [id number] Contact details Address: [facility] [address] [place] Zip code: [address] Past Medical History Allergies Allergen Reaction Date Comments Reported Codeine 03/11/2019 Admission Admission Data Admission Date: 03/10/2019 Admission Time: 22:04 Room #: D.2201 Height (in.): 73 BSA: 1.82 (m2) Height (cm.): 185.42 BMI: 17.81 (kg/m2) Weight (lbs.): 135 Weight (kg.): 61.23 Procedure Procedure Types Cath Procedure Peripheral Cath Diagnostic Procedure Retread Technician Peripheral Procedures Miscellaneous Aspiration/Injection (Joint) Procedure Description Procedure Date Procedure Date: 03/11/2019 Procedure Start Time: 11:54 Procedure Staff Name Function Chasidy Luevano RT Agronomy Technician Zak Hinds RT Agronomy Technician Nick Elias MD Performing Physician Procedure Data Cath Procedure Fluoroscopy Diagnostic fluoroscopy Total fluoroscopy Time: 0.1 time: 0.1 min min Diagnostic fluoroscopy Total fluoroscopy dose: 1 dose: 1 mGy mGy Hemodynamics Rest BSA: 1.82 (m2) O2 Consumption: Estimated: 247.52 (ml/min) O2 Consumption indexed : Estimated:136 (ml/min/m) Pre Cath Intra NCS Post Cath Procedure Log Time Note 11:45:12 Patient Height : 73 inches 11:45:18 Patient Weight : 135 lbs 11:45:50 Time tracking: Regular hours (M-F 7:00 - 5:00) 11:53:07 Patient allergic to Codeine 11:53:21 hip aspiration on rt hip 11:53:25 - 11:53:34 SAFE-T PLUS MYELOGRAM TRAY opened to sterile field. 11:53:39 - 11:53:45 --------ALL STOP TIME OUT------ 11:53:45 Physician arrived 11:53:46 Final Timeout: patient, procedure, and site verified with staff and physician. All members of the team are in agreement. 11:54:21 Right Hip was prepped with betadine and draped in sterile fashion. 11:54:28 Full Disclosure recording started 11:54:28 Procedure started. 11:54:37 Local anesthetic to Right Hip with Lidocaine 1% by Nick Elias MD.INITIAL ACCESS ONLY 12:03:11 Procedure ended.(Physican Out) 12:03:52 Fluoroscopy time 00.10 minutes. 12:03:55 Fluoroscopy dose: 1 mGy 12:03:55 Flurop Dose total: 1 12:04:13 bandaide applied to site.site stable 12:04:29 pt sent to room fluid collected and sent to lab Device Usage Item Name Manufacture Quantity Catalog Hospital Part Current Minimal Lot# / Number Charge Number Stock Stock Serial# Code SAFE-T [employer] 1 [id number] PLUS MYELOGRAM TRAY Signature Audit [place] Stage Time Signature Unsigned Intra-Procedure 03/11/2019 Zak 12:09:51 PM [facility] RT (R) (CV) [facility] [address] [place] [address]
[~2019-03-10 19:33] MED LIST changes: +ATIVAN1 MG PO; +NICODERM C1 PATCH .1 TRANSDERM; +NORCO-7.5 PO
--- NOTE | 2019-03-10 19:47 | NUR ---
TRAUMA BAND [id number]
[2019-03-10 20:10] LABS: BASOPHILS 0.1 % (0-2); EOSINOPHILS 0.3 % (0-7); HEMATOCRIT 32.5 % (42.0-54.0); HEMOGLOBIN 10.6 g/dL (13.5-17.5); IMMATURE GRANULOCYTES 0.3 % (0-5); LYMPHOCYTES 12.7 % (15-50); MCH 33.5 pg (26.0-34.0); MCHC 32.6 g/dL (31.0-37.0); MCV 102.8 fL (80.0-100.0); MEAN PLATELET VOLUME 8.3 fL (7.4-10.4); MONOCYTES 8.9 % (2-11); NEUTROPHILS 77.7 % (40-80); PLATELET COUNT 248 10x3/uL (130-400); RBC 3.16 10x6/uL (4.20-6.10); RDW 16.1 % (11.5-14.5); WBC 7.2 10x3/uL (4.8-10.8)
--- NOTE | 2019-03-10 20:19 | NUR ---
PT GIVEN URINAL AND BLANKETS, DENIES ANY FURTHER NEEDS AT THIS TIME. CALL LIGHT WITHIN REACH, WILL CONTINUE TO MONITOR.
[2019-03-10 20:23] LABS: ANION GAP 8.9 mmol/L (8-16); CALCIUM 8.8 mg/dL (8.5-10.1); CARBON DIOXIDE 29.9 mmol/L (21.0-32.0); CREATININE - SERUM 1.2 mg/dL (0.6-1.3); POTASSIUM - SERUM 4.8 mmol/L (3.5-5.1)
[2019-03-10 20:29] LABS: ALBUMIN 3.2 g/dL (3.4-5.0); BILIRUBIN - TOTAL 0.91 mg/dL (0.2-1.3); PROTEIN - SERUM 6.8 g/dL (6.4-8.2)
--- NOTE | 2019-03-10 21:30 | NUR ---
WOUND CULTURE SENT TO LAB
--- NOTE | 2019-03-10 23:40 | NUR ---
ARRIVED TO ROOM 2201 VIA STRETCHER AND HOSPITAL STAFF. IN GOWN WITH ID BRACELET ON, HAS CELL PHONE, GLASSES ON PERSON. ALERT AND ORIENTED. ABLE TO VOICE ALL NEEDS. COMPLAINTS OF PAIN TO RIGHT HIP AT THIS TIME. MEDICATION GIVEN PER ORDERS. IV TO LEFT FOREARM HAS NS AT 125/HR VIA PUMP. SKIN IS C/D. HAS MULTIPLE DISCOLORATIONS AND SCRAPES TO UPPER BODY, STATES IT IS FROM HIS FALL. CONGRUENT WITH FALL. RLE HAS 1+ EDEMA NOTED. ANSWERS QUESTIONS APPROPRIATELY. WILL NOTE ANY CHANGE.
--- NOTE | 2019-03-10 23:59 | NUR ---
REQUESTED PAIN MEDICATION, MORPHINE GIVEN PER ORDERS. WILL NOTE ANY CHANGE.
[2019-03-11] VITALS (7 sets, daily range): BP systolic 108–135; BP diastolic 62–84; Ht 185.4 cm; Wt 61.2 kg
--- NOTE | 2019-03-11 03:33 | NUR ---
TEMP OF 100.4 NOTED. TYLENOL GIVEN PER ORDERS. WILL NOTE ANY CHANGE.
[2019-03-11 07:27] LABS: CALCIUM 8.6 mg/dL (8.5-10.1); CARBON DIOXIDE 25.5 mmol/L (21.0-32.0); CHLORIDE - SERUM 100 mmol/L (98-107); GLUCOSE 91 mg/dL (74-106); MAGNESIUM - SERUM 1.7 mg/dL (1.8-2.4); PHOSPHOROUS 3.7 mg/dL (2.5-4.9); SODIUM 134 mmol/L (136-145)
[2019-03-11 07:28] LABS: APTT 35.2 SECONDS (22.8-39.4); CALC OSMOLALITY 269 mosm/kg (275-300); CREATININE - SERUM 0.8 mg/dL (0.6-1.3); INR 1.2 (0.85-1.17); POTASSIUM - SERUM 3.9 mmol/L (3.5-5.1); PROTIME 14.6 SECONDS (11.6-15.0); UREA NITROGEN 18 mg/dL (7-18); eGFR NON AFRICAN AMERICAN > 90 mL/min (90-120)
[2019-03-11 07:41] LABS: HEMATOCRIT 28.1 % (42.0-54.0); HEMOGLOBIN 9.6 g/dL (13.5-17.5); LYMPHOCYTES 29.8 % (15-50); MCH 34.5 pg (26.0-34.0); MCHC 34.2 g/dL (31.0-37.0); MCV 101.1 fL (80.0-100.0); MEAN PLATELET VOLUME 8.3 fL (7.4-10.4); NEUTROPHILS 62.4 % (40-80); PLATELET COUNT 248 10x3/uL (130-400); RBC 2.78 10x6/uL (4.20-6.10); RDW 15.6 % (11.5-14.5)
[2019-03-11 07:45] LABS: WBC 5.1 10x3/uL (4.8-10.8)
--- NOTE | 2019-03-11 08:12 | NUR ---
PATIENT RECIEVED RESTING WITH EYES OPEN, REPORTS PAIN OF 6 TO RIGHT HIP. MORPHINE GIVEN FOR PAIN. DRESSING TO RIGHT HIP C/D/I WITH REDNESS, WARMTH, EDEMA NOTED TO INCISION. INCISION IS POST HIP REPLACEMENT 3 WEEKS AGO.
[2019-03-11 09:31] LABS: ERYTHROCYTE SEDIMENTATION RATE 62 mm/hr (0-20)
--- NOTE | 2019-03-11 12:09 | MORECARE ---
CASE MANAGEMENT DISCHARGE SUMMARY PATIENT: HARRIET PEPE UNIT: [id number] ADM DATE: 03/10/19 AGE: 63 : 53 SEX: M ROOM/BED: D.2201 AUTHOR: FORREST CARVAJAL PHYSICIAN: REFERRING PHYSICIAN: GORAN SALEH MD DATE OF SERVICE: 03/11/19 Discharge Plan Patient Name: HARRIET PEPE [facility] [facility] 1955 Planned Disposition: Anticipated Discharge Date: Discharge Date: Expected LOS: Initial Reviewer: [email or web address] Initial Review Date: 03/11/2019 Generated: 03/11/19 1:09 pm DCPIA - Discharge Planning Initial Assessment Updated by [email or web address]: Kanwal Singh on 03/11/19 12:09 pm * Is the patient Alert and Oriented? Yes * PCP MONTAGUE * Pharmacy [facility] [address] * Preadmission Environment Home with Family * ADLs Independent * Other Equipment WALKER * Community resources currently utilized Home Health * Please name any agencies selected above. [facility] * Additional services required to return to the preadmission environment? No * Can the patient safely return to the preadmission environment? Yes * Has this patient been hospitalized within the prior 30 days at any hospital? Yes Patient Name: HARRIET PEPE Page [id number] at 1209 All edits/amendments must be made on the electronic document DICTATION DATE: 03/11/19 120 EDI PROGRAMMER: FREDERIC 03/11/19 1209 RPT#: [id number] DC DATE: STATUS: ADM IN [facility] [address] [place] [address] END OF REPORT
--- NOTE | 2019-03-11 13:28 | NUR ---
PATIENT RETURNED FROM IR POST RIGHT HIP ASPIRATION. BANDAID TO RIGHT ANTERIOR HIP. INCISON TO LATERAL HIP CLOSED WITH NO DRAINAGE NOTED. NO AREAS OF PACKING NOTED. INCISION IS RED AND WARM TO TOUCH WITH EDEMA NOTED.
[2019-03-11 16:04] LABS: MACROPHAGES BF 2 %; NEUT - BF 90 %
--- NOTE | 2019-03-11 16:24 | NUR ---
Rehab Prescreening Consult recieved and the chart has been reviewed. This patient just discharged from the ARU with a hip fracture S/P ORIF. He is a new admit after a fall at home wnd has a possible new fracture to the same hip. Rehab will follow his progress to see what his plan of care will be. Arabella Scott RN Clinical liaison, rehab
--- NOTE | 2019-03-11 17:12 | NUR ---
PATIENT RESTING WITH NO NEEDS VOICED, PAIN CONTROLED WITH MORPHINE. CL IN REACH
--- NOTE | 2019-03-11 19:45 | NUR ---
PATIENT SITTING UP IN BED. HAS REDNESS TO THE RIGHT HIP. PATIENT STATES HIS PAIN IS ABOUT A 7 WHEN HE MOVES HIS LEG. IV TO THE L FOREARM,NO REDNESS OR SWELLING,NS@50. BED RAILS X2. CALL LIGHT AND BEDSIDE TABLE WITHIN REACH. ENCOURAGED TO CALL WITH ANY NEEDS.
[2019-03-12] VITALS: BP 135/80
[2019-03-12 04:00] VITALS: BP 143/85
[2019-03-12 06:56] LABS: CALC OSMOLALITY 270 mosm/kg (275-300); CALCIUM 8.3 mg/dL (8.5-10.1); CARBON DIOXIDE 27.8 mmol/L (21.0-32.0); CHLORIDE - SERUM 102 mmol/L (98-107); CREATININE - SERUM 0.7 mg/dL (0.6-1.3); GLUCOSE 112 mg/dL (74-106); MAGNESIUM - SERUM 1.3 mg/dL (1.8-2.4); POTASSIUM - SERUM 3.5 mmol/L (3.5-5.1); SODIUM 136 mmol/L (136-145); eGFR NON AFRICAN AMERICAN > 90 mL/min (90-120)
[2019-03-12 06:57] LABS: UREA NITROGEN 7 mg/dL (7-18)
[2019-03-12 07:11] LABS: BASOPHILS 0.2 % (0-2); EOSINOPHILS 1.2 % (0-7); HEMATOCRIT 28.4 % (42.0-54.0); HEMOGLOBIN 9.3 g/dL (13.5-17.5); IMMATURE GRANULOCYTES 0.2 % (0-5); LYMPHOCYTES 26.6 % (15-50); MCH 33.1 pg (26.0-34.0); MCHC 32.7 g/dL (31.0-37.0); MCV 101.1 fL (80.0-100.0); MEAN PLATELET VOLUME 8.3 fL (7.4-10.4); MONOCYTES 12.3 % (2-11); NEUTROPHILS 59.5 % (40-80); PLATELET COUNT 203 10x3/uL (130-400); RBC 2.81 10x6/uL (4.20-6.10); RDW 15.8 % (11.5-14.5); WBC 4.3 10x3/uL (4.8-10.8)
[2019-03-12 08:19] VITALS: BP 148/78
--- NOTE | 2019-03-12 10:35 | NUR ---
PATIENT RECIEVED THIS AM RESTING WITH NO NEEDS VOICED, NO DRAINAGE TO RIGHT HIP, INCISION DRY WITH NO OPEN AREAS NOTED. PAIN RELIEVED WITH MORPHINE. PATIENT IS ALERT AND ORIENTED. ASSISTED UP TO CHAIR WITH PT. FALL PRECAUTIONS IN USE. CL IN REACH
[2019-03-12 14:29] VITALS: BP 115/65
--- NOTE | 2019-03-12 15:16 | NUR ---
PATIENT RESTING WITH NO NEEDS VOICED. PAIN CONTROLED WITH MORPHINE. CL IN REACH
[2019-03-12 16:26] VITALS: BP 100/58
[2019-03-12 20:00] VITALS: BP 112/67
--- NOTE | 2019-03-12 20:45 | NUR ---
AWAKE,ALERT,WATCHING TV WITH NO COMPALITNS VOICED. RESP EVEN AND UNALBORED NO DISTRESS NOTED. IV TO LEFT WRIST WITHOUT REDNESS OR EDEMA NOTED. RIGHT HIP RED AND EDEMATOUS AROUD INCISION SITE. NO DRAINAGE NOTED. CL IN REACH.
[2019-03-13] VITALS: BP 146/86
--- NOTE | 2019-03-13 03:00 | NUR ---
I have reviewed this patient and I concur with the Shift Assessment completed by the Licensed Practical Nurse today this shift.
[2019-03-13 04:00] VITALS: BP 137/89
[2019-03-13 06:07] LABS: BASOPHILS 0.2 % (0-2); EOSINOPHILS 3.5 % (0-7); HEMATOCRIT 29.3 % (42.0-54.0); HEMOGLOBIN 9.5 g/dL (13.5-17.5); IMMATURE GRANULOCYTES 0.2 % (0-5); LYMPHOCYTES 33.3 % (15-50); MCH 33.2 pg (26.0-34.0); MCHC 32.4 g/dL (31.0-37.0); MCV 102.4 fL (80.0-100.0); MEAN PLATELET VOLUME 8.5 fL (7.4-10.4); MONOCYTES 12.6 % (2-11); NEUTROPHILS 50.2 % (40-80); PLATELET COUNT 225 10x3/uL (130-400); RBC 2.86 10x6/uL (4.20-6.10); RDW 15.8 % (11.5-14.5); WBC 4.3 10x3/uL (4.8-10.8)
[2019-03-13 06:21] LABS: CALCIUM 8.4 mg/dL (8.5-10.1); CARBON DIOXIDE 28.1 mmol/L (21.0-32.0); CHLORIDE - SERUM 105 mmol/L (98-107); CREATININE - SERUM 0.7 mg/dL (0.6-1.3); GLUCOSE 93 mg/dL (74-106); MAGNESIUM - SERUM 1.4 mg/dL (1.8-2.4); SODIUM 140 mmol/L (136-145); eGFR NON AFRICAN AMERICAN > 90 mL/min (90-120)
[2019-03-13 06:22] LABS: CALC OSMOLALITY 275 mosm/kg (275-300); PHOSPHOROUS 3.8 mg/dL (2.5-4.9); POTASSIUM - SERUM 4.3 mmol/L (3.5-5.1); UREA NITROGEN 5 mg/dL (7-18)
--- NOTE | 2019-03-13 08:10 | NUR ---
PATIENT RECIEVED FROM PREVIOUS NURSE RESTING IN BED WITH NO NEEDS VOICED. RIGHT HIP WITH MILD REDNESS, EDEMA FIRM TO TOUCH, INCISION DRY WITH NO OPEN AREAS NOTED. PAIN RELIEVED WITH MORPHINE. IV TO LEFT HAND WITH NO REDNESS OR EDEMA. RESPIRATIONS REGULAR AND NONLABORED. CL IN REACH
[2019-03-13 11:29] LABS: % SATURATION 30 % (15-55); IRON 54 ug/dl (35-150); TOTAL IRON BIND CAPACITY 178 ug/dl (260-445); UNSAT IRON BIND CAPACITY 124 ug/dl (150-375)
[2019-03-13 12:00] VITALS: BP 118/81
[2019-03-13 12:52] LABS: APPEARANCE CLEAR (CLEAR); BILIRUBIN NEGATIVE (NEGATIVE); COLOR STRAW (YELLOW); GLUCOSE NEGATIVE (NEGATIVE); KETONE NEGATIVE (NEGATIVE); NITRITE NEGATIVE (NEGATIVE); PROTEIN NEGATIVE (NEGATIVE); SPECIFIC GRAVITY 1.005 (1.005-1.020); UROBILINOGEN NORMAL (NORMAL)
[2019-03-13 17:01] VITALS: BP 126/84
[2019-03-13 20:00] VITALS: BP 112/84
--- NOTE | 2019-03-13 20:03 | NUR ---
AWAKE,WATCHING TV WITH NO COMPLAINTS VOICED. IV TO LEFT WRIST INTACT WITHOUT REDNESS OR EDEMA NOTED. RIGHT HIP CONTINUES WITH REDNESS AND EDEMA. WARM TO TOUCH. NO DRAINAGE NOTED. CL IN REACH
[2019-03-14] VITALS: BP 146/90
[2019-03-14 04:00] VITALS: BP 149/91
[2019-03-14 04:49] LABS: BASOPHILS 0.2 % (0-2); EOSINOPHILS 3.5 % (0-7); HEMATOCRIT 29.2 % (42.0-54.0); HEMOGLOBIN 9.6 g/dL (13.5-17.5); IMMATURE GRANULOCYTES 0.2 % (0-5); LYMPHOCYTES 31.2 % (15-50); MCH 33.6 pg (26.0-34.0); MCHC 32.9 g/dL (31.0-37.0); MCV 102.1 fL (80.0-100.0); MEAN PLATELET VOLUME 8.6 fL (7.4-10.4); MONOCYTES 10.1 % (2-11); NEUTROPHILS 54.8 % (40-80); PLATELET COUNT 258 10x3/uL (130-400); RBC 2.86 10x6/uL (4.20-6.10); RDW 15.6 % (11.5-14.5); WBC 5.2 10x3/uL (4.8-10.8)
[2019-03-14 04:59] LABS: CALC OSMOLALITY 269 mosm/kg (275-300); CALCIUM 8.3 mg/dL (8.5-10.1); CHLORIDE - SERUM 102 mmol/L (98-107); CREATININE - SERUM 0.7 mg/dL (0.6-1.3); GLUCOSE 92 mg/dL (74-106); MAGNESIUM - SERUM 1.4 mg/dL (1.8-2.4); SODIUM 136 mmol/L (136-145); UREA NITROGEN 6 mg/dL (7-18); eGFR NON AFRICAN AMERICAN > 90 mL/min (90-120)
--- NOTE | 2019-03-14 07:31 | NUR ---
REC'D IN BED AWAKE AND ALERT. RESP EVEN AND UNLABORED WITH NO DISTRESS NOTED. CAN EXPRESS NEEDS AND WANTS. NO C/O NOTED OR VOICED. ASSESSMENT COMPLETED. C/L IN REACH AT BEDSIDE.
[2019-03-14 07:39] VITALS: BP 139/89
[2019-03-14 08:52] LABS: ERYTHROCYTE SEDIMENTATION RATE 35 mm/hr (0-20)
--- NOTE | 2019-03-14 10:21 | NUR ---
I have reviewed this patient and I concur with the Shift Assessment completed by the Licensed Practical Nurse today this shift.
--- NOTE | 2019-03-14 10:42 | NUR ---
WAS MEDICATED WITH MORPHINE PER ORDERS FOR C/O GENERALIZED PAIN. C/L IN REACH AT BEDSIDE.
--- NOTE | 2019-03-14 10:43 | NUR ---
Right hip I&D with possible ORIF today by Dr. Boothe.
[2019-03-14 11:46] VITALS: BP 133/81
--- NOTE | 2019-03-14 15:32 | NUR ---
Nutrition follow-up: Pt NPO for I&D today PO intake of a regular diet has been ~80% average of the last 9 meals Labs reviewed Wt: 135# RDN following.
[2019-03-14 15:46] VITALS: BP 119/64
--- NOTE | 2019-03-14 19:16 | NUR ---
IN BED WITH TELEVISION ON, ABLE TO VOICE ALL NEEDS. SHOWS NO S/S OF ANY ACUTE DISTRESS, IV TO LEFT WRIST PATENT WITH FLUIDS INFUSING PER ORDER. DOES COMPLAIN OF PAIN TO HIP, MEDICATION WILL BE GIVEN ACCORDINGLY. WILL NOTE ANY CHANGE.
[2019-03-14 20:00] VITALS: BP 128/86
[2019-03-15] VITALS: BP 142/85
[2019-03-15 04:00] VITALS: BP 155/93
[2019-03-15 04:34] LABS: BASOPHILS 0.2 % (0-2); EOSINOPHILS 2.9 % (0-7); HEMATOCRIT 30.9 % (42.0-54.0); HEMOGLOBIN 10.3 g/dL (13.5-17.5); IMMATURE GRANULOCYTES 0.2 % (0-5); LYMPHOCYTES 28.2 % (15-50); MCH 33.6 pg (26.0-34.0); MCHC 33.3 g/dL (31.0-37.0); MCV 100.7 fL (80.0-100.0); MEAN PLATELET VOLUME 8.6 fL (7.4-10.4); MONOCYTES 13.1 % (2-11); NEUTROPHILS 55.4 % (40-80); PLATELET COUNT 267 10x3/uL (130-400); RBC 3.07 10x6/uL (4.20-6.10); RDW 15.6 % (11.5-14.5); WBC 5.2 10x3/uL (4.8-10.8)
[2019-03-15 05:04] LABS: CALC OSMOLALITY 268 mosm/kg (275-300); CALCIUM 8.4 mg/dL (8.5-10.1); CARBON DIOXIDE 28.1 mmol/L (21.0-32.0); CHLORIDE - SERUM 101 mmol/L (98-107); CREATININE - SERUM 0.7 mg/dL (0.6-1.3); GLUCOSE 95 mg/dL (74-106); MAGNESIUM - SERUM 1.4 mg/dL (1.8-2.4); PHOSPHOROUS 3.9 mg/dL (2.5-4.9); POTASSIUM - SERUM 3.9 mmol/L (3.5-5.1); SODIUM 136 mmol/L (136-145); UREA NITROGEN 5 mg/dL (7-18); eGFR NON AFRICAN AMERICAN > 90 mL/min (90-120)
--- NOTE | 2019-03-15 06:17 | NUR ---
I have reviewed this patient and I concur with the Shift Assessment completed by the Licensed Practical Nurse today this shift.
--- NOTE | 2019-03-15 07:45 | NUR ---
REC'D IN BED AWAKE AND ALERT. RESP EVEN AND UNLABORED WITH NO DISTRESS NOTED CAN EXPRESS NEEDS AND WANTS. ASSESSMENT COMPLETED. C/L IN REACH AT BEDSIDE.
--- NOTE | 2019-03-15 08:05 | NUR ---
MEDICATED WITH MORPHINE FOR C/O PAIN RATING 6/10 ON PAIN SCALE. C/L IN REACH AT BEDSIDE.
[2019-03-15 09:16] VITALS: BP 143/91
--- NOTE | 2019-03-15 15:11 | NUR ---
I have reviewed this patient and I concur with the Shift Assessment completed by the Licensed Practical Nurse today this shift.
[2019-03-15 17:11] VITALS: BP 128/86
[2019-03-15 20:00] VITALS: BP 148/85
[2019-03-16] VITALS: BP 141/75
--- NOTE | 2019-03-16 03:12 | NUR ---
I have reviewed this patient and I concur with the Shift Assessment completed by the Licensed Practical Nurse today this shift.
[2019-03-16 04:00] VITALS: BP 139/83
[2019-03-16 05:10] LABS: BASOPHILS 0.1 % (0-2); HEMATOCRIT 30.2 % (42.0-54.0); HEMOGLOBIN 9.8 g/dL (13.5-17.5); IMMATURE GRANULOCYTES 0.3 % (0-5); LYMPHOCYTES 16.3 % (15-50); MCH 32.7 pg (26.0-34.0); MCHC 32.5 g/dL (31.0-37.0); MCV 100.7 fL (80.0-100.0); MEAN PLATELET VOLUME 8.6 fL (7.4-10.4); MONOCYTES 19.7 % (2-11); NEUTROPHILS 62.6 % (40-80); PLATELET COUNT 293 10x3/uL (130-400); RDW 15.5 % (11.5-14.5)
[2019-03-16 05:11] LABS: WBC 7.3 10x3/uL (4.8-10.8)
[2019-03-16 05:19] LABS: ALBUMIN 2.5 g/dL (3.4-5.0); ALKALINE PHOSPHATASE 98 U/L (46-116); ALT (SGPT) 14 U/L (10-68); BILIRUBIN - TOTAL 0.62 mg/dL (0.2-1.3); CALC OSMOLALITY 262 mosm/kg (275-300); CALCIUM 8.3 mg/dL (8.5-10.1); CARBON DIOXIDE 28.6 mmol/L (21.0-32.0); CHLORIDE - SERUM 98 mmol/L (98-107); CREATININE - SERUM 0.6 mg/dL (0.6-1.3); GLUCOSE 105 mg/dL (74-106); POTASSIUM - SERUM 3.7 mmol/L (3.5-5.1); PROTEIN - SERUM 6.2 g/dL (6.4-8.2); SODIUM 132 mmol/L (136-145); UREA NITROGEN 6 mg/dL (7-18); eGFR NON AFRICAN AMERICAN > 90 mL/min (90-120)
--- NOTE | 2019-03-16 07:00 | NUR ---
ALERT AND ORIENTED, RESTING IN BED. NO C/O PAIN. NO S/S OF ACUTE DISTRESS NOTED. POD#1 RIGHT HIP FX, DRESSING C/D/I. ON 2L O2, NC. IV TO LEFT WRIST, NS INFUSING @ 50ML/HR. SITE PATENT WITHOUT REDNESS OR SWELLING. DENIES ANY NEEDS AT THIS TIME. CALL LIGHT IN REACH. WILL CONTINUE TO MONITOR.
[2019-03-16 09:22] VITALS: BP 149/83
--- NOTE | 2019-03-16 11:52 | NUR ---
Rehab Prescreening Consult recieved and the chart has been reviewed. He meets criteria and will be accepted on POD #3 Thursday. Discussed at length with the CM Loyda Anton in the IDT meeting. Arabella Scott RN Clinical Liaison, Rehab
--- NOTE | 2019-03-16 13:10 | OP ---
PATIENT NAME: HARRIET PEPE MEDICAL RECORD: [id number] :51 LOCATION:[facility] ADMISSION DATE:03/10/19 SURGEON: HIMANSHU ESPINAL MD DATE OF OPERATION: 03/15/2019 PREOPERATIVE DIAGNOSES: 1. Greater trochanteric fracture -- periprosthetic. 2. Large hematoma of the right hip. POSTOPERATIVE DIAGNOSES: 1. Greater trochanteric fracture -- periprosthetic. 2. Large hematoma of the right hip. PROCEDURE: 1. Open reduction internal fixation of greater trochanteric fracture. 2. Evacuation of hematoma. SURGEON: Himanshu Espinal MD ANESTHESIA: General. INTRAOPERATIVE COMPLICATIONS: None. SUMMARY OF PATHOLOGIC FINDINGS: While the patient did sustain a fracture of the greater trochanter, the fracture had not retracted and was amenable to high tensile strength suture fixation. The patient is very thin and I felt like the claw plate was going to result in the need for further surgery. The hip prosthesis itself appeared to be stable. OPERATIVE SUMMARY IN DETAIL: After obtaining the appropriate preoperative orthopedic surgery consent as well as anesthetic consultation, evaluation, and clearance, the patient was brought to the operating room and placed on the operating table in supine position. After general laryngeal mask airway was administered, the patient was placed in a left lateral decubitus position. All pressure points were well padded. He was held firmly to the operating table using the vacuum pack suction system. Right lower extremity and hip were then prepped and draped in routine sterile fashion. Incision was made over the previously made incision, taken down on the IT band. The IT band was split in line with fibers of the IT band. At this point, cultures were taken of the hematoma. The hematoma was found to be primarily between the IT band and the lateral aspect of the greater trochanter. Copious pulsatile lavage irrigation then ensued and all hematoma was removed. Evaluation of the greater trochanter showed no evidence of retraction. The fracture itself was nondisplaced compared to radiographs that were taken upon arrival. At this point, #5 Ethibond was utilized for a dspogc-jo-hwzdo in cervical as well as multiple uyjoxo-ig-gtjpk sutures for reapproximation of both the bone and tendon back to the greater trochanter. Having completed this, the IT band was reapproximated with #5 Ethibond as well. A #1 Vicryl was then followed by skin betsy for final closure. Sterile dressings were applied. The patient was awakened and taken to the recovery room in stable condition. All final needle and sponge counts were correct. TRANSINT:[id number] Voice Confirmation ID: [id number] DOCUMENT ID: [id number] OPERATIVE REPORT [id number] HARRIET PEPE MD, HIMANSHU OLIVER at 1310 CC: [id number] DICTATION DATE: 03/15/19 1311 JEWEL BLOCKER AND SAWYER: 03/15/19 1621 ADM IN [facility] [address] [place] [address]
[2019-03-16 13:13] VITALS: BP 104/61
--- NOTE | 2019-03-16 15:41 | NUR ---
OT NOTE: PT COMPLETED BED MOB TASKS WITH MIN A. PT COMPLETED UE AROM AXS. PT COMPLETED UB HYGIENE TASKS WITH SET UP. THANK YOU, RIO FRASER
--- NOTE | 2019-03-16 15:44 | NUR ---
I have reviewed this patient and I concur with the Shift Assessment completed by the Licensed Practical Nurse today this shift.
--- NOTE | 2019-03-16 15:59 | MORECARE ---
CASE MANAGEMENT DISCHARGE SUMMARY PATIENT: HARRIET PEPE UNIT: [id number] ADM DATE: 03/10/19 AGE: 63 : 53 SEX: M ROOM/BED: D.2201 AUTHOR: WEIDOC PHYSICIAN: REFERRING PHYSICIAN: GORAN SALEH MD DATE OF SERVICE: 03/16/19 Discharge Plan Patient Name: HARRIET PEPE Facility: [facility]:[place] : 1955 Planned Disposition: Anticipated Discharge Date: Discharge Date: Expected LOS: Initial Reviewer: [email or web address] Initial Review Date: 03/11/2019 Generated: 03/16/19 4:58 pm Comments DCP- Discharge Planning Updated by [id number]: Shanique Anton on 03/16/19 2:[address] IMM SERVED AND EXPLAINED COPY PLACED IN CHART DCPIA - Discharge Planning Initial Assessment Updated by [email or web address]: Kanwal Singh on 03/11/19 12:09 pm * Is the patient Alert and Oriented? Yes * PCP [place] * Pharmacy [facility] [address] * Preadmission Environment Home with Family * ADLs Independent * Other Equipment WALKER * Community resources currently utilized Home Health * Please name any agencies selected above. [facility] * Additional services required to return to the preadmission environment? No * Can the patient safely return to the preadmission environment? Yes * Has this patient been hospitalized within the prior 30 days at any hospital? Yes Coverage Notice Reviewer: [email or web address] Dana Singh Notice Issued Date-Time: 03/11/2019 12:09 Notice Type: Patient Choice Letter Notice Delivered To: Patient Relationship to Patient: Devulcanizer Tender Name: Delivery Method: HAND - Hand Delivered Zuri Days: Prior Verbal Notification: Recipient Understood Notice: Yes Recipient Signature: Yes Med Rec Note Co-signed by Attending: Coverage Notice Comment: FRIDA RESUME [facility] Reviewer: [email or web address] Dana Anton Notice Issued Date-Time: 03/16/2019 15:40 Notice Type: IM Discharge Notice Notice Delivered To: Patient Relationship to Patient: Devulcanizer Tender Name: Delivery Method: HAND - Hand Delivered Zuri Days: Prior Verbal Notification: Recipient Understood Notice: Yes Recipient Signature: Yes Med Rec Note Co-signed by Attending: Coverage Notice Comment: Last DP export: 03/11/19 11:09 Patient Name: HARRIET PEPE Page [id number] at 1559 All edits/amendments must be made on the electronic document DICTATION DATE: 03/16/191557 COLD STRIP FEEDER: FREDERIC 03/16/191557 RPT#: [id number] DC DATE: STATUS: ADM IN [facility] [address] [place] [address] END OF REPORT
[2019-03-16 16:45] VITALS: BP 114/68
--- NOTE | 2019-03-16 18:17 | NUR ---
ALERT AND ORIENTED, RESTING IN BED WITH EYES OPEN. NO C/O PAIN. NO S/S OF ACUTE DISTRESS NOTED. DENIES ANY NEEDS AT THIS TIME. CALL LIGHT IN REACH. WILL CONTINUE TO MONITOR.
[2019-03-16 19:46] VITALS: BP 98/61
[2019-03-17] VITALS: BP 104/66
--- NOTE | 2019-03-17 02:29 | NUR ---
RESTING IN BED DRESSING TO RIGHT HIP CDI. IV TO LEFT WRIST IN PLACE AND PATENT NO REDNESS NOTED STATED NO PAIN AT SITE. TELEMERTY IN PLACE.
[2019-03-17 04:00] VITALS: BP 129/69
[2019-03-17 06:20] LABS: BASOPHILS 0.1 % (0-2); EOSINOPHILS 0.9 % (0-7); HEMATOCRIT 29.9 % (42.0-54.0); HEMOGLOBIN 9.9 g/dL (13.5-17.5); IMMATURE GRANULOCYTES 0.1 % (0-5); LYMPHOCYTES 11.1 % (15-50); MCH 33.8 pg (26.0-34.0); MCHC 33.1 g/dL (31.0-37.0); MEAN PLATELET VOLUME 8.8 fL (7.4-10.4); MONOCYTES 14.7 % (2-11); NEUTROPHILS 73.1 % (40-80); PLATELET COUNT 274 10x3/uL (130-400); RBC 2.93 10x6/uL (4.20-6.10); RDW 15.5 % (11.5-14.5); WBC 7.8 10x3/uL (4.8-10.8)
[2019-03-17 06:30] LABS: ALBUMIN 2.3 g/dL (3.4-5.0); ALKALINE PHOSPHATASE 97 U/L (46-116); ALT (SGPT) 15 U/L (10-68); BILIRUBIN - TOTAL 0.55 mg/dL (0.2-1.3); CALC OSMOLALITY 270 mosm/kg (275-300); CALCIUM 8.5 mg/dL (8.5-10.1); CARBON DIOXIDE 27.1 mmol/L (21.0-32.0); CHLORIDE - SERUM 101 mmol/L (98-107); CREATININE - SERUM 0.6 mg/dL (0.6-1.3); GLUCOSE 113 mg/dL (74-106); POTASSIUM - SERUM 3.5 mmol/L (3.5-5.1); SODIUM 136 mmol/L (136-145); UREA NITROGEN 7 mg/dL (7-18); eGFR NON AFRICAN AMERICAN > 90 mL/min (90-120)
--- NOTE | 2019-03-17 06:50 | NUR ---
ALERT AND ORIENTED, RESTING IN BED EYES OPEN. C/O HEADACHE. NO S/S OF ACUTE DISTRESS NOTED. DENIES ANY NEEDS AT THIS TIME. CALL LIGHT IN REACH. WILL CONTINUE TO MONITOR.
[2019-03-17 08:42] VITALS: BP 129/75
[2019-03-17 12:29] VITALS: BP 111/72
--- NOTE | 2019-03-17 12:39 | NUR ---
OT NOTE: PT DOING WELL; CONTINUES TO C/O HEAD AND NECK PAIN. TRANSFERRED TO CHAIR WITH MIN ASSIST; REQUIRES FREQ CUES FOR TTWB; PT HAPPY THAT HE IS ABLE TO MOVE LEG TODAY. CONTINUED EDUCATION FOR WT BEARING PRECAUTIONS/HIP PRECAUTIONS. PT ABLE TO PERFORM UPPER BODY ADLS WITH SET UP. PT HOPEFUL HE WILL GET TO GO TO REHAB TOMORROW. ALLEN CAN, OTR/L
[2019-03-17 17:35] VITALS: BP 103/64
--- NOTE | 2019-03-17 17:43 | NUR ---
I have reviewed this patient and I concur with the Shift Assessment completed by the Licensed Practical Nurse today this shift.
--- NOTE | 2019-03-17 20:01 | NUR ---
OT NOTE: PT COMPLETED BED MOB TASKS SBA. PT COMPLETED POSITIONING IN BED WITH MIN A. PT COMPLETED HYGIENE TASKS WITH MIN A. PT FOLLOWED WT BEARING STATUS PRECAUTIONS WITH CUES. THANK YOU,RIO FRASER
[2019-03-17 20:29] VITALS: BP 106/62
--- NOTE | 2019-03-18 00:22 | NUR ---
PATIENT IS ALERT AND ORENTED ABLE TO VOICE NEEDS AND WATS TO STAFF. O2 AT 2L, PRN. IV TO LEFT WRIST WITH NO REDNESS NOTED DENIES PAIN AT IV SITE, POST OP DAY 2 OF RIGHT HIP WITH DRESSING CDI TO RIGHT HIP. ON ELIQUIS FOR DVT PROVENTTION. NO S/S OF DISTRESS CALL LIGHT AND WATER IN REACH.
[2019-03-18 01:22] VITALS: BP 137/66
[2019-03-18 06:20] VITALS: BP 126/76
[2019-03-18 07:31] LABS: BASOPHILS 0.2 % (0-2); EOSINOPHILS 1.6 % (0-7); HEMATOCRIT 28.1 % (42.0-54.0); HEMOGLOBIN 9.1 g/dL (13.5-17.5); MCH 33.2 pg (26.0-34.0); MCHC 32.4 g/dL (31.0-37.0); MCV 102.6 fL (80.0-100.0); MONOCYTES 13.2 % (2-11); PLATELET COUNT 307 10x3/uL (130-400); RBC 2.74 10x6/uL (4.20-6.10); RDW 15.4 % (11.5-14.5)
[2019-03-18 07:32] LABS: ALBUMIN 2.1 g/dL (3.4-5.0); ALKALINE PHOSPHATASE 88 U/L (46-116); ALT (SGPT) 17 U/L (10-68); BILIRUBIN - TOTAL 0.34 mg/dL (0.2-1.3); CALC OSMOLALITY 273 mosm/kg (275-300); CALCIUM 8.3 mg/dL (8.5-10.1); CARBON DIOXIDE 25.7 mmol/L (21.0-32.0); CHLORIDE - SERUM 104 mmol/L (98-107); CREATININE - SERUM 0.7 mg/dL (0.6-1.3); GLUCOSE 101 mg/dL (74-106); POTASSIUM - SERUM 3.6 mmol/L (3.5-5.1); PROTEIN - SERUM 5.9 g/dL (6.4-8.2); SODIUM 138 mmol/L (136-145); UREA NITROGEN 7 mg/dL (7-18); eGFR NON AFRICAN AMERICAN > 90 mL/min (90-120)
[2019-03-18 07:33] LABS: WBC 5.7 10x3/uL (4.8-10.8)
--- NOTE | 2019-03-18 08:59 | NUR ---
WAS MEDICATED FOR C/O PAIN RATING 6/10 ON PAIN SCALE WITH MOPRHINE PER ORDERS. C/L IN REACH AT BEDSIDE.
[2019-03-18 09:01] VITALS: BP 134/86
--- NOTE | 2019-03-18 12:06 | MORECARE ---
CASE MANAGEMENT DISCHARGE SUMMARY PATIENT: HARRIET PEPE UNIT: [id number] ADM DATE: 03/10/19 AGE: 63 : 53 SEX: M ROOM/BED: D.2201 AUTHOR: WEIDOC PHYSICIAN: REFERRING PHYSICIAN: GORAN SALEH MD DATE OF SERVICE: 03/18/19 Discharge Plan Patient Name: HARRIET PEPE Facility: [facility]:[place] : 1955 Planned Disposition: Anticipated Discharge Date: Discharge Date: Expected LOS: Initial Reviewer: [email or web address] Initial Review Date: 03/11/2019 Generated: 03/18/19 1:05 pm Comments DCP- Discharge Planning Updated by [id number]: Shanique Anton on 03/18/19 11:[address] PATIENT TO BE DICHARGED TO INPATIENT REHAB TODAY DCP- Discharge Planning Updated by [id number]: Shanique Anton on 03/16/19 2:[address] IMM SERVED AND EXPLAINED COPY PLACED IN CHART DCPIA - Discharge Planning Initial Assessment Updated by [email or web address]: Kanwal Singh on 03/11/19 12:09 pm * Is the patient Alert and Oriented? Yes * PCP [place] * Pharmacy [facility] [address] * Preadmission Environment Home with Family * ADLs Independent * Other Equipment WALKER * Community resources currently utilized Home Health * Please name any agencies selected above. [facility] * Additional services required to return to the preadmission environment? No * Can the patient safely return to the preadmission environment? Yes * Has this patient been hospitalized within the prior 30 days at any hospital? Yes Coverage Notice Reviewer: [id number] Dana Singh Notice Issued Date-Time: 03/11/2019 12:09 Notice Type: Patient Choice Letter Notice Delivered To: Patient Relationship to Patient: Tree Trimmer Name: Delivery Method: HAND - Hand Delivered Zuri Days: Prior Verbal Notification: Recipient Understood Notice: Yes Recipient Signature: Yes Med Rec Note Co-signed by Attending: Coverage Notice Comment: FRIDA RESUME [facility] Reviewer: [id number] Dana Anton Notice Issued Date-Time: 03/16/2019 15:40 Notice Type: IM Discharge Notice Notice Delivered To: Patient Relationship to Patient: Tree Trimmer Name: Delivery Method: HAND - Hand Delivered Zuri Days: Prior Verbal Notification: Recipient Understood Notice: Yes Recipient Signature: Yes Med Rec Note Co-signed by Attending: Coverage Notice Comment: Last DP export: 03/16/19 2:59 Patient Name: HARRIET PEPE Page [phone] at 1206 All edits/amendments must be made on the electronic document DICTATION DATE: 03/18/191204 BODY DESIGN CHECKER: FREDERIC 03/18/191204 RPT#: [id number] DC DATE: STATUS: ADM IN [facility] [address] [place] [address] END OF REPORT
--- NOTE | 2019-03-18 12:49 | NUR ---
I have reviewed this patient and I concur with the Shift Assessment completed by the Licensed Practical Nurse today this shift.
--- NOTE | 2019-03-18 13:21 | NUR ---
NUTRITION F/U PT WITH 100% INTAKE RECENT MEALS. WILL CONTINUE TO PROVIDE REG DIET, HONOR FOOD PREFERENCES. RD FOLLOWING
[2019-03-18] MEDS ORDERED: ELIQUIS2.5 MG PO (13:44)
[2019-03-18] MEDS ORDERED: Nicoderm [PBKC] TRANSDERM (13:44)
[2019-03-18] MEDS ORDERED: MULTI-DAY VITAM1 TAB PO (13:44)
[2019-03-18] MEDS ORDERED: ALBUTEROL2.5 MG/3 M UPD (13:44)
[2019-03-18 13:57] VITALS: BP 144/76
--- NOTE | 2019-03-18 14:28 | NUR ---
WAS DC DOWN TO REHAB AT THIS TIME VOICE UNDERSTANDING OF DC ORDERS AT THIS TIME. IN STABLE CONDITION UPON DC. PT WENT TO REHAB WITH IV CALL AND SPOKE TO NURSE ON FLOOR IN REHAB AND INFORMED HER THAT IT MAY BE DC.
--- NOTE | 2019-03-19 15:18 | MORECARE ---
CASE MANAGEMENT DISCHARGE SUMMARY PATIENT: HARRIET PEPE UNIT: [id number] ADM DATE: 03/10/19 AGE: 63 : 53 SEX: M ROOM/BED: D.2201 AUTHOR: FORREST CARVAJAL PHYSICIAN: REFERRING PHYSICIAN: GORAN SALEH MD DATE OF SERVICE: 03/19/19 Discharge Plan Patient Name: HARRIET PEPE Facility: [facility]:[place] : 1955 Planned Disposition: Inpatient Rehab Anticipated Discharge Date: Discharge Date: 03/18/2019 Expected LOS: Initial Reviewer: [email or web address] Initial Review Date: 03/11/2019 Generated: 03/19/19 4:17 pm Comments DCP- Discharge Planning Updated by [email or web address]: Shanique Anton on 03/18/19 11:[address] PATIENT TO BE DICHARGED TO INPATIENT REHAB TODAY DCP- Discharge Planning Updated by [id number]: Shanique Anton on 03/16/19 2:[address] IMM SERVED AND EXPLAINED COPY PLACED IN CHART DCPIA - Discharge Planning Initial Assessment Updated by [id number]: Kanwal Singh on 03/11/19 12:09 pm * Is the patient Alert and Oriented? Yes * PCP [facility] * Pharmacy [facility] [address] * Preadmission Environment Home with Family * ADLs Independent * Other Equipment WALKER * Community resources currently utilized Home Health * Please name any agencies selected above. [facility] * Additional services required to return to the preadmission environment? No * Can the patient safely return to the preadmission environment? Yes * Has this patient been hospitalized within the prior 30 days at any hospital? Yes Coverage Notice Reviewer: [id number] Dana Singh Notice Issued Date-Time: 03/11/2019 12:09 Notice Type: Patient Choice Letter Notice Delivered To: Patient Relationship to Patient: Chief Of Service Name: Delivery Method: HAND - Hand Delivered Zuri Days: Prior Verbal Notification: Recipient Understood Notice: Yes Recipient Signature: Yes Med Rec Note Co-signed by Attending: Coverage Notice Comment: FRIDA RESUME [facility] Reviewer: [id number] Dana Anton Notice Issued Date-Time: 03/16/2019 15:40 Notice Type: IM Discharge Notice Notice Delivered To: Patient Relationship to Patient: Chief Of Service Name: Delivery Method: HAND - Hand Delivered Zuri Days: Prior Verbal Notification: Recipient Understood Notice: Yes Recipient Signature: Yes Med Rec Note Co-signed by Attending: Coverage Notice Comment: Last DP export: 03/18/19 11:06 Patient Name: HARRIET PEPE Page [phone] at 1518 All edits/amendments must be made on the electronic document DICTATION DATE: 03/19/191516 WATER QUALITY TECHNICIAN: FREDERIC 03/19/191516 RPT#: [id number] DC DATE:03/18/19 STATUS: DIS IN [facility] [address] [place] [address] END OF REPORT
== END 2019-03-18 14:30 | DRG 481 ==
LOC: D.ER 19:33 → D.MS 22:04
PROVIDERS: Family Medicine; Internal Medicine Nephrology; Orthopaedic Surgery; ADMIT Family Medicine Adult Medicine; ATTEND Family Medicine Adult Medicine
PROC: 0S993ZX Drainage of Right Hip Joint, Percutaneous Approach, Diagnostic (ICD-10-PCS; 2019-03-11)
PROC: 0SC90ZZ Extirpation of Matter from Right Hip Joint, Open Approach (ICD-10-PCS; principal; 2019-03-15 08:30)
PROC: 0LMJ0ZZ Reattachment of Right Hip Tendon, Open Approach (ICD-10-PCS; 2019-03-15 08:30)
DX: S72.114A Nondisplaced fracture of greater trochanter of right femur, initial encounter for closed fracture (principal); M97.01XA Periprosthetic fracture around internal prosthetic right hip joint, initial encounter; T81.31XA Disruption of external operation (surgical) wound, not elsewhere classified, initial encounter; E87.1 Hypo-osmolality and hyponatremia; F17.203 Nicotine dependence unspecified, with withdrawal; D62 Acute posthemorrhagic anemia; W19.XXXA Unspecified fall, initial encounter; Z91.81 History of falling; M19.90 Unspecified osteoarthritis, unspecified site; J43.9 Emphysema, unspecified; I10 Essential (primary) hypertension; D53.9 Nutritional anemia, unspecified; S70.01XA Contusion of right hip, initial encounter

== ENCOUNTER 2019-03-18 12:43 | Inpatient (IN) | payer MEDICARE, BC ==
[~2019-03-18] VITALS: Ht 185.4 cm; Wt 61.2 kg
[2019-03-18] MEDS ORDERED: ELIQUIS2.5 MG PO (13:44)
[2019-03-18] MEDS ORDERED: MULTI-DAY VITAM1 TAB PO (13:44)
[2019-03-18] MEDS ORDERED: ALBUTEROL2.5 MG/3 M UPD (13:44)
[2019-03-18] MEDS ORDERED: Nicoderm [PBKC] TRANSDERM (13:44)
[2019-03-18 14:44] VITALS: BP 140/90; BMI 17.8
--- NOTE | 2019-03-18 19:00 | NUR ---
PT IS RESTING IN BED WITH EYES CLOSED. AWOKE EASILY TO VERBAL STIMULI. NO COMPLAINT OF PAIN OR DISCOMFORT VOICED. DRESSING TO RIGHT HIP IS CDI. NO DRAINAGE NOTED. SR'S ARE UP X 2 IN BED. CALL LIGHT AND BEDSIDE TABLE ARE WITHIN EASY REACH.
[2019-03-18 19:46] VITALS: BP 158/98
--- NOTE | 2019-03-18 22:15 | NUR ---
PT IS RESTING QUIETLY IN BED WITH EYES CLOSED. RESPS ARE EVEN AND UNLABORED. NO ACUTE DISTRESS NOTED.
--- NOTE | 2019-03-19 01:00 | NUR ---
RESTING IN BED WITH EYES CLOSED.
--- NOTE | 2019-03-19 02:11 | NUR ---
I have reviewed this patient and I concur with the Shift Assessment completed by the Licensed Practical Nurse today this shift.
--- NOTE | 2019-03-19 05:00 | NUR ---
PT RESTING IN BED WITH EYES CLOSED. NO DISTRESS NOTED.
--- NOTE | 2019-03-19 07:13 | NUR ---
GREETED PATIENT AND INTRODUCED MYSELF. PATIENT IS CURRENTLY IN THERAPY ROOM WITH GREGOR. RESPIRATIONS EVEN. NO S/S OF DISTRESS.
[2019-03-19 07:20] LABS: BASOPHILS 0.4 % (0-2); EOSINOPHILS 1.1 % (0-7); HEMATOCRIT 32.3 % (42.0-54.0); HEMOGLOBIN 10.4 g/dL (13.5-17.5); IMMATURE GRANULOCYTES 0.2 % (0-5); MCH 32.8 pg (26.0-34.0); MCHC 32.2 g/dL (31.0-37.0); MCV 101.9 fL (80.0-100.0); MEAN PLATELET VOLUME 8.2 fL (7.4-10.4); MONOCYTES 8.6 % (2-11); NEUTROPHILS 59.7 % (40-80); PLATELET COUNT 301 10x3/uL (130-400); RBC 3.17 10x6/uL (4.20-6.10); RDW 15.1 % (11.5-14.5); WBC 4.7 10x3/uL (4.8-10.8)
[2019-03-19 07:29] LABS: CALC OSMOLALITY 275 mosm/kg (275-300); CARBON DIOXIDE 28.3 mmol/L (21.0-32.0); CHLORIDE - SERUM 103 mmol/L (98-107); CREATININE - SERUM 0.6 mg/dL (0.6-1.3); GLUCOSE 100 mg/dL (74-106); POTASSIUM - SERUM 3.9 mmol/L (3.5-5.1); SODIUM 139 mmol/L (136-145); UREA NITROGEN 8 mg/dL (7-18); eGFR NON AFRICAN AMERICAN > 90 mL/min (90-120)
[2019-03-19 07:45] VITALS: BP 144/89
[2019-03-19 08:48] VITALS: Ht 185.4 cm; Wt 61.2 kg
[2019-03-19 19:30] VITALS: BP 131/76
--- NOTE | 2019-03-19 19:47 | NUR ---
PT IS RESTING IN BED WITH EYES OPEN. ALERT AND ORIENTED X 3. DENIES ACUTE DISCOMFORT AT THIS TIME. NO NEEDS VOICED. DRESSING TO RIGHT HIP IS CDI. NO DRAINAGE NOTED. SR'S ARE UP X 2 IN BED. CALL LIGHT AND BEDSIDE TABLE ARE WITHIN EASY REACH.
--- NOTE | 2019-03-19 22:27 | NUR ---
PT RESTING IN BED WITH EYES CLOSED. NO ACUTE DISTRESS NOTED.
--- NOTE | 2019-03-20 00:43 | NUR ---
PT VOICED COMPLAINT OF RIGHT HIP PAIN LEVEL OF 6. MEDICATED PER MAR.
--- NOTE | 2019-03-20 01:31 | NUR ---
I have reviewed this patient and I concur with the Shift Assessment completed by the Licensed Practical Nurse today this shift.
--- NOTE | 2019-03-20 06:26 | NUR ---
PT RESTING IN BED WITH EYES OPEN. NO NEEDS VOICED.
--- NOTE | 2019-03-20 07:03 | NUR ---
PT. SLEEPING AT THIS TIME. RESPIRATIONS EVEN. NO S/S OF DISTRESS. CALL LIGHT IN REACH.
[2019-03-20 07:30] VITALS: BP 157/105
--- NOTE | 2019-03-20 13:21 | NUR ---
PT. RESTING QUIETLY WITH EYES CLOSED. RESPIRATIONS EVEN. NO S/S OF DISTRESS. CALL LIGHT IN REACH.
--- NOTE | 2019-03-20 17:17 | NUR ---
PT. EATING DINNER AT THIS TIME. DENIES ANY NEEDS. CALL LIGHT IN REACH.
--- NOTE | 2019-03-20 19:17 | NUR ---
PT IS RESTING IN BED WITH EYES OPEN. NO NEEDS VOICED.
[2019-03-20 20:58] VITALS: BP 122/75
--- NOTE | 2019-03-20 22:04 | NUR ---
PT RESTING IN BED WITH EYES OPEN. VOICED COMPLAINT OF RIGHT HIP PAIN LEVEL OF 6. MEDICATED PER JUN.
--- NOTE | 2019-03-21 00:08 | NUR ---
I have reviewed this patient and I concur with the Shift Assessment completed by the Licensed Practical Nurse today this shift.
--- NOTE | 2019-03-21 04:46 | NUR ---
RESTING IN BED WITH EYES CLOSED.
[2019-03-21 07:14] LABS: BASOPHILS 0.4 % (0-2); EOSINOPHILS 1.4 % (0-7); HEMATOCRIT 32.2 % (42.0-54.0); HEMOGLOBIN 10.5 g/dL (13.5-17.5); IMMATURE GRANULOCYTES 0.2 % (0-5); LYMPHOCYTES 32.6 % (15-50); MCH 33.3 pg (26.0-34.0); MCHC 32.6 g/dL (31.0-37.0); MCV 102.2 fL (80.0-100.0); MEAN PLATELET VOLUME 8.6 fL (7.4-10.4); MONOCYTES 10.3 % (2-11); NEUTROPHILS 55.1 % (40-80); PLATELET COUNT 334 10x3/uL (130-400); RBC 3.15 10x6/uL (4.20-6.10); RDW 15.3 % (11.5-14.5)
[2019-03-21 07:19] LABS: CALC OSMOLALITY 275 mosm/kg (275-300); CALCIUM 8.8 mg/dL (8.5-10.1); CARBON DIOXIDE 28.9 mmol/L (21.0-32.0); CHLORIDE - SERUM 104 mmol/L (98-107); CREATININE - SERUM 0.7 mg/dL (0.6-1.3); GLUCOSE 89 mg/dL (74-106); POTASSIUM - SERUM 3.8 mmol/L (3.5-5.1); SODIUM 140 mmol/L (136-145); UREA NITROGEN 8 mg/dL (7-18); eGFR NON AFRICAN AMERICAN > 90 mL/min (90-120)
[2019-03-21 07:46] VITALS: BP 147/89
--- NOTE | 2019-03-21 08:00 | NUR ---
C/O PAIN TO RT HIP. DENIES NUMBNESS AND TINGLING TO RLE. NO S/S WORSENING CONDITION. CALL LIGHT IN REACH
--- NOTE | 2019-03-21 09:51 | NUR ---
NUTRITION F/U PT WITH 100% INTAKE RECENT MEALS. BM RECORDED ON 03/20/19. WILL CONTINUE TO PROVIDE REG DIET, HONOR FOOD PREFERENCES, MONITOR PO INTAKE. RD FOLLOWING
--- NOTE | 2019-03-21 10:40 | NUR ---
PATIENT ADMITTED TO REHAB FROM ACUTE FLOOR. DR. [place] IS HIS PCP. DME AT HOME IS A ROLLING WALKER. DISCHARGE PLANS ARE FOR PATIENT TO RETURN HOME . WILL CONTINUE TO FOLLOW WITH PATIENT.
--- NOTE | 2019-03-21 10:41 | NUR ---
HE IS A CLIENT OF [facility].
[2019-03-21 20:00] VITALS: BP 129/81
--- NOTE | 2019-03-21 20:00 | NUR ---
PATIENT RECEIVED SITTING UP IN BED WATCHING TV. PATIENT ASSESSMENT & VITAL SIGNS DONE. BED LOW. ALARM ON. CALL LIGHT & URINAL WITHIN REACH. WILL CONITNUE TO MONITOR.
--- NOTE | 2019-03-21 20:30 | NUR ---
PATIENT USED CALL LIGHT FOR ASSIST. PATIENT HAD 700 CC OF URINE IN URINAL. URINAL EMPTIED & RETURNED IT ON TABLE AT BEDSIDE. CALL LIGHT WITHIN REACH. WILL CONTINUE TO MONITOR.
--- NOTE | 2019-03-22 02:27 | NUR ---
PATIENT USED CALL LIGHT. PATIENT HAD PAIN LEVEL OF 6 TO RIGHT HIP. PAIN MEDICATION & SCHEDULED ATIVAN GIVEN. BED LOW. CALL LIGHT WITHIN REACH. WILL CONTINUE TO MONITOR.
--- NOTE | 2019-03-22 04:03 | NUR ---
I have reviewed this patient and I concur with the Shift Assessment completed by the Licensed Practical Nurse today this shift.
--- NOTE | 2019-03-22 04:12 | NUR ---
PATIENT EYES CLOSED. RESPIRATIONS 18 & EVEN. ALARM ON. CALL LIGHT & URINAL WITHIN REACH. WILL CONTINUE TO MONITOR.
[2019-03-22 08:08] VITALS: BP 154/95
--- NOTE | 2019-03-22 09:58 | RHP ---
PATIENT: HARRIET PEPE MEDICAL RECORD: [id number] ACCOUNT: [id number] LOCATION:[facility]1118 : 51 ADMISSION DATE: 03/18/19 REHABILITATION HISTORY AND PHYSICAL EXAMINATION POST ADMISSION PHYSICIAN EXAMINATION ADMITTING DIAGNOSIS: Right hip fracture. HISTORY OF PRESENT ILLNESS: The patient is a 63-year-old gentleman who presented to Emergency Room Department after he sustained a fall, injuring his right hip. The patient stated that he had right hip replacement on 02/15/[address] Boothe. He was admitted to the rehab for a couple of weeks and discharged home on 03/02/2019. Right leg had given out on him a couple times since he has been home. He also reported a little bit of a bloody discharge from the surgical site. X-ray showed there was a fracture of the greater trochanter, which may be new. He underwent an aspiration of the right hip on 03/11/2019. On 03/15/2019, he did an ORIF of the greater trochanter with evacuation. It was a new fractured area and the hip prosthesis was noted to be stable. He is currently on telemetry, he has been on supplemental O2. He is having some difficulty maintaining toe-touch weightbearing precautions. He has had acute pain with pain control, deconditioning, weakness, debility, gait disturbance, impaired mobility. He is a high fall risk and has self-care deficits. These are all barriers to his discharge home. He is currently set up for max assist for ADLs, mod assist for his mobility. He and his would like for him to return home at his prior level of functioning or better if possible. COMORBIDITIES: Include surgical wound dehiscence, new fracture of the greater trochanter, hyponatremia, previous alcohol use, status post hip replacement, possible changes noted from this, osteoarthritis, emphysema, hypertension, nicotine dependence and withdrawal. PAST MEDICAL HISTORY: Significant for history of emphysema, anemia, pancytopenia, constipation, arthritis, hip fracture, alcohol abuse, tobacco use. PAST SURGICAL HISTORY: Includes a knee scope, excision of the lymph node and right hip replacement. ALLERGIES: CODEINE. CURRENT MEDICATIONS: Include a Nicoderm patch daily. He is on multivitamin daily. He is on lisinopril 10 mg daily. He is on Protonix 40 mg daily, lorazepam 1 mg every 6 hours p.r.n., Mag-Ox 400 mg b.i.d., Colace 100 mg b.i.d., Eliquis 2.5 mg b.i.d., Hubert 7.5 one tab every 4 hours p.r.n., and Ventolin updrafts as needed. HABITS: Does have a history of tobacco and alcohol use. FAMILY HISTORY: Noncontributory. SOCIAL HISTORY: The patient hopes to return back home and get back to his prior level of functioning. REVIEW OF SYSTEMS: GENERAL: Does complain of some weakness and fatigue. HISTORY AND PHYSICAL [id number] HARRIET PEPE HEENT: Denies cold, cough, or congestion. CARDIOVASCULAR: Denies chest pain. PHYSICAL EXAMINATION: VITAL SIGNS: Stable, afebrile. Generally a thin gentleman in no acute distress, alert upon exam. HEENT: Normocephalic and atraumatic. Mucosa moist. NECK: Supple without adenopathy. LUNGS: Clear in upper hob[place]. HEART: Regular rate and rhythm. No murmurs, rubs or gallops. ABDOMEN: Soft, benign, and nondistended. Positive bowel sounds times 4. EXTREMITIES: Postop area to his extremity appears normal at this time. NEUROLOGIC: He does have noted weakness. LABORATORY DATA: White count 4.7, H&H of 10 and 32 and platelet count is noted to be 301. His MCV is 101.9. Sodium 139, potassium 3.9, BUN and creatinine of 8 and 0.6 and blood sugar is noted to be 100. ASSESSMENT: This is a 63-year-old gentleman admitted to the rehab with a working diagnosis of right hip fracture. The patient has potential to make improvement. We instituted the following multidisciplinary therapies including, but not limited to physical, occupational, respiratory, speech, nutritional services, prosthetics and orthotics. Given his complex medical condition and risk for more complications, rehabilitation services cannot be provided at a low level of care such as custodial facility. PLAN: 1. Admit to [facility] for intensive inpatient therapy to include the following disciplines; A. Physical therapy to improve gait, all transfer skills and bed mobility to a modified independent level. B. Occupational therapy to a modified independent level. C. Case management to assist with discharge planning and placement options. D. Nutrition to assist with nutritional needs. E. Rehabilitation nursing to assist in monitoring the patient's underlying medical condition and to assist with any type of bowel or bladder management. 2. The patient current medication and medical care will be continued. 3. The patient will be placed on standard fall precautions. 4. We will continue on Eliquis for DVT prophylaxis and Nicoderm patch. 5. I will see again in the a.m. on Thursday. TRANSINT:[id number] Voice Confirmation ID: [id number] DOCUMENT ID: [id number] JOAN notes whether there has been none or any medical/functional change since admission: - No change since the PAS JOAN attests patient continues to be appropriate for IRF: - Remains approipriate for the ARU HISTORY AND PHYSICAL [id number] HARRIET PEPE,GATO JACOBS MD at 0958 CC: [id number] DICTATION DATE: 03/19/19 1116 EVENING ANCHOR: 03/19/19 1232 ADM IN [facility] [address] [place] [address]
--- NOTE | 2019-03-22 13:43 | NUR ---
PAIN MEDS GIVEN REQUESTED AND ORDERED. C/O PAIN TO RT HIP. DSG REMOVED FROM RT HIP THIS IS DAY #7 FROM SURGERY. RUSTAM OVER INCISION IN PLACE. NO ACTIVE DRAINAGE NOTED. INCISION IS NOT HOT TO TOUCH OR RED. RLE BRACE NOTED ALSO. PT HAS CHRONIC FOOT DROP. CALL LIGHT IN REACH
--- NOTE | 2019-03-22 16:38 | NUR ---
RESTING QUIETLY IN BED WATCHING TV. NO DRAINAGE NOTED FROM RT HIP WOUND. HE HAS NO C/O OR REQUESTS. CALL LIGHT IN REACH
[2019-03-22 20:00] VITALS: BP 109/71
--- NOTE | 2019-03-22 20:00 | NUR ---
PATIENT RECEIVED LYING ON HIS BACK IN BED. ASSESSMENT & VITAL SIGNS DONE. NO C/O PAIN OR DISTRESS. BED LOW. ALARM ON. 2 URINALS & CALL LIGHT WITHIN REACH. WILL CONTINUE TO MONITOR.
--- NOTE | 2019-03-23 02:36 | NUR ---
PATIENT EYES CLOSED. RESPIRATIONS 18 & EVEN. BED LOW. URINALS & CALL LIGHT WITHIN REACH. NO DRAINAGE NOTED FROM RIGHT HIP INCISION. WILL CONTINUE TOMONITOR.
[2019-03-23 06:33] LABS: CALC OSMOLALITY 276 mosm/kg (275-300); CALCIUM 9.3 mg/dL (8.5-10.1); CARBON DIOXIDE 29.6 mmol/L (21.0-32.0); CHLORIDE - SERUM 104 mmol/L (98-107); CREATININE - SERUM 0.6 mg/dL (0.6-1.3); GLUCOSE 90 mg/dL (74-106); POTASSIUM - SERUM 3.9 mmol/L (3.5-5.1); SODIUM 139 mmol/L (136-145); UREA NITROGEN 9 mg/dL (7-18); eGFR NON AFRICAN AMERICAN > 90 mL/min (90-120)
[2019-03-23 07:43] LABS: BASOPHILS 0.4 % (0-2); EOSINOPHILS 1.7 % (0-7); HEMOGLOBIN 10.3 g/dL (13.5-17.5); IMMATURE GRANULOCYTES 0.2 % (0-5); LYMPHOCYTES 34.4 % (15-50); MCH 32.9 pg (26.0-34.0); MCHC 32.2 g/dL (31.0-37.0); MCV 102.2 fL (80.0-100.0); MEAN PLATELET VOLUME 8.7 fL (7.4-10.4); MONOCYTES 10.2 % (2-11); NEUTROPHILS 53.1 % (40-80); PLATELET COUNT 350 10x3/uL (130-400); RBC 3.13 10x6/uL (4.20-6.10); RDW 15.5 % (11.5-14.5); WBC 4.6 10x3/uL (4.8-10.8)
--- NOTE | 2019-03-23 07:58 | NUR ---
ALERT AND ORIENTED. NO DISTRESS NOTED. CL IN REACH. RESP EVEN AND UNLABORED. WAITING FOR BREAKFAST.
[2019-03-23 08:04] VITALS: BP 154/94
--- NOTE | 2019-03-23 12:36 | NUR ---
PARTICIPATED IN THERAPY THIS AM. NO DISTRESS NOTED. AT BS. CL IN REACH.
--- NOTE | 2019-03-23 16:06 | NUR ---
NO CHANGE IN ASSESSMENT. CL IN REACH. NO DISTRESS NOTED.
--- NOTE | 2019-03-23 19:05 | NUR ---
GREETED PATIENT AND INTRODUCED MYSELF HIS NURSE. PATIENT IS LAYING IN BED WATCHING TV. RESPIRATIONS EVEN. NO S/S OF DISTRESS. STATES THAT PAIN LEVEL IS 6/10 IN RIGHT HIP. DENIES ANY NEEDS AT THIS TIME. CALL LIGHT IN REACH.
[2019-03-23 19:30] VITALS: BP 115/67
--- NOTE | 2019-03-24 02:16 | NUR ---
PT. RESTING QUIETLY WITH EYES CLOSED. RESPIRATIONS EVEN. NO S/S OF DISTRESS. CALL LIGHT IN REACH.
--- NOTE | 2019-03-24 06:35 | NUR ---
PT. RESTING QUIETLY WITH EYES CLOSED. CALL LIGHT IN REACH.
--- NOTE | 2019-03-24 08:00 | NUR ---
PATIENT IS ALERT/ORIENT. CALL LIGHT WITHIN REACH. VOICES NO NEEDS AT THIS TIME.WILL CONTINUE WITH PLAN OF CARE
[2019-03-24 08:23] VITALS: BP 122/78
--- NOTE | 2019-03-24 09:40 | NUR ---
PATIENT IN REHAB ROOM. WORKING WITH PHYSICAL THERAPIST. REQUESTED PRN PAIN MEDICATION FOR RIGHT HIP PAIN. GIVEN
--- NOTE | 2019-03-24 12:00 | NUR ---
I have reviewed this patient and I concur with the Shift Assessment completed by the Licensed Practical Nurse today this shift.
--- NOTE | 2019-03-24 14:10 | NUR ---
PATIENT BACK IN BED AFTER OCCUPATIONAL THERAPY. PRN PAIN MEDICATION GIVEN PER PATIENT REQUEST
--- NOTE | 2019-03-24 14:37 | NUR ---
Nutrition Follow-up: Diet: Regular diet PO intake: ~94% average x last 9 meals; reports good appetite Last BM: 03/20/19. Wt: 135# (03/19/19) Meds and labs reviewed Continue current nutrition regimen. RD following.
[2019-03-24 19:00] VITALS: BP 104/59
--- NOTE | 2019-03-24 19:18 | NUR ---
GREETED PATIENT AND INTRODUCED MYSELF HIS NURSE. PATIENT IS LAYING IN BED RESTING QUIETLY AT THIS TIME. RESPIRATIONS EVEN. NO S/S OF DISTRESS. STATES THAT PAIN IS 5/10 IN RIGHT HIP. DENIES ANY FURTHER NEEDS AT THIS TIME. CALL LIGHT IN REACH.
--- NOTE | 2019-03-25 00:37 | NUR ---
PT RESTING QUIETLY WITH EYES CLOSED. RESPIRATIONS EVEN. NO S/S OF DISTRESS. SR UP X 2 BED IN LOWEST POSITION. CALL LIGHT IN REACH.
[2019-03-25 06:20] LABS: CALC OSMOLALITY 276 mosm/kg (275-300); CALCIUM 9.2 mg/dL (8.5-10.1); CHLORIDE - SERUM 105 mmol/L (98-107); CREATININE - SERUM 0.7 mg/dL (0.6-1.3); GLUCOSE 82 mg/dL (74-106); POTASSIUM - SERUM 4.4 mmol/L (3.5-5.1); SODIUM 140 mmol/L (136-145); UREA NITROGEN 11 mg/dL (7-18); eGFR NON AFRICAN AMERICAN > 90 mL/min (90-120)
[2019-03-25 07:52] LABS: BASOPHILS 0.5 % (0-2); EOSINOPHILS 2.7 % (0-7); HEMATOCRIT 32.8 % (42.0-54.0); HEMOGLOBIN 10.7 g/dL (13.5-17.5); IMMATURE GRANULOCYTES 0.5 % (0-5); LYMPHOCYTES 38.3 % (15-50); MCH 33.4 pg (26.0-34.0); MCHC 32.6 g/dL (31.0-37.0); MCV 102.5 fL (80.0-100.0); MEAN PLATELET VOLUME 8.5 fL (7.4-10.4); MONOCYTES 11.4 % (2-11); NEUTROPHILS 46.6 % (40-80); PLATELET COUNT 351 10x3/uL (130-400); RDW 15.4 % (11.5-14.5); WBC 4.1 10x3/uL (4.8-10.8)
[2019-03-25 08:13] VITALS: BP 157/90
--- NOTE | 2019-03-25 12:31 | NUR ---
SITTING UP FOR LUNCH. STILL C/O PAIN TO RT HIP AND IS ANXIOUS TO WALK ON RLE. RUSTAM STILL CLOSING INCISION. NO S/S INFECTION NOTED. CALL LIGHT IN REACH
--- NOTE | 2019-03-25 18:14 | NUR ---
SITTING UP IN BED WATCHING TV. DENIES NEEDS OR INCREASED PAIN. RT HIP INCISION INTACT. CALL LIGHT IN REACH
--- NOTE | 2019-03-25 19:45 | NUR ---
PT IS RESTING IN BED WITH EYES OPEN. ALERT AND ORIENTED X 3. DENIES ACUTE PAIN OR DISCOMFORT AT THIS TIME. VSS. NO NEEDS VOICED. RUSTAM TO RIGHT HIP INCISION ARE CDI. NO DRAINAGE NOTED. SR'S ARE UP X 3 IN BED. CALL LIGHT AND BEDSIDE TABLE ARE WITHIN EASY REACH.
--- NOTE | 2019-03-25 22:35 | NUR ---
PT IS RESTING QUIETLY IN BED WITH EYES CLOSED. RESPS ARE EVEN AND UNLABORED. NO ACUTE DISTRESS NOTED.
--- NOTE | 2019-03-26 01:12 | NUR ---
I have reviewed this patient and I concur with the Shift Assessment completed by the Licensed Practical Nurse today this shift.
--- NOTE | 2019-03-26 05:23 | NUR ---
PT RESTING IN BED WITH EYES OPEN. NO NEEDS VOICED.
[2019-03-26 06:07] LABS: BASOPHILS 0.4 % (0-2); EOSINOPHILS 2.5 % (0-7); HEMATOCRIT 33.1 % (42.0-54.0); HEMOGLOBIN 10.7 g/dL (13.5-17.5); IMMATURE GRANULOCYTES 0.2 % (0-5); MCH 32.8 pg (26.0-34.0); MCHC 32.3 g/dL (31.0-37.0); MCV 101.5 fL (80.0-100.0); MEAN PLATELET VOLUME 8.1 fL (7.4-10.4); MONOCYTES 12.1 % (2-11); NEUTROPHILS 44.8 % (40-80); PLATELET COUNT 297 10x3/uL (130-400); RBC 3.26 10x6/uL (4.20-6.10); RDW 15.3 % (11.5-14.5); WBC 4.5 10x3/uL (4.8-10.8)
[2019-03-26 06:36] LABS: CALC OSMOLALITY 276 mosm/kg (275-300); CALCIUM 9.2 mg/dL (8.5-10.1); CARBON DIOXIDE 28.7 mmol/L (21.0-32.0); CHLORIDE - SERUM 104 mmol/L (98-107); CREATININE - SERUM 0.7 mg/dL (0.6-1.3); GLUCOSE 86 mg/dL (74-106); POTASSIUM - SERUM 4.4 mmol/L (3.5-5.1); SODIUM 140 mmol/L (136-145); UREA NITROGEN 11 mg/dL (7-18); eGFR NON AFRICAN AMERICAN > 90 mL/min (90-120)
[2019-03-26 08:00] VITALS: BP 141/87
--- NOTE | 2019-03-26 13:22 | NUR ---
SITTING UP IN BED WATCHING TV. STATES PAIN IS CONTROLLED WELL BY PAIN MEDS. USES URINAL AT TIMES WHEN IN BED. CALL LIGHT IN REACH
--- NOTE | 2019-03-26 19:55 | NUR ---
PATIENT RECEIVED SITTING UP IN BED WATCHING TV. ASSESSMENT & VITAL SIGNS DONE. RIGHT HIP RUSTAM INTACT & NO REDNESS, OPEN TO AIR. BED LOW. CALL LIGHT & URINALS WITHIN REACH. WILL CONTINUE TO MONITOR.
[2019-03-26 20:03] VITALS: BP 129/70
--- NOTE | 2019-03-26 23:49 | NUR ---
I have reviewed this patient and I concur with the Shift Assessment completed by the Licensed Practical Nurse today this shift.
--- NOTE | 2019-03-27 01:56 | NUR ---
PATIENT AWAKE USED CZLL LIGHT FOR PAIN MEDICATION. PAIN LEVEL 7. PATIENT GIVEN PAIN MEDICATION PER ORDER. WILL REEVALUATE. BED LOW/ CALL LIGHT & URINAL WITHIN REACH.
--- NOTE | 2019-03-27 04:59 | NUR ---
PATIENT EYES CLOSED. RESPIRATIONS 18 & EVEN. BED LOW. URINAL & CALL LIGHT WITHIN REACH. WILL CONTINUE TO MONITOR.
[2019-03-27 08:00] VITALS: BP 152/88
--- NOTE | 2019-03-27 14:28 | NUR ---
SITTING UP IN BED READING PAPER. PAIN MEDS RECENTLY GIVEN. STATES HIS HIP IS PAINFUL AND HE WANTS TO WAIT TO TAKE SHOWER WHEN PAIN LESSENS. CALL LIGHT IN REACH
--- NOTE | 2019-03-27 19:35 | NUR ---
PT LYING IN BED ON BACKSIDE. NO DISTRESS NOTED. EYES CLOSED. BED IN LOW SIDE RAILS X2. CL IN REACH. RESP EVEN AND UNLABORED. LUNGS CLEAR BOWEL ACTIVE X4. A/O X4. WILL CONTINUE TO MONITOR.
[2019-03-27 20:51] VITALS: BP 129/77
--- NOTE | 2019-03-28 02:38 | NUR ---
I have reviewed this patient and I concur with the Shift Assessment completed by the Licensed Practical Nurse today this shift.
[2019-03-28 06:14] LABS: BASOPHILS 0.5 % (0-2); EOSINOPHILS 2.6 % (0-7); HEMATOCRIT 35.5 % (42.0-54.0); HEMOGLOBIN 11.5 g/dL (13.5-17.5); LYMPHOCYTES 39.5 % (15-50); MCH 32.9 pg (26.0-34.0); MCHC 32.4 g/dL (31.0-37.0); MCV 101.4 fL (80.0-100.0); MEAN PLATELET VOLUME 8.2 fL (7.4-10.4); MONOCYTES 10.5 % (2-11); NEUTROPHILS 46.9 % (40-80); PLATELET COUNT 299 10x3/uL (130-400); RDW 15.3 % (11.5-14.5); WBC 4.3 10x3/uL (4.8-10.8)
[2019-03-28 06:30] LABS: CALC OSMOLALITY 276 mosm/kg (275-300); CALCIUM 9.5 mg/dL (8.5-10.1); CARBON DIOXIDE 30.1 mmol/L (21.0-32.0); CHLORIDE - SERUM 103 mmol/L (98-107); CREATININE - SERUM 0.7 mg/dL (0.6-1.3); GLUCOSE 86 mg/dL (74-106); POTASSIUM - SERUM 4.5 mmol/L (3.5-5.1); SODIUM 139 mmol/L (136-145); UREA NITROGEN 13 mg/dL (7-18); eGFR NON AFRICAN AMERICAN > 90 mL/min (90-120)
--- NOTE | 2019-03-28 10:27 | NUR ---
WALKING HALLS WITH THERAPY. WEARING AFO BRACE TO RLE.
--- NOTE | 2019-03-28 13:24 | NUR ---
LAYING IN BED RESTING QUIETLY. NO S/S DISTRESS NOTED. CALL LIGHT IN REACH
--- NOTE | 2019-03-28 16:15 | NUR ---
SITTING UP IN BED WATCHING TV. HE STATES PAIN MEDS ARE EFFECTIVE IN HELPING HIM MANAGE HIS PAIN TO RLE AND LOW BACK.
[2019-03-28 19:31] VITALS: BP 108/67
--- NOTE | 2019-03-28 19:40 | NUR ---
PATIENT RECEIVED SITTING UP IN BED WATCHING TV. ASSESSMENT & VITAL SIGNS DONE. BED LOW. CALL LIGHT & URINALS WITHIN REACH. WILL CONTINUE TO MONITOR.
--- NOTE | 2019-03-29 03:39 | NUR ---
PATIENT EYES CLOSED. RESPIRATIONS 18 & EVEN. URINALS & CALL LIGHT WITHIN REACH. WILL CONTINUE TO MONITOR.
[2019-03-29 08:00] VITALS: BP 148/80
--- NOTE | 2019-03-29 08:15 | NUR ---
PT AM MEDS ADMINISTERED. PT [place]. NICHOLE.
--- NOTE | 2019-03-29 12:15 | NUR ---
PRN PAIN MEDICINE REQ AND REC'D FOR 6/10 HIP PAIN. PT DENIES FURTHER NEEDS. WCTM .
--- NOTE | 2019-03-29 15:06 | NUR ---
Nutrition Follow-up: Diet: Regular PO intake: 75-100% x all meals; reports good appetite. Has snacks from his at bedside. Last BM: 03/24/19 x 5d now. WT: 135# (03/19/19), no new wt Meds and labs reviewed Continue current nutrition regimen. Consider increase bowel regimen to promote BM regularity (goal BM q 24-72hrs). RD following.
--- NOTE | 2019-03-29 16:12 | NUR ---
PT REQ AND REC'D PRN PAIN MEDICATION FOR 7/10 INCISIONAL PAIN. WCTM.
[2019-03-29 19:34] VITALS: BP 105/64
--- NOTE | 2019-03-29 19:34 | NUR ---
GREETED PATIENT AND INTRODUCED MYSELF HIS NURSE. PATIENT IS LAYING IN BED WATCHING TV AT THIS TIME. STATES THAT PAIN IN RIGHT HIP IS 6/10. RESPIRATIONS EVEN. NO S/S OF DISTRESS. CALL LIGHT IN REACH.
--- NOTE | 2019-03-30 01:40 | NUR ---
PT. RESTING QUIETLY WITH EYES CLOSED. RESPIRAITONS EVEN. NO S/S OF DISTRESS. CALL LIGHT IN REACH.
[2019-03-30 06:20] LABS: BASOPHILS 0.2 % (0-2); EOSINOPHILS 2.9 % (0-7); HEMATOCRIT 35.7 % (42.0-54.0); HEMOGLOBIN 11.5 g/dL (13.5-17.5); IMMATURE GRANULOCYTES 0.2 % (0-5); LYMPHOCYTES 37.1 % (15-50); MCH 32.8 pg (26.0-34.0); MCHC 32.2 g/dL (31.0-37.0); MCV 101.7 fL (80.0-100.0); MEAN PLATELET VOLUME 8.4 fL (7.4-10.4); NEUTROPHILS 48.6 % (40-80); PLATELET COUNT 272 10x3/uL (130-400); RBC 3.51 10x6/uL (4.20-6.10); RDW 15.1 % (11.5-14.5); WBC 5.1 10x3/uL (4.8-10.8)
[2019-03-30 07:10] LABS: CALC OSMOLALITY 277 mosm/kg (275-300); CALCIUM 9.3 mg/dL (8.5-10.1); CARBON DIOXIDE 28.2 mmol/L (21.0-32.0); CHLORIDE - SERUM 104 mmol/L (98-107); CREATININE - SERUM 0.8 mg/dL (0.6-1.3); GLUCOSE 88 mg/dL (74-106); POTASSIUM - SERUM 4.4 mmol/L (3.5-5.1); SODIUM 140 mmol/L (136-145); UREA NITROGEN 13 mg/dL (7-18); eGFR NON AFRICAN AMERICAN > 90 mL/min (90-120)
[2019-03-30 07:46] VITALS: BP 165/95
--- NOTE | 2019-03-30 08:00 | NUR ---
PATIENT IS ALERT/ORIENT. CALL LIGHT WITHIN REACH. VOICES NO NEEDS AT THIS TIME. WILL CONTINUE WITH PLAN OF CARE
--- NOTE | 2019-03-30 09:30 | NUR ---
PATIENT IN REHAB ROOM. WORKING WITH PHYSICAL THERAPIST. REQUESTED PRN PAIN MEDICATION FOR INCISIONAL PAIN. GIVEN
--- NOTE | 2019-03-30 10:30 | NUR ---
I have reviewed this patient and I concur with the Shift Assessment completed by the Licensed Practical Nurse today this shift.
--- NOTE | 2019-03-30 14:52 | NUR ---
SURGICAL CLIPES REMOVED FROM RIGHT HIP INCISION WITHOUT DIFFICULTY. STERI STRIPES APPLIED
--- NOTE | 2019-03-30 16:25 | NUR ---
CARE TEAM MEETING: PATIENT DOING WELL IN THERAPY AND WILL DISCHARGE IN AM HOME WITH [facility] FOR HOME HEALTH. WILL CONTINUE TO FOLLOW WITH PATIENT.
--- NOTE | 2019-03-30 19:18 | NUR ---
GREETED PATIENT AND INTRODUCED MYSELF HIS NURSE. PATIENT IS LAYING IN BED WATCHING TV. RESPIRATIONS EVEN. NO S/S OF DISTRESS. DENIES ANY NEEDS AT THIS TIME. CALL LIGHT IN REACH.
[2019-03-30 19:30] VITALS: BP 109/64
--- NOTE | 2019-03-31 08:05 | NUR ---
PT AM MEDS ADMINISTERED. PT REQ AND REC'D PRN PAIN MEDICATION AT THIS TIME. WCTM.
--- NOTE | 2019-03-31 10:31 | NUR ---
PATIENT DISCHARGING HOME TODAY WITH FAMILY. [facility] WILL REUSME THERAPY AT HOME. NO NEW DME NEEDED AT THIS TIME. DR. MONTAGUE 04/06/19 @ 4:00, DR. ESPINAL 04/04/19 @ 10:00. PATIENT CHOICE FORM AND COMPARE DATA REVIEWED WITH PATIENT AND HE VOICED UNDERSTANDING, [facility] FORM SIGNED, COPY GIVEN TO PATIENT.DISCHARGE INSTRUCTIONS FAXED TO PCP, HOME HEALTH AND REVIEWED WITH PATIENT AND SPOUSE.
[2019-03-31] MEDS ORDERED: NORCO-7.5 PO (12:48)
--- NOTE | 2019-03-31 15:35 | NUR ---
PT DISCHARGE INSTRUCTIONS REV'D AND PT STATES UNDERSTANDING. PT MEDICATIONS CALLED IN TO PAT ON [address]. PT DISCHARGING HOME WITH SPOUSE. PT ESCORTED OUT VIA WHEELCHAIR BY HOSPITAL STAFF.
== END 2019-03-31 16:55 | disposition home health service (06) | DRG 560 ==
LOC: D.REHAB 12:43
PROVIDERS: ADMIT Emergency Medicine; ATTEND Emergency Medicine
DX: S72.111D Displaced fracture of greater trochanter of right femur, subsequent encounter for closed fracture with routine healing (principal); E87.1 Hypo-osmolality and hyponatremia; F17.203 Nicotine dependence unspecified, with withdrawal; W19.XXXD Unspecified fall, subsequent encounter; T81.31XD Disruption of external operation (surgical) wound, not elsewhere classified, subsequent encounter; M19.90 Unspecified osteoarthritis, unspecified site; J43.9 Emphysema, unspecified; I10 Essential (primary) hypertension; R53.1 Weakness; D53.9 Nutritional anemia, unspecified; Z96.642 Presence of left artificial hip joint

== ENCOUNTER → 2019-10-04 13:39 | Outpatient (CLI) | payer MEDICARE, BC ==
[2019-03-19 08:48] VITALS: BMI 17.8
[~2019-10-04 13:39] MED LIST changes: +ALBUTEROL2.5 MG/3 M UPD; +Nicoderm [PBKC] TRANSDERM
== END | disposition home or self-care (01) ==
LOC: D.US 13:30
PROVIDERS: ATTEND Orthopaedic Surgery
DX: R22.41 Localized swelling, mass and lump, right lower limb (principal)

== ENCOUNTER → 2019-10-07 12:41 | Outpatient (CLI) | payer MEDICARE, BC ==
[2019-03-19 08:48] VITALS: BMI 17.8
== END | disposition home or self-care (01) ==
LOC: D.MRI 12:41
PROVIDERS: ATTEND Clinical Nurse Specialist Family Health
DX: M25.561 Pain in right knee (principal)

== ENCOUNTER 2020-09-06 19:57 | Observation (INO) | payer MEDICARE, BC ==
[~2020-09-06] VITALS: Ht 185.4 cm; Wt 56.6 kg
[2020-09-06 20:28] LABS: BASOPHILS 0.4 % (0-2); EOSINOPHILS 0.1 % (0-7); HEMATOCRIT 38.2 % (42.0-54.0); HEMOGLOBIN 12.9 g/dL (13.5-17.5); LYMPHOCYTES 20.9 % (15-50); MCH 37.3 pg (26.0-34.0); MCHC 33.9 g/dL (31.0-37.0); MEAN PLATELET VOLUME 5.8 fL (7.4-10.4); MONOCYTES 6.7 % (2-11); NEUTROPHILS 71.9 % (40-80); PLATELET COUNT 262 10x3/uL (130-400); RBC 3.47 10x6/uL (4.20-6.10); RDW 13.4 % (11.5-14.5); WBC 7.3 10x3/uL (4.8-10.8)
[2020-09-06 20:35] LABS: APTT 25.9 SECONDS (22.8-39.4); CALC OSMOLALITY 278 mosm/kg (275-300); CARBON DIOXIDE 24.2 mmol/L (21.0-32.0); CHLORIDE - SERUM 101 mmol/L (98-107); CREATININE - SERUM 0.9 mg/dL (0.6-1.3); GLUCOSE 102 mg/dL (74-106); INR 1.05 (0.85-1.17); POTASSIUM - SERUM 4.7 mmol/L (3.5-5.1); PROTIME 12.7 SECONDS (11.6-15.0); SODIUM 137 mmol/L (136-145); UREA NITROGEN 26 mg/dL (7-18); eGFR NON AFRICAN AMERICAN 89 mL/min (90-120)
[2020-09-06 20:49] LABS: ALBUMIN 3.7 g/dL (3.4-5.0); ALKALINE PHOSPHATASE 83 U/L (30-120); ALT (SGPT) 27 U/L (10-68); BILIRUBIN - TOTAL 0.33 mg/dL (0.2-1.3); CKMB 1.3 U/L (0.0-3.6); CREATINE KINASE 87 UL (21-232); MAGNESIUM - SERUM 1.9 mg/dL (1.8-2.4); PROTEIN - SERUM 6.8 g/dL (6.4-8.2); TROPONIN-I < 0.017 ng/mL (0.000-0.060)
[2020-09-06 23:04] LABS: LIPASE 157 U/L (73-393); PRO BNP 113 pg/mL (0-125)
--- NOTE | 2020-09-06 23:30 | NUR ---
PT FROM ER VIA WHEELCHAIR, PT AAO X 4, AMBULATED TO BED, PT RESP EVEN AND UNLABORED, NO DISTRESS NOTED, NO C/O CHEST PAIN AT THIS TIME. CL IN REACH, SR UP X 2.
[2020-09-07 00:35] VITALS: BP 130/87; Ht 185.4 cm; Wt 56.6 kg
[2020-09-07 02:51] LABS: BASOPHILS 0.5 % (0-2); EOSINOPHILS 0 % (0-7); HEMATOCRIT 35.1 % (42.0-54.0); LYMPHOCYTES 23.7 % (15-50); MCH 37.6 pg (26.0-34.0); MCHC 34.2 g/dL (31.0-37.0); MONOCYTES 8.9 % (2-11); NEUTROPHILS 66.9 % (40-80); PLATELET COUNT 238 10x3/uL (130-400); RBC 3.19 10x6/uL (4.20-6.10); RDW 13.2 % (11.5-14.5); WBC 7.5 10x3/uL (4.8-10.8)
[2020-09-07 03:09] LABS: ALBUMIN 3.1 g/dL (3.4-5.0); ALKALINE PHOSPHATASE 72 U/L (30-120); ALT (SGPT) 24 U/L (10-68); BILIRUBIN - TOTAL 0.34 mg/dL (0.2-1.3); CALC OSMOLALITY 276 mosm/kg (275-300); CALCIUM 8.5 mg/dL (8.5-10.1); CARBON DIOXIDE 22.6 mmol/L (21.0-32.0); CHLORIDE - SERUM 103 mmol/L (98-107); CKMB 0.8 U/L (0.0-3.6); CREATINE KINASE 62 UL (21-232); CREATININE - SERUM 0.7 mg/dL (0.6-1.3); GLUCOSE 78 mg/dL (74-106); MAGNESIUM - SERUM 1.6 mg/dL (1.8-2.4); POTASSIUM - SERUM 4.4 mmol/L (3.5-5.1); SODIUM 137 mmol/L (136-145); UREA NITROGEN 23 mg/dL (7-18); eGFR NON AFRICAN AMERICAN > 90 mL/min (90-120)
[2020-09-07 03:11] LABS: TROPONIN-I < 0.017 ng/mL (0.000-0.060)
--- NOTE | 2020-09-07 07:00 | NUR ---
PT LYING IN BED. RESP EVEN AND UNLABORED. AAO X4. DENIES NEEDS AT THIS TIME. CLIR. BED IN LOWEST POSITION. SIDE RAILS X2
[2020-09-07 08:16] VITALS: BP 143/86
[2020-09-07 08:23] LABS: CKMB 0.9 U/L (0.0-3.6); CREATINE KINASE 55 UL (21-232)
[2020-09-07 08:24] LABS: TROPONIN-I < 0.017 ng/mL (0.000-0.060)
[2020-09-07 08:53] LABS: ALT (SGPT) 30 U/L (10-68); CALC OSMOLALITY 281 mosm/kg (275-300); CALCIUM 9.5 mg/dL (8.5-10.1); CHLORIDE - SERUM 102 mmol/L (98-107); CHOL - HDL RATIO 1.5 ratio (2.3-4.9); CHOLESTEROL, TOTAL 210 mg/dL (0-200); CREATININE - SERUM 0.8 mg/dL (0.6-1.3); GLUCOSE 90 mg/dL (74-106); HDL CHOLESTEROL 137 mg/dL (32-96); LDL CHOLESTEROL 63 mg/dL (0-100); LDL-HDL RATIO 0.5 ratio (1.5-3.5); POTASSIUM - SERUM 4.9 mmol/L (3.5-5.1); SODIUM 139 mmol/L (136-145); TRIGLYCERIDE 50 mg/dL (30-200); UREA NITROGEN 25 mg/dL (7-18); eGFR NON AFRICAN AMERICAN > 90 mL/min (90-120)
--- NOTE | 2020-09-07 09:40 | NUR ---
PT LEFT UNIT FOR HEART CATH ACCOMPANIED BY HOSPITAL STAFF
--- NOTE | 2020-09-07 11:10 | NUR ---
PT RETURNED TO UNIT FROM HEART CATH. PT SLEEPING BUT RAISES EASILY TO VERBAL STIMULI. DRESSING TO RIGHT GROIN C/D/I. NO BRUSING OR HARDNESS NOTED TO SITE. PEDAL PULSES PALPABLE BILATERALLY. VS WNL. 02 VIA NC AT [address] CLIR[address] BED IN LOWEST POSITION. SIDE RAILS X2. BED ALARM ON AND FUNCTIONING PROPERLY. PT INSTRUCTED TO LIE FLAT FOR 2 HOURS. PT VERBALIZED UNDERSTANDING
[2020-09-07 12:43] VITALS: BP 133/86
[2020-09-07 14:26] LABS: CKMB 0.6 U/L (0.0-3.6); CREATINE KINASE 44 UL (21-232); TROPONIN-I < 0.017 ng/mL (0.000-0.060)
--- NOTE | 2020-09-07 16:30 | NUR ---
PT DC HOME WITH FAMILY MEMBER. IV DC. IV CATH TIP INTACT. NO BLEEDING OR HEMATOMA NOTED TO RIGHT GROIN. DRESSING C/D/I. DC INSTRUCTIONS PROVIDED VERBALLY AND WRITTEN. PT VERBALIZED UNDERSTANDING.
[2020-09-07 16:34] VITALS: BP 126/72
--- NOTE | 2020-09-09 18:53 | MORECARE ---
CASE MANAGEMENT DISCHARGE SUMMARY PATIENT: HARRIET PEPE UNIT: [id number] ADM DATE: 09/06/20 AGE: 65 : 53 SEX: M ROOM/BED: D.2140 AUTHOR: WEI,DOC PHYSICIAN: REFERRING PHYSICIAN: KAYVA MONTAGUE MD DATE OF SERVICE: 09/09/20 Case Management Discharge Planning Summary DCP REVIEW SUMMARY ANTICIPATED D/C DATE: EXPECTED LOS : CASE STATUS: DCP Complete INITIAL REVIEW: 09/07/2020 INITIAL REVIEWER: Brii Salas FINAL DISCHARGE DISPOSITION: : FINAL REVIEWER: FINAL REVIEW DATE: DCP [employer] Questions & Answers QUESTION: ANSWER : PATIENT: HARRIET PEPE ENCOUNTER: [id number] MEDICAL RECORD#: [id number] ADMISSION DATE: 09/06/2020 DISCHARGE DATE: 09/07/2020 ATTENDING MD: KAVYA FRAGOSO : AGE: 65 MARITAL STATUS: M DC PLAN ID: [id number] FACILITY: [facility] PRINTED ON: 09/09/20 18:53 CT All edits/amendments must be made on the electronic document DICTATION DATE: 09/09/201852 BRUSH STAINER: DM 09/09/201852 RPT#: [id number] DC DATE:09/07/20 STATUS: DIS IN [facility] [address] [place] [address] END OF REPORT
--- NOTE | 2020-09-10 09:26 | OP ---
PATIENT NAME: HARRIET PEPE MEDICAL RECORD: [id number] :51 LOCATION:D.M2 D.2140 ADMISSION DATE:09/06/20 SURGEON: NORMA MCCOLLUM MD DATE OF OPERATION: 09/07/2020 PROCEDURES: Left heart catheterization, selective coronary angiography, IFR wire to LAD and circumflex, right femoral artery approach. CATHETERS: A 5-Swedish sheath, 5/4 left and right Ashleigh, 5/4 pig. The procedure was well tolerated. The patient was returned to the weinstein. Sheath removed. ExoSeal device was placed. FINDINGS: Left ventriculography in 30-degree GONZALEZ view; normal wall motion and normal systolic function. CORONARY ANATOMY: LEFT MAIN: Left main free of disease. LAD: Has a questionable stenosis in its mid portion; however, this is not flow obstructive via IFR wire. CIRCUMFLEX: Again questionable stenosis in its mid portion; however, IFR wire was greater than 0.9. RIGHT CORONARY: Widely patent. This is right dominant system and free of disease. IMPRESSION: No significant stenosis via IFR wire. Left ventricular function remains normal. TRANSINT:[id number] Voice Confirmation ID: [id number] DOCUMENT ID: [id number] NORMA MCCOLLUM MD at 0926 CC: [id number] DICTATION DATE: 09/07/20 1105 ETHNOARCHAEOLOGY PROFESSOR: 09/07/20 1249 DIS IN 09/07/20 [facility] [address] [place] [id number]
--- NOTE | 2020-09-10 09:26 | CN ---
PATIENT NAME:HARRIET PEPE MEDICAL RECORD: [id number] : 51 LOCATION:D. D.2140 ADMIT DATE: 09/06/20 ACCOUNT: [id number] CONSULTING PHYSICIAN: NORMA MCCOLLUM MD REFERRING PHYSICIAN: KAVYA MONTAGUE MD DATE OF CONSULTATION: 09/07/2020 HISTORY OF PRESENT ILLNESS: A 65-year-old gentleman with no known history of coronary artery disease, has a strong family coronary artery disease, hypertension, ongoing tobacco use, dyslipidemia in the past, thinks maybe on statins at one point, admitted with chest tightness and pressure with exertion. This has been ongoing for the past, probably 2 to 3 weeks, radiating to the jaw. I felt initially it was pulmonary; however, he had rest symptomatology yesterday, was admitted with acute coronary syndrome. PAST MEDICAL HISTORY: Includes; 1. History of obstructive pulmonary disease. 2. Hypertension. 3. Hyperlipidemia. ALLERGIES: CODEINE. MEDICATIONS: Include lisinopril 10 mg p.o. every day, Protonix 40 mg p.o. every day, [place] 10/325 every day. SOCIAL HISTORY: Smokes about a pack a day. Drinks wine occasionally. He is able to take care of all his ADLs. No set exercise program. REVIEW OF SYSTEMS: The patient reports easy bruising but reports no swollen glands. The patient reports no fever, no night sweats, no significant weight gain, no significant weight loss. No significant exercise tolerance. The patient reports no dry eyes, no irritation, no vision change. Patient reports no difficulty hearing and no ear pain. Patient reports no frequent nose bleeds or nose and sinus problems. Patient reports on arm pain on exertion. No shortness of breath while lying down. No history of heart murmur. Patient reports no cough, no wheezing or coughing up blood. Patient reports no abdominal pain, no vomiting. Normal appetite. No diarrhea and not vomiting blood. No nausea and no constipation. Patient reports no incontinence. No difficulty urinating. No hematuria. No increased frequency. Patient reports no muscle aches. No weakness, no arthralgias, no back pain. No swelling of the extremities. Patient reports no abnormal mole, no jaundice, no rashes. Reports no loss of consciousness. No weakness and no numbness. No seizures, dizziness, or headaches. The patient reports no depression, no sleep disturbance, feeling safe in a relationship and no alcohol abuse. Patient reports on fatigue. Reports no runny nose or sinus pressure. No itching, no hives, and no frequent sneezing. PHYSICAL EXAMINATION: GENERAL: No acute distress, appears stated age. VITAL SIGNS: Blood pressure 143/86, pulse 20 and regular. HEENT: Normocephalic, atraumatic. NECK: No bruits noted. HEART: Regular. Questionable S4 gallop. LUNGS: Slightly prolonged expiratory phase. Few expiratory wheezes. ABDOMEN: Soft and nontender. CONSULT REPORT [id number] HARRIET PEPE EXTREMITIES: Pulses are 2+. There is no edema. Normal range of motion. NEUROLOGIC: He is grossly intact. DIAGNOSTIC DATA: EKG shows minor nonspecific ST-T changes. IMPRESSION: Acute coronary syndrome in a gentleman with multiple risk factors including family history of smoking, hypertension, dyslipidemia, rapidly progressing symptoms. PLAN: For angiography and intervention based on the above. TRANSINT:[id number] Voice Confirmation ID: [id number] DOCUMENT ID: [id number] NORMA MCCOLLUM MD at 0926 CC: [id number] DICTATION DATE: 09/07/20 1104 RN IMMUNOLOGY: 09/07/20 1231 DIS IN 09/07/20 [facility] [address] [place] [address]
== END 2020-09-07 16:30 | disposition home or self-care (01) ==
LOC: D.ER 19:57 → D.M2 23:10 → OBSVTIME 23:10 → D.M2 23:10
PROVIDERS: Internal Medicine Interventional Cardiology; Student in an Organized Health Care Education/Training Program; ADMIT Family Medicine; ATTEND Family Medicine
DX: I20.0 Unstable angina (principal); R07.9 Chest pain, unspecified; I10 Essential (primary) hypertension; E78.5 Hyperlipidemia, unspecified; J44.9 Chronic obstructive pulmonary disease, unspecified; F17.203 Nicotine dependence unspecified, with withdrawal